=== PATIENT | female | born 1945 | race Caucasian/White ===

== ENCOUNTER 2016-11-08 16:28 | Emergency (ER) | payer MEDICARE, OTHER ==
[2016-11-08] MEDS ORDERED: Pantoprazole IV* 80 MG in NS 0.9% 250 ML* 250 ML IVPB ONE (17:17)
[2016-11-08] MEDS ORDERED: Pantoprazole IV* 80 MG in NS 0.9% 250 ML* 250 ML IV SCH (18:00)
[2016-11-08 18:03] LABS: Albumin 2.5 g/dL (3.2-5.2); BUN/Creatinine Ratio 49.3 (8-20); Calcium 8.7 mg/dL (8.6-10.3); EGFR African American 49.6 (>60); EGFR Non-African American 38.6 (>60); Globulin 4.5 g/dL (2-4); Potassium 5.2 mmol/L (3.5-5.0); Total Bilirubin 1.7 mg/dL (0.2-1.0)
[2016-11-08 18:04] LABS: Hematocrit 18 % (35-47); Mean Corpuscular HGB Conc 33 g/dl (31-36); Mean Corpuscular Hemoglobin 34 pg (27-31); Mean Corpuscular Volume 101 fL (80-97); Mean Platelet Volume 11 um3 (7.4-10.4); Red Blood Count 1.79 10^6/ul (4.0-5.4); Red Cell Distribution Width 18 % (10.5-15); White Blood Count 7.5 10^3/ul (3.5-10.8)
[2016-11-08 18:05] LABS: Comments Flag Yes
[2016-11-08] MEDS ORDERED: Pantoprazole IV* 40 MG ONE (18:11)
[2016-11-08] MEDS ORDERED: Octreotide Acetate* 50 MCG in NS 0.9% 50 ML* 50 ML IVPB ONE (18:14)
[2016-11-08] MEDS ORDERED: NS 0.9% 1000 ML* 500 ML IV ONE (18:23)
--- NOTE | 2016-11-08 19:34 | ED ---
Elo Livingston Auryana, scribed for Uri Reeder MD on 11/08/16 at 1749 . GI/ HPI - History of Current Complaint Chief Complaint: EDGIBleed Time Seen by Provider: 11/08/16 17:05 Stated Complaint: SENT FOR TRANSFUSION Pain Intensity: 7 - Allergy/Home Medications Allergies/Adverse Reactions: Allergies Allergy/AdvReac Type Severity Reaction Status Date / Time Gemfibrozil Allergy Mild Unknown Verified 11/01/16 15:27 Reaction Details Lisinopril Allergy Mild Rash Verified 11/01/16 15:27 PMH/Surg Hx/FS Hx/Imm Hx Previously Healthy: No - portal HTN, ascites GI History: Reports: Other GI Disorders - history of GI bleed, and esophageal bleed Infectious Disease History: No Infectious Disease History: Denies: Traveled Outside the [place] in Last 30 Days - Family History Known Family History: Positive: Other - cancer, perforated bowel, alzheimers - Social History Occupation: Retired Alcohol Use: None Substance Use Type: Reports: None Smoking Status (MU): Former Smoker Review of Systems Constitutional: Negative Negative: Fever, Chills Eyes: Negative Negative: Erythema ENT: Negative Negative: Sore Throat Positive: Other - low BP. Negative: Chest Pain Respiratory: Negative Negative: Shortness Of Breath, Cough Positive: Nausea, Other - melena . Negative: Abdominal Pain, Vomiting Genitourinary: Negative Negative: dysuria, hematuria Musculoskeletal: Negative Negative: Myalgia, Edema Skin: Negative Negative: Rash Neurological: Negative, Other - no dizziness Psychological: Normal All Other Systems Reviewed And Are Negative: Yes Physical Exam - Summary Physical Exam Summary: Constitutional: Well-developed, Well-nourished, Alert. (-) Distressed Skin: Warm, Dry. Pale appearance. HENT: Normocephalic; Atraumatic Eyes: Conjunctiva normal Neck: Musculoskeletal ROM normal neck. (-) JVD, (-) Stridor, (-) Tracheal deviation Cardio: Rhythm regular, rate normal, Heart sounds normal; Intact distal pulses; The pedal pulses are 2+ and symmetric. Radial pulses are 2+ and symmetric. (-) Murmur Pulmonary/Chest wall: Effort normal. (-) Respiratory distress, (-) Wheezes, (-) Rales Abd: Soft, (-) Tenderness, (-) Distension, (-) Guarding, (-) Rebound. Mild ascites. Musculoskeletal: (-) Edema Lymph: (-) Cervical adenopathy Neuro: Alert, Oriented x3 Psych: Mood and affect Normal Triage Information Reviewed: Yes Vital Signs On Initial Exam: Initial Vitals Temp Pulse Resp BP Pulse Ox 98 F 47 16 86/75 100 11/08/16 16:40 11/08/16 16:40 11/08/16 16:40 11/08/16 16:40 11/08/16 16:40 Vital Signs Reviewed: Yes - [place] Coma Scale Coma Scale Total: 15 Diagnostics - Vital Signs Vital Signs Temp Pulse Resp BP Pulse Ox 11/08/16 17:19 47 15 101/40 100 11/08/16 17:12 47 14 92/36 100 11/08/16 17:09 47 14 100 11/08/16 16:40 98 F 47 16 86/75 100 - Laboratory Result Diagrams: 11/08/16 17:19 11/08/16 17:19 Lab Statement: Any lab studies that have been ordered have been reviewed, and results considered in the medical decision making process. - EKG 17:08 EKG Interpretation: sinus bradycardia @ 48 bpm, no STEMI. Re-Evaluation - Re-Evaluation First Eval Re-Evaluation Time: 18:00 - patient agrees with plan to admit Second Eval Re-Evaluation Time: 19:15 Comment: Blood pressure is 140 systolic. The patient has responded favorable to IV fluids and she is stable. GIGU Course/Dx - Course Assessment/Plan: 71 year old female BIBA for GI bleed s/p appointment at [facility] with Dr. Hoover in [place]. Patient was referred here for further management for low Hgb, and low blood pressure with blood transfusion. She c/o of nausea earlier today, melena, and reports increased weight gain since paracentesis last week. She denies any chest pain, SOB or any hematemesis. Patient reports that she received a blood transfusion last week. She has had prior episodes of GI bleed with unknown source and is scheduled for T.I.P.S. procedure. PMHx is significant for GI and esophageal bleed s/p abdominal and esophageal varices, ascites with paracentesis (1 week ago), portal HTN, and fatty liver. DDx: upper GI bleed, lower GI bleed, peptic ulcer, duodenal ulcer. Blood work shows RBC 1.79, Hbg 6.0, Hct 18, Platelet count 55, INR 0.98 , APTT 26.5, sodium 125, potassium 5.2, CO2 19, BUN 67, creatinine 1.36, BUN/ Creatinine ratio 49.3, GLUCOSE 257, total bilirubin 1.70, albumin 2.5, globin 4.5, albumin/globin ratio 0.6. EKG shows sinus bradycardia @ 48 bpm, no STEMI. Dr. Jewell from [facility] was consulted on the case. He agrees and accepts the patient for transfer. He requests an octreotide drip. The case was discussed with Dr. Ugarte (hospitalist at [facility]) and he accepts patient to telemetry unit. On re-evaluation, her blood pressure is 140 systolic. The patient has responded favorable to IV fluids and she is stable. Patient agrees with plan for transfer. Dx: GI bleed, blood loss anemia, and hypovolemia. - Diagnoses Differential Diagnoses - Female: Other - upper GI bleed, lower GI bleed, peptic ulcer, duodenal ulcer Provider Diagnoses: GI bleed, Hypovolemia, Blood loss anemia - Physician Notifications Discussed Care Of Patient With: Romero Burger Time Discussed With Above Provider: 17:00 - recommends admission and will consult tomorrow morning Instructed by Provider To: Admit As Inpatient - Critical Care Time Critical Care Time: 75-104 min - 90 MINUTES Discharge - Discharge Plan Condition: Stable Disposition: TRANS HIGHER LVL OF CARE FAC GI Bleed HPI - HPI Summary HPI Summary: 71 year old female BIBA for GI bleed s/p appointment at [facility] with Dr. Hoover in [place]. Patient was referred here for further management for low Hgb, and low blood pressure with blood transfusion. She c/o of nausea earlier today , melena, and reports increased weight gain since paracentesis last week. She denies any chest pain, SOB or any hematemesis. Patient reports that she received a blood transfusion last week. She has had prior episodes of GI bleed with unknown source and is scheduled for T.I.P.S. procedure. PMHx is significant for GI and esophageal bleed s/p abdominal and esophageal varices, ascites with paracentesis (1 week ago), portal HTN, and fatty liver. - History Of Current Complaint Chief Complaint: EDGIBleed Stated Complaint: SENT FOR TRANSFUSION Time Seen by Provider: 11/08/16 17:05 Hx Obtained From: Patient Hx Last Menstrual Period: n/a ?: No Onset/Duration: Gradual Onset, Still Present Timing: Constant Severity: Black Tarry Stool Severity Initially: Moderate Severity Currently: Moderate Pain Intensity: 7 Pain Scale Used: 0-10 Numeric Associated Pain: None Associated Signs And Symptoms: Positive: Nausea, Other - melena Related History: Similar Episode/Dx As - SEE HPI, Other Bleeding Source(s) - SEE HPI - Allergies/Home medications Allergies/Adverse Reactions: Allergies Allergy/AdvReac Type Severity Reaction Status Date / Time Gemfibrozil Allergy Mild Unknown Verified 11/01/16 15:27 Reaction Details Lisinopril Allergy Mild Rash Verified 11/01/16 15:27 The documentation as recorded by the Elo pickering Auryana accurately reflects the service I personally performed and the decisions made by Lilli giordano Jerry, MD.
[2016-11-08] MEDS ORDERED: Ondansetron INJ* 2 MG/ML VIAL IV ONE (20:19)
[2016-11-08 20:52] VITALS: BP 130/42
== END 2016-11-08 20:52 | disposition short-term general hospital (02) ==
LOC: ED 16:28
DX: K92.2 Gastrointestinal hemorrhage, unspecified (principal); R11.0 Nausea; D50.0 Iron deficiency anemia secondary to blood loss (chronic); E86.1 Hypovolemia
CPT/HCPCS: 36415; 36430; 80053; 85025; 85610; 85730; 86850; 86900; 86901; 86922; 93005; 99285; J2405; P9016; P9040

== ENCOUNTER 2016-12-31 12:57 | Inpatient (IN) | payer MEDICARE, OTHER ==
[2016-12-31 14:07] LABS: Hematocrit 24 % (35-47); Hemoglobin 8.3 g/dl (12.0-16.0); Mean Corpuscular HGB Conc 35 g/dl (31-36); Mean Corpuscular Hemoglobin 34 pg (27-31); Mean Corpuscular Volume 96 fL (80-97); Mean Platelet Volume 8 um3 (7.4-10.4); Red Blood Count 2.48 10^6/ul (4.0-5.4); Red Cell Distribution Width 25 % (10.5-15); White Blood Count 4.2 10^3/ul (3.5-10.8)
[2016-12-31 14:08] LABS: Add Diff/Slide Review? Manual Diff Added; Comments Flag Yes
[2016-12-31 14:22] LABS: Albumin 2.4 g/dL (3.2-5.2); BUN/Creatinine Ratio 25.3 (8-20); C Reactive Protein 21.87 mg/L (< 5.00); EGFR Non-African American 64.6 (>60); Globulin 5.5 g/dL (2-4); Total Bilirubin 7.4 mg/dL (0.2-1.0); Total Protein 7.9 g/dL (6.4-8.9)
[2016-12-31 14:32] LABS: Eosinophils % 8 % (0-6); Immature Granulocytes 1 % (0-9); Myelocytes % 1 % (0-1); Neutrophil % 84 % (38-83)
[2016-12-31 14:33] LABS: Add Path Review? YES; Hypochromasia 1+
[2016-12-31 15:08] LABS: Corrected Retic Count 9.6 % (0.5-1.5); Immature Retic Fraction 0.56
[2016-12-31 15:10] LABS: Comments Flag Yes
--- NOTE | 2016-12-31 15:15 | ED ---
Lilo Livingston Alfonso, scribed for Jamie Mckenzie MD on 12/31/16 at 1326 . Complex/Multi-Sys Presentation - HPI Summary HPI Summary: This patient is a 71 year old F BIBA to [facility] accompanied by with a chief complaint of general weakness since this morning. The patient rates the pain 0/10 in severity. Symptoms aggravated by nothing. Symptoms alleviated by nothing. Patient reports confusion. reports screaming, and shoulder pain. Patient denies melena. PMHx includes fatty liver disease, and DMII. - History Of Current Complaint Chief Complaint: EDGeneral Time Seen by Provider: 12/31/16 13:16 Hx Obtained From: Patient, Family/Jaw Skinner Onset/Duration: Sudden Onset, Lasting Hours, Still Present Timing: Constant Aggravating Factor(s): nothing Alleviating Factor(s): nothing Associated Signs And Symptoms: Positive: Other - confusion. reports screaming, and shoulder pain. Patient denies melena. - Allergies/Home Medications Allergies/Adverse Reactions: Allergies Allergy/AdvReac Type Severity Reaction Status Date / Time Gemfibrozil Allergy Mild Unknown Verified 12/11/16 12:53 Reaction Details Lisinopril Allergy Mild Rash Verified 12/11/16 12:53 PMH/Surg Hx/FS Hx/Imm Hx Endocrine/Hematology History: Reports: Hx Diabetes GI History: Reports: Other GI Disorders - history of GI bleed, and esophageal bleed. fatty liver disease Sensory History: Denies: Hx Deafness Opthamlomology History: Denies: Hx Legally Blind Infectious Disease History: Denies: Traveled Outside the [place] in Last 30 Days - Family History Known Family History: Positive: Other - cancer, perforated bowel, alzheimers - Social History Alcohol Use: None Substance Use Type: Reports: None Smoking Status (MU): Former Smoker Review of Systems Positive: Other - Negative melena Positive: Other - shoulder pain Neurological: Other - Weakness, screaming and confusion All Other Systems Reviewed And Are Negative: Yes Physical Exam Triage Information Reviewed: Yes Vital Signs On Initial Exam: Initial Vitals Temp Pulse Resp BP Pulse Ox 97.8 F 54 18 136/33 99 12/31/16 13:00 12/31/16 13:00 12/31/16 13:00 12/31/16 13:00 12/31/16 13:00 Vital Signs Reviewed: Yes Appearance: Positive: Well-Appearing, No Pain Distress Skin: Positive: Warm, Dry, Jaundiced Head/Face: Positive: Normal Head/Face Inspection Eyes: Positive: Other: - scleral icterus ENT: Positive: Normal ENT inspection Neck: Positive: Supple, Nontender Respiratory/Lung Sounds: Positive: Clear to Auscultation, Breath Sounds Present Cardiovascular: Positive: RRR Abdomen Description: Positive: Nontender, Soft Bowel Sounds: Positive: Present Musculoskeletal: Positive: Other - Pitting edema +1 bilaterally. Neurological: Positive: Sensory/Motor Intact, Alert, Oriented to Person Place, Time, Other - Asterixis. Psychiatric: Positive: Affect/Mood Appropriate Diagnostics - Vital Signs Vital Signs Temp Pulse Resp BP Pulse Ox 12/31/16 13:00 97.8 F 54 18 136/33 99 - Laboratory Lab Results: Lab Results 12/31/16 12/31/16 12/31/16 Range/Units 13:56 13:56 13:56 WBC (3.5-10.8) 10^3/ul RBC (4.0-5.4) 10^6/ul RBC (Retic) (4.6-6.2) 10^6/ul Hgb (12.0-16.0) g/dl Hct (35-47) % HCT (Retic) (35-47) % MCV (80-97) fL MCH (27-31) pg MCHC (31-36) g/dl RDW (10.5-15) % Plt Count (150-450) 10^3/ul MPV (7.4-10.4) um3 Immature Gran % (Auto) (0-9) % Neut % (Auto) (38-83) % Lymph % (Auto) (25-47) % Atkinson % (Auto) (1-9) % Eos % (Auto) (0-6) % Baso % (Auto) (0-2) % Absolute Neuts (auto) (1.5-7.7) 10^3/ul Absolute Lymphs (auto) (1.0-4.8) 10^3/ul Absolute Monos (auto) (0-0.8) 10^3/ul Absolute Eos (auto) (0-0.6) 10^3/ul Absolute Basos (auto) (0-0.2) 10^3/ul Absolute Nucleated RBC 10^3/ul Neutrophils % (38-83) % Lymphocytes % (25-47) % Monocytes % (0-13) % Eosinophils % (0-6) % Myelocytes % (0-1) % Nucleated RBC % Normal RBC Morphology Hypochromasia Retic Count, Calc (0.5-1.5) % Corrected Retic Count (0.5-1.5) % Retic Shift Factor Retic Production Index Immature Retic Fraction Mean Retic Volume Hem Pathologist Commnt INR (Anticoag Therapy) 1.29 H (0.89-1.11) Sodium 133 (133-145) mmol/L Potassium 4.0 (3.5-5.0) mmol/L Chloride 101 (101-111) mmol/L Carbon Dioxide 27 (22-32) mmol/L Anion Gap 5 (2-11) mmol/L BUN 22 (6-24) mg/dL Creatinine 0.87 (0.51-0.95) mg/dL Est GFR ( Amer) 83.0 (>60) Est GFR (Non-Af Amer) 64.6 (>60) BUN/Creatinine Ratio 25.3 H (8-20) Glucose 268 H (70-100) mg/dL Lactic Acid (0.5-2.0) mmol/L Calcium 9.0 (8.6-10.3) mg/dL Total Bilirubin 7.40 H (0.2-1.0) mg/dL AST 42 H (13-39) U/L ALT 15 (7-52) U/L Alkaline Phosphatase 104 (34-104) U/L Ammonia 74 H (16-53) mol/L Lactate Dehydrogenase Pending C-Reactive Protein 21.87 H (< 5.00) mg/L Total Protein 7.9 (6.4-8.9) g/dL Albumin 2.4 L (3.2-5.2) g/dL Globulin 5.5 H (2-4) g/dL Albumin/Globulin Ratio 0.4 L (1-3) Lipase 16 (11.0-82.0) U/L 12/31/16 12/31/16 Range/Units 13:56 13:56 WBC 4.2 (3.5-10.8) 10^3/ul RBC 2.48 L (4.0-5.4) 10^6/ul RBC (Retic) 6.18 (4.6-6.2) 10^6/ul Hgb 8.3 L (12.0-16.0) g/dl Hct 24 L (35-47) % HCT (Retic) 60 H (35-47) % MCV 96 (80-97) fL MCH 34 H (27-31) pg MCHC 35 (31-36) g/dl RDW 25 H (10.5-15) % Plt Count 52 L (150-450) 10^3/ul MPV 8 (7.4-10.4) um3 Immature Gran % (Auto) 1 (0-9) % Neut % (Auto) 79.3 (38-83) % Lymph % (Auto) 11.5 L (25-47) % Atkinson % (Auto) 3.1 (1-9) % Eos % (Auto) 5.8 (0-6) % Baso % (Auto) 0.3 (0-2) % Absolute Neuts (auto) 3.5 (1.5-7.7) 10^3/ul Absolute Lymphs (auto) 0.2 L (1.0-4.8) 10^3/ul Absolute Monos (auto) 0.1 (0-0.8) 10^3/ul Absolute Eos (auto) 0.3 (0-0.6) 10^3/ul Absolute Basos (auto) 0 (0-0.2) 10^3/ul Absolute Nucleated RBC 0.12 10^3/ul Neutrophils % 84 H (38-83) % Lymphocytes % 5 L (25-47) % Monocytes % 2 (0-13) % Eosinophils % 8 H (0-6) % Myelocytes % 1 (0-1) % Nucleated RBC % 6.2 Normal RBC Morphology Not Reportable Hypochromasia 1+ Retic Count, Calc 7.2 H (0.5-1.5) % Corrected Retic Count 9.6 H (0.5-1.5) % Retic Shift Factor 1.0 Retic Production Index 9.60 Immature Retic Fraction 0.56 Mean Retic Volume 126.8 Hem Pathologist Commnt Pending INR (Anticoag Therapy) (0.89-1.11) Sodium (133-145) mmol/L Potassium (3.5-5.0) mmol/L Chloride (101-111) mmol/L Carbon Dioxide (22-32) mmol/L Anion Gap (2-11) mmol/L BUN (6-24) mg/dL Creatinine (0.51-0.95) mg/dL Est GFR ( Amer) (>60) Est GFR (Non-Af Amer) (>60) BUN/Creatinine Ratio (8-20) Glucose (70-100) mg/dL Lactic Acid 1.9 (0.5-2.0) mmol/L Calcium (8.6-10.3) mg/dL Total Bilirubin (0.2-1.0) mg/dL AST (13-39) U/L ALT (7-52) U/L Alkaline Phosphatase (34-104) U/L Ammonia (16-53) mol/L Lactate Dehydrogenase C-Reactive Protein (< 5.00) mg/L Total Protein (6.4-8.9) g/dL Albumin (3.2-5.2) g/dL Globulin (2-4) g/dL Albumin/Globulin Ratio (1-3) Lipase (11.0-82.0) U/L Result Diagrams: 12/31/16 13:56 12/31/16 13:56 Lab Statement: Any lab studies that have been ordered have been reviewed, and results considered in the medical decision making process. Re-Evaluation - Re-Evaluation First Eval Re-Evaluation Time: 15:01 Comment: Discussed plan for admission with pt. Complex Multi-Symp Course/Dx Course Of Treatment: Ms. Mckee presented with increasing confusion. She was jaundiced with asterixis and an elevated NH4. She will be admitted to the hospital to W/U her possible GI bleed and resultant hepatic encephalopathy. - Diagnoses Provider Diagnoses: Hepatic encephalopathy - Physician Notifications Discussed Care Of Patient With: Pamela Alamo Time Discussed With Above Provider: 15:00 Instructed by Provider To: Other - Consulted Dr. Alamo (hospitalist) who agrees to admit and Dr. Watt will consult. Discharge - Discharge Plan Condition: Stable Disposition: ADMITTED TO [facility] Referrals: Chris Simpson MD [Primary Care Provider] - The documentation as recorded by the Lilo pickering Alfonso accurately reflects the service I personally performed and the decisions made by , Jamie Mckenzie MD.
[2016-12-31] MEDS ORDERED: Ondansetron INJ* 2 MG/ML VIAL IV PRN (15:40)
[2016-12-31] MEDS ORDERED: Dextrose 50% Syringe 50 ML* 25 GM/50 ML SYRINGE IV PUSH PRN (15:43)
--- NOTE | 2016-12-31 16:13 | RAD ---
INDICATION: Altered mental status. COMPARISON: There are no prior studies available for comparison. TECHNIQUE: Contiguous axial sections of the brain were obtained from the skull base to the vertex without contrast. FINDINGS: The ventricles, cisterns and sulci are enlarged consistent with age-related atrophy. No significant focal abnormality or mass effect is seen. There is no evidence for hemorrhage. No significant focal osseous abnormality is seen. The visualized portion of the paranasal sinuses and mastoid air cells appear clear. IMPRESSION: NO EVIDENCE FOR GROSS ACUTE INFARCT, MASS EFFECT OR HEMORRHAGE.
[2016-12-31] MEDS: Furosemide IV* 10 MG/ML VIAL (40 MG) IV SLOW PU SCH (17:29)
[2016-12-31] MEDS: Insulin LISPRO* 1 UNITS UNIT SUBCUT SCH (17:56)
--- NOTE | 2016-12-31 18:03 | HP ---
CC: Dr. Simpson; Dr. Raphael * HISTORY AND PHYSICAL: DATE OF ADMISSION: 12/31/16. PRIMARY CARE PROVIDER: Dr. Simpson. ATTENDING PHYSICIAN WHILE IN THE HOSPITAL: Pamela Mejia MD * (Report dictated by Fabrice Gonzalez NP). CHIEF COMPLAINT: Altered mental status. CONSULTING UPHOLSTERY CUTTER: Dr. Raphael. HISTORY OF PRESENT ILLNESS: Ms. Mckee is a 71-year-old female patient with a history of nonalcoholic cirrhosis. She has a history of portal hypertension, GI bleed in the past with varices, history of diabetes, aortic stenosis, hyperlipidemia, and anemia. She comes in today, according to the this morning was acting quite frantic, not acting herself, acting very confused, and did not know what was going on. She thought she was going to . She was saying things that just were not making any sense. He was concerned and brought her into the hospital. There were reports by the patient that she was taking lactulose, but had stopped taking it within at least the last 1 to 2 weeks and also had stopped taking her rifaximin. There have been no reports of bleeding to me. There have been no reports of vomiting blood. No tarry stools. She has been worked up in the outpatient setting for anemia and actually was supposed to see Dr. Raphael for this tomorrow. There has been no reports of fever, no reports of abdominal discomfort. With the exception of the rifaximin and lactulose, she had been taking her other medications as prescribed , but unfortunately, the patient's confusion was not getting any better, so she came into the hospital. The family does note that in the last week she has had a progressive worsening decline in the sense that she has been more tired, she has been a little confused at times, but today it was much worse. She was evaluated in the ED, it was noted that her ammonia was 74 and because of this, the hospitalist service was asked to evaluate for admission. PAST MEDICAL HISTORY: Significant for: 1. Cirrhosis. 2. ROSA. 3. Portal hypertension. 4. History of GI bleed. 5. Esophageal varices. 6. Diabetes. 7. Aortic stenosis. 8. Hyperlipidemia. 9. Anemia, which is being worked up in the outpatient setting. We will try to get those records. PAST SURGICAL HISTORY: 1. She has had a TIPS. 2. . 3. Variceal banding. 4. Laparoscopic cholecystectomy. HOME MEDICATIONS: Include: 1. Rifaximin 550 mg p.o. b.i.d. 2. Nitro 0.4 mg sublingual q.5 minutes p.r.n. chest pain x3. 3. Imodium 2 mg p.o. daily as needed. 4. Lantus 30 units subcu at bedtime. 5. Insulin aspart 5 to 10 units subcu t.i.d. sliding scale. 6. Lasix 80 mg daily. 7. Ferrous gluconate 1 tablet p.o. b.i.d. 8. Aldactone 100 mg p.o. daily. 9. Simethicone 125 mg p.o. every 6 hours as needed. 10. Omeprazole 20 mg daily. 11. Nadolol (Corgard) 40 mg daily. 12. Multivitamin 1 tablet daily. 13. Detrol 2 mg p.o. at bedtime. ALLERGIES TO MEDICATIONS: Include GEMFIBROZIL and LISINOPRIL. FAMILY HISTORY: Mother had a history of CVA. Father's history was reviewed. There is no report of cirrhosis or CVA, and otherwise is noncontributory. SOCIAL HISTORY: She does not smoke, she does not drink. She lives at [facility]. Surrogate decision makers are her daughter and her . REVIEW OF SYSTEMS: There is no documented fever. There was no significant weight change reported. There was no double vision. No ear discharge. No rhinorrhea. No sore throat. No thyroid enlargement. She denied having any chest discomfort. There was no shortness of breath. There was no report of abdominal pain. There was no nausea or vomiting. Again, no reports of tarry stools or vomiting blood or coffee-ground emesis. She denied any loss of consciousness, no seizure activity is reported. Review of 14 systems completed , all others are negative. PHYSICAL EXAMINATION GENERAL: At this time, Ms. Mckee is a 71-year-old female patient. She is sitting on the ER stretcher. She does not appear to be in any acute distress. VITAL SIGNS: Blood pressure 147/45, pulse 62, respirations 18, O2 sat 99%, temperature 98.7. HEENT: Head is atraumatic, normocephalic. Eyes: EOMs are intact. Sclerae was anicteric. Throat: Oral mucosa appears to be moist. No oropharyngeal erythema. NECK: Supple. LUNGS: Clear to auscultation bilaterally. No wheezes, rales or rhonchi. HEART: Sounds S1 and S2. Regular rate and rhythm. No murmurs, rubs or gallops. ABDOMEN: Soft, flat. There did appear to be a mild amount of ascites, but it was nontender. EXTREMITIES: Pulses were 2+ throughout. She is able to move all 4 extremities. She had +2 pitting edema bilaterally. NEUROLOGIC: She is awake, she is alert and oriented x3, but when talking with her at times she does not follow conversation well and sometimes her responses are delayed and she does repeat herself at times, which is not normal according to the family. Auzn-ac-[id number] intact bilaterally. Pjtozu-cu-bqli intact bilaterally. She has no drift noted. No pronator drift. She does have asterixis noted on exam, but no other focal neuro deficits were noted and, again , responses were slow when she wanted to answer. SKIN: Intact. DIAGNOSTIC STUDIES/LABORATORY DATA: Labs revealed a WBC of 4.2, RBC of 2.48, hemoglobin of 8.3, hematocrit was 24. Her hemoglobin normally runs right around 9, according to the family, and just 5 days ago it was 9. Platelet count was 52. INR 1.29. Sodium is 134, potassium 4, chloride of 101, bicarb 27 , BUN 22, creatinine of 0.87, glucose 268, lactate 1.9, calcium 9. Total bili was 7.4. It has been that high just 5 days ago and her LDH is pending. Ammonia 74. AST 42, ALT 15, alk phos 104. CRP 21, lipase 16. Urine is pending. Old medical records were reviewed. ASSESSMENT AND PLAN: Ms. Mckee is a 71-year-old female patient coming into the ER today with complaints of altered mental status. On evaluation today, it does appear that she again appears to be encephalopathic. She will be admitted under observation status for: 1. Altered mental status. I suspect that this is related to hepatic encephalopathy from medication noncompliance. She does state she stopped taking her lactulose because she did not like the way it made her feel. She also stopped taking her rifaximin. We are going to get her back on both these medications. I will check a CT of the brain to make sure there is not any other cause of altered mental status. I will also check her urine as well. We will get her back on these medications. Repeat the ammonia in the morning and we will continue to follow her clinically. 2. Anemia. Again, I am going to get the records from Dr. Hoover's office and also get the records from [facility]. She just had a TIPS in the beginning of last month and also she is scheduled to see Dr. Raphael. We will have him come and evaluate the patient with concern for possible hemolytic anemia. According to the patient, her LDH and haptoglobin were both high, but we will check the LDH again here today. I did send off the haptoglobin and we are also getting a direct Yamel test as well. Again, Dr. Raphael will be in to evaluate. 3. 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 At this point, we will go ahead and continue the spironolactone. I have converted her Lasix to IV. In addition to this, we will continue get her on the rifaximin and the lactulose and we will continue her nadolol as well. 4. Portable hypertension. Continue meds as prescribed. 5. History of GI bleed and varices. She does not appear to be actively bleeding currently. We will monitor for this. 6. Diabetes. Put on lispro sliding scale. 7. Aortic stenosis. Follow up with primary. 8. Hyperlipidemia. Continue the current meds as prescribed. 9. DVT prophylaxis. Because of, again, the low platelets and the fact that she does have a history of bleeding and anemia, I think it is going to be safer to put her on SCDs and holding on heparin. 10. Code status. She is full code. 11. Fluids, electrolytes, and nutrition. She can have a consistent carb diet. TIME SPENT: Time spent on the admission was 60 minutes, greater than half the time was spent face to face with the patient obtaining my history and physical, the other half of the time was spent on going over the plan of care with the patient and implementing the place of care. I did discuss the plan of care with my attending, Dr. Mejia, she is in agreement. FABRICE GONZALEZ, HAND METHOD LASTING MACHINE OPERATOR [id number]/[facility] #: [id number] [place]
[2016-12-31] MEDS: RiFAXimin* 550 MG TAB PO SCH (20:38)
[2016-12-31] MEDS: Ferrous Gluconate TAB* 324 MG TAB PO SCH (20:38)
[2016-12-31] MEDS: Oxybutynin TAB* 5 MG PO SCH (20:38)
[2016-12-31] MEDS: Insulin GLARGINE(*) 1 UNITS UNIT SUBCUT SCH (20:40)
[2016-12-31] MEDS ORDERED: RiFAXimin* 550 MG TAB PO SCH (21:00)
[2017-01-01 05:01] LABS: Hematocrit 20 % (35-47); Hemoglobin 7.2 g/dl (12.0-16.0); Mean Corpuscular HGB Conc 35 g/dl (31-36); Mean Corpuscular Hemoglobin 34 pg (27-31); Mean Corpuscular Volume 97 fL (80-97); Mean Platelet Volume 8 um3 (7.4-10.4); Red Blood Count 2.11 10^6/ul (4.0-5.4); Red Cell Distribution Width 25 % (10.5-15); White Blood Count 3.5 10^3/ul (3.5-10.8)
[2017-01-01 05:02] LABS: Add Diff/Slide Review? Manual Diff Added; Comments Flag Yes
[2017-01-01 06:17] LABS: BUN/Creatinine Ratio 21.4 (8-20); Calcium 8.7 mg/dL (8.6-10.3); EGFR African American 86.5 (>60); EGFR Non-African American 67.2 (>60); Potassium 4.3 mmol/L (3.5-5.0)
[2017-01-01] MEDS: Insulin LISPRO* 1 UNITS UNIT SUBCUT SCH ×3 (07:56→17:26)
[2017-01-01 09:05] LABS: Direct Bilirubin 1.9 mg/dL (0.03-0.18); Indirect Bilirubin 4.2 mg/dL (0.3-1.0); Total Bilirubin 6.1 mg/dL (0.2-1.0)
[2017-01-01] MEDS: Nadolol TAB* 40 MG PO SCH (10:18)
[2017-01-01] MEDS: Ferrous Gluconate TAB* 324 MG TAB PO SCH ×2 (10:18→21:32)
[2017-01-01] MEDS: Spironolactone TAB* 25 MG PO SCH (10:18)
[2017-01-01] MEDS: Multivitamins/Minerals TAB PO SCH (10:18)
[2017-01-01] MEDS: Omeprazole CAP* 20 MG PO SCH (10:19)
[2017-01-01] MEDS: RiFAXimin* 550 MG TAB PO SCH ×2 (10:19→21:32)
[2017-01-01] MEDS: Furosemide IV* 10 MG/ML VIAL (40 MG) IV SLOW PU SCH (10:19)
[2017-01-01] MEDS ORDERED: Metoclopramide IV* 5 MG/ML 2 ML VIAL IV PRN (13:01)
[2017-01-01 14:25] LABS: Urine Bilirubin Negative (Negative); Urine Glucose Negative (Negative); Urine Nitrite Negative (Negative)
--- NOTE | 2017-01-01 18:18 | PN ---
Subjective Date of Service: 01/01/17 Interval History: Patient's mental state is much improved over reports from yesterday. Patient was able to take lactulose and rifaximin. Patient had nausea and multiple episodes of vomiting after lactulose administration that was unaffected by zofran. Patient denies CP, SOB, Diarrhea, constipation, black, tarry, or bloody stools. Family History: Unchanged from Admission Social History: Unchanged from Admission Past Medical History: Unchanged from Admission Objective Active Medications: Dextrose (D50w Syringe 50 Ml*) 12.5 gm IV PUSH .FOR FS < 60 - SS PRN PRN Reason: FS < 60 Ferrous Gluconate (Fergon Tab*) 324 mg PO BID [facility] Last Admin: 01/01/17 10:18 Dose: 324 mg Furosemide (Lasix Iv*) 80 mg IV SLOW PU DAILY SERG Last Admin: 01/01/17 10:19 Dose: 80 mg Insulin Glargine (Lantus(*)) 30 units SUBCUT BEDTIME SERG Last Admin: 12/31/16 20:40 Dose: 30 unit Insulin Human Lispro (Humalog*) 0 units SUBCUT AC SERG PRN Reason: Protocol Last Admin: 01/01/17 17:26 Dose: 8 units Lactulose (Lactulose*) 30 ml PO BID [facility] Metoclopramide HCl (Reglan Iv*) 5 mg IV Q6H PRN PRN Reason: NAUSEA/VOMITING Last Admin: 01/01/17 16:09 Dose: 5 mg Multivitamins/Minerals (Theragran/Minerals Tab*) 1 tab PO DAILY SERG Last Admin: 01/01/17 10:18 Dose: 1 tab Nadolol (Corgard Tab*) 40 mg PO DAILY SERG Last Admin: 01/01/17 10:18 Dose: 40 mg Omeprazole (Prilosec Cap*) 20 mg PO DAILY SERG Last Admin: 01/01/17 10:19 Dose: 20 mg Ondansetron HCl (Zofran Inj*) 4 mg IV Q6H PRN PRN Reason: NAUSEA Last Admin: 01/01/17 12:05 Dose: 4 mg Oxybutynin Chloride (Ditropan Tab*) 5 mg PO BEDTIME SERG PRN Reason: Protocol Last Admin: 12/31/16 20:38 Dose: 5 mg Rifaximin (Xifaxan*) 550 mg PO BID SERG Last Admin: 01/01/17 10:19 Dose: 550 mg Spironolactone (Aldactone Tab*) 100 mg PO DAILY [facility] Last Admin: 01/01/17 10:18 Dose: 100 mg Vital Signs 12/31/16 12/31/16 01/01/17 20:22 23:13 03:16 Temperature 98.0 F 97.6 F 97.3 F Pulse Rate 61 63 61 Respiratory 20 13 16 Rate Blood Pressure 125/41 156/49 120/33 (mmHg) O2 Sat by Pulse 99 100 100 Oximetry 01/01/17 01/01/17 01/01/17 06:28 10:26 12:46 Temperature 98.6 F 98.1 F Pulse Rate 66 63 Respiratory 13 16 Rate Blood Pressure 110/35 126/56 138/48 (mmHg) O2 Sat by Pulse 98 100 Oximetry Oxygen Devices in Use Now: None Appearance: Patient is a 71yo female who appears stated age and is sitting confortably in her chair. Eyes: No Scleral Icterus, PERRLA Ears/Nose/Mouth/Throat: Clear Oropharnyx, Mucous Membranes Moist, - - Slight jaundice of soft palate, mucosa pale. Neck: NL Appearance and Movements; NL JVP Respiratory: Symmetrical Chest Expansion and Respiratory Effort, Clear to Auscultation Cardiovascular: NL Sounds; No Murmurs; No JVD, RRR, No Edema Abdominal: NL Sounds; No Tenderness; No Distention, - - Nondistended, possible ascetic fluid. Enlarged liver and spleen Lymphatic: No Cervical Adenopathy Extremities: No Edema Skin: No Rash or Ulcers Neurological: Alert and Oriented x 3, NL Sensation, NL Gait, NL Muscle Strength and Tone Result Diagrams: 01/01/17 04:38 01/01/17 04:38 Additional Lab and Data: Lab Results 12/31/16 12/31/16 12/31/16 Range/Units 13:56 13:56 13:56 WBC (3.5-10.8) 10^3/ul RBC (4.0-5.4) 10^6/ul RBC (Retic) (4.6-6.2) 10^6/ul Hgb (12.0-16.0) g/dl Hct (35-47) % HCT (Retic) (35-47) % MCV (80-97) fL MCH (27-31) pg MCHC (31-36) g/dl RDW (10.5-15) % Plt Count (150-450) 10^3/ul MPV (7.4-10.4) um3 Immature Gran % (Auto) (0-9) % Neut % (Auto) (38-83) % Lymph % (Auto) (25-47) % [place] % (Auto) (1-9) % Eos % (Auto) (0-6) % Baso % (Auto) (0-2) % Absolute Neuts (auto) (1.5-7.7) 10^3/ul Absolute Lymphs (auto) (1.0-4.8) 10^3/ul Absolute Monos (auto) (0-0.8) 10^3/ul Absolute Eos (auto) (0-0.6) 10^3/ul Absolute Basos (auto) (0-0.2) 10^3/ul Absolute Nucleated RBC 10^3/ul Neutrophils % (38-83) % Lymphocytes % (25-47) % Monocytes % (0-13) % Eosinophils % (0-6) % Myelocytes % (0-1) % Nucleated RBC % Normal RBC Morphology Hypochromasia Retic Count, Calc (0.5-1.5) % Corrected Retic Count (0.5-1.5) % Retic Shift Factor Retic Production Index Immature Retic Fraction Mean Retic Volume Hem Pathologist Commnt INR (Anticoag Therapy) 1.29 H (0.89-1.11) Sodium 133 (133-145) mmol/L Potassium 4.0 (3.5-5.0) mmol/L Chloride 101 (101-111) mmol/L Carbon Dioxide 27 (22-32) mmol/L Anion Gap 5 (2-11) mmol/L BUN 22 (6-24) mg/dL Creatinine 0.87 (0.51-0.95) mg/dL Est GFR ( Amer) 83.0 (>60) Est GFR (Non-Af Amer) 64.6 (>60) BUN/Creatinine Ratio 25.3 H (8-20) Glucose 268 H (70-100) mg/dL Lactic Acid (0.5-2.0) mmol/L Calcium 9.0 (8.6-10.3) mg/dL Total Bilirubin 7.40 H (0.2-1.0) mg/dL AST 42 H (13-39) U/L ALT 15 (7-52) U/L Alkaline Phosphatase 104 (34-104) U/L Ammonia 74 H (16-53) mol/L Lactate Dehydrogenase Pending C-Reactive Protein 21.87 H (< 5.00) mg/L Total Protein 7.9 (6.4-8.9) g/dL Albumin 2.4 L (3.2-5.2) g/dL Globulin 5.5 H (2-4) g/dL Albumin/Globulin Ratio 0.4 L (1-3) Lipase 16 (11.0-82.0) U/L 12/31/16 12/31/16 Range/Units 13:56 13:56 WBC 4.2 (3.5-10.8) 10^3/ul RBC 2.48 L (4.0-5.4) 10^6/ul RBC (Retic) 6.18 (4.6-6.2) 10^6/ul Hgb 8.3 L (12.0-16.0) g/dl Hct 24 L (35-47) % HCT (Retic) 60 H (35-47) % MCV 96 (80-97) fL MCH 34 H (27-31) pg MCHC 35 (31-36) g/dl RDW 25 H (10.5-15) % Plt Count 52 L (150-450) 10^3/ul MPV 8 (7.4-10.4) um3 Immature Gran % (Auto) 1 (0-9) % Neut % (Auto) 79.3 (38-83) % Lymph % (Auto) 11.5 L (25-47) % [place] % (Auto) 3.1 (1-9) % Eos % (Auto) 5.8 (0-6) % Baso % (Auto) 0.3 (0-2) % Absolute Neuts (auto) 3.5 (1.5-7.7) 10^3/ul Absolute Lymphs (auto) 0.2 L (1.0-4.8) 10^3/ul Absolute Monos (auto) 0.1 (0-0.8) 10^3/ul Absolute Eos (auto) 0.3 (0-0.6) 10^3/ul Absolute Basos (auto) 0 (0-0.2) 10^3/ul Absolute Nucleated RBC 0.12 10^3/ul Neutrophils % 84 H (38-83) % Lymphocytes % 5 L (25-47) % Monocytes % 2 (0-13) % Eosinophils % 8 H (0-6) % Myelocytes % 1 (0-1) % Nucleated RBC % 6.2 Normal RBC Morphology Not Reportable Hypochromasia 1+ Retic Count, Calc 7.2 H (0.5-1.5) % Corrected Retic Count 9.6 H (0.5-1.5) % Retic Shift Factor 1.0 Retic Production Index 9.60 Immature Retic Fraction 0.56 Mean Retic Volume 126.8 Hem Pathologist Commnt Pending INR (Anticoag Therapy) (0.89-1.11) Sodium (133-145) mmol/L Potassium (3.5-5.0) mmol/L Chloride (101-111) mmol/L Carbon Dioxide (22-32) mmol/L Anion Gap (2-11) mmol/L BUN (6-24) mg/dL Creatinine (0.51-0.95) mg/dL Est GFR ( Amer) (>60) Est GFR (Non-Af Amer) (>60) BUN/Creatinine Ratio (8-20) Glucose (70-100) mg/dL Lactic Acid 1.9 (0.5-2.0) mmol/L Calcium (8.6-10.3) mg/dL Total Bilirubin (0.2-1.0) mg/dL AST (13-39) U/L ALT (7-52) U/L Alkaline Phosphatase (34-104) U/L Ammonia (16-53) mol/L Lactate Dehydrogenase C-Reactive Protein (< 5.00) mg/L Total Protein (6.4-8.9) g/dL Albumin (3.2-5.2) g/dL Globulin (2-4) g/dL Albumin/Globulin Ratio (1-3) Lipase (11.0-82.0) U/L 12/31/16 12/31/16 12/31/16 13:56 13:56 13:56 WBC RBC RBC (Retic) Hgb Hct HCT (Retic) MCV MCH MCHC RDW Plt Count MPV Immature Gran % (Auto) Neut % (Auto) Lymph % (Auto) [place] % (Auto) Eos % (Auto) Baso % (Auto) Absolute Neuts (auto) Absolute Lymphs (auto) Absolute Monos (auto) Absolute Eos (auto) Absolute Basos (auto) Absolute Nucleated RBC Neutrophils % Lymphocytes % Monocytes % Eosinophils % Myelocytes % Nucleated RBC % Normal RBC Morphology Hypochromasia Retic Count, Calc Corrected Retic Count Retic Shift Factor Retic Production Index Immature Retic Fraction Mean Retic Volume Haptoglobin Hem Pathologist Commnt INR (Anticoag Therapy) 1.29 H Sodium 133 Potassium 4.0 Chloride 101 Carbon Dioxide 27 Anion Gap 5 BUN 22 Creatinine 0.87 Est GFR ( Amer) 83.0 Est GFR (Non-Af Amer) 64.6 BUN/Creatinine Ratio 25.3 H Glucose 268 H POC Glucose (mg/dL) Lactic Acid Calcium 9.0 Total Bilirubin 7.40 H Direct Bilirubin Indirect Bilirubin AST 42 H ALT 15 Alkaline Phosphatase 104 Ammonia 74 H Lactate Dehydrogenase 365 H C-Reactive Protein 21.87 H Total Protein 7.9 Albumin 2.4 L Globulin 5.5 H Albumin/Globulin Ratio 0.4 L Lipase 16 Urine Color Urine Appearance Urine pH Ur Specific [place] Urine Protein Urine Ketones Urine Blood Urine Nitrate Urine Bilirubin Urine Urobilinogen Ur Leukocyte Esterase Urine RBC (Auto) Ur Squamous Epith Cells Urine Glucose Direct Antiglob Test 12/31/16 12/31/16 12/31/16 13:56 13:56 13:56 WBC 4.2 RBC 2.48 L RBC (Retic) 6.18 Hgb 8.3 L Hct 24 L HCT (Retic) 60 H MCV 96 MCH 34 H MCHC 35 RDW 25 H Plt Count 52 L MPV 8 Immature Gran % (Auto) 1 Neut % (Auto) 79.3 Lymph % (Auto) 11.5 L [place] % (Auto) 3.1 Eos % (Auto) 5.8 Baso % (Auto) 0.3 Absolute Neuts (auto) 3.5 Absolute Lymphs (auto) 0.2 L Absolute Monos (auto) 0.1 Absolute Eos (auto) 0.3 Absolute Basos (auto) 0 Absolute Nucleated RBC 0.12 Neutrophils % 84 H Lymphocytes % 5 L Monocytes % 2 Eosinophils % 8 H Myelocytes % 1 Nucleated RBC % 6.2 Normal RBC Morphology Not Reportable Hypochromasia 1+ Retic Count, Calc 7.2 H Corrected Retic Count 9.6 H Retic Shift Factor 1.0 Retic Production Index 9.60 Immature Retic Fraction 0.56 Mean Retic Volume 126.8 Haptoglobin <14 L Hem Pathologist Commnt INR (Anticoag Therapy) Sodium Potassium Chloride Carbon Dioxide Anion Gap BUN Creatinine Est GFR ( Amer) Est GFR (Non-Af Amer) BUN/Creatinine Ratio Glucose POC Glucose (mg/dL) Lactic Acid 1.9 Calcium Total Bilirubin Direct Bilirubin Indirect Bilirubin AST ALT Alkaline Phosphatase Ammonia Lactate Dehydrogenase C-Reactive Protein Total Protein Albumin Globulin Albumin/Globulin Ratio Lipase Urine Color Urine Appearance Urine pH Ur Specific [place] Urine Protein Urine Ketones Urine Blood Urine Nitrate Urine Bilirubin Urine Urobilinogen Ur Leukocyte Esterase Urine RBC (Auto) Ur Squamous Epith Cells Urine Glucose Direct Antiglob Test 12/31/16 12/31/16 01/01/17 13:56 17:26 04:38 WBC 3.5 RBC 2.11 L RBC (Retic) Hgb 7.2 L Hct 20 L HCT (Retic) MCV 97 MCH 34 H MCHC 35 RDW 25 H Plt Count 42 L MPV 8 Immature Gran % (Auto) Neut % (Auto) Lymph % (Auto) [place] % (Auto) Eos % (Auto) Baso % (Auto) Absolute Neuts (auto) 2.5 Absolute Lymphs (auto) 0.4 L Absolute Monos (auto) 0.4 Absolute Eos (auto) 0.2 Absolute Basos (auto) 0 Absolute Nucleated RBC 0 Neutrophils % Lymphocytes % Monocytes % Eosinophils % Myelocytes % Nucleated RBC % Normal RBC Morphology Hypochromasia Retic Count, Calc Corrected Retic Count Retic Shift Factor Retic Production Index Immature Retic Fraction Mean Retic Volume Haptoglobin Hem Pathologist Commnt INR (Anticoag Therapy) Sodium Potassium Chloride Carbon Dioxide Anion Gap BUN Creatinine Est GFR ( Amer) Est GFR (Non-Af Amer) BUN/Creatinine Ratio Glucose POC Glucose (mg/dL) 313 H Lactic Acid Calcium Total Bilirubin Direct Bilirubin Indirect Bilirubin AST ALT Alkaline Phosphatase Ammonia Lactate Dehydrogenase C-Reactive Protein Total Protein Albumin Globulin Albumin/Globulin Ratio Lipase Urine Color Urine Appearance Urine pH Ur Specific [place] Urine Protein Urine Ketones Urine Blood Urine Nitrate Urine Bilirubin Urine Urobilinogen Ur Leukocyte Esterase Urine RBC (Auto) Ur Squamous Epith Cells Urine Glucose Direct Antiglob Test Negative 01/01/17 01/01/17 01/01/17 04:38 04:38 07:25 WBC RBC RBC (Retic) Hgb Hct HCT (Retic) MCV MCH MCHC RDW Plt Count MPV Immature Gran % (Auto) Neut % (Auto) Lymph % (Auto) [place] % (Auto) Eos % (Auto) Baso % (Auto) Absolute Neuts (auto) Absolute Lymphs (auto) Absolute Monos (auto) Absolute Eos (auto) Absolute Basos (auto) Absolute Nucleated RBC Neutrophils % Lymphocytes % Monocytes % Eosinophils % Myelocytes % Nucleated RBC % Normal RBC Morphology Hypochromasia Retic Count, Calc Corrected Retic Count Retic Shift Factor Retic Production Index Immature Retic Fraction Mean Retic Volume Haptoglobin Hem Pathologist Commnt INR (Anticoag Therapy) Sodium 138 Potassium 4.3 Chloride 104 Carbon Dioxide 29 Anion Gap 5 BUN 18 Creatinine 0.84 Est GFR ( Amer) 86.5 Est GFR (Non-Af Amer) 67.2 BUN/Creatinine Ratio 21.4 H Glucose 184 H POC Glucose (mg/dL) 163 H Lactic Acid Calcium 8.7 Total Bilirubin 6.10 H Direct Bilirubin 1.90 H Indirect Bilirubin 4.2 H AST ALT Alkaline Phosphatase Ammonia 35 Lactate Dehydrogenase C-Reactive Protein Total Protein Albumin Globulin Albumin/Globulin Ratio Lipase Urine Color Urine Appearance Urine pH Ur Specific [place] Urine Protein Urine Ketones Urine Blood Urine Nitrate Urine Bilirubin Urine Urobilinogen Ur Leukocyte Esterase Urine RBC (Auto) Ur Squamous Epith Cells Urine Glucose Direct Antiglob Test 01/01/17 01/01/17 01/01/17 11:28 14:10 16:35 WBC RBC RBC (Retic) Hgb Hct HCT (Retic) MCV MCH MCHC RDW Plt Count MPV Immature Gran % (Auto) Neut % (Auto) Lymph % (Auto) [place] % (Auto) Eos % (Auto) Baso % (Auto) Absolute Neuts (auto) Absolute Lymphs (auto) Absolute Monos (auto) Absolute Eos (auto) Absolute Basos (auto) Absolute Nucleated RBC Neutrophils % Lymphocytes % Monocytes % Eosinophils % Myelocytes % Nucleated RBC % Normal RBC Morphology Hypochromasia Retic Count, Calc Corrected Retic Count Retic Shift Factor Retic Production Index Immature Retic Fraction Mean Retic Volume Haptoglobin Hem Pathologist Commnt INR (Anticoag Therapy) Sodium Potassium Chloride Carbon Dioxide Anion Gap BUN Creatinine Est GFR ( Amer) Est GFR (Non-Af Amer) BUN/Creatinine Ratio Glucose POC Glucose (mg/dL) 280 H 304 H Lactic Acid Calcium Total Bilirubin Direct Bilirubin Indirect Bilirubin AST ALT Alkaline Phosphatase Ammonia Lactate Dehydrogenase C-Reactive Protein Total Protein Albumin Globulin Albumin/Globulin Ratio Lipase Urine Color Yellow Urine Appearance Clear Urine pH 7.0 Ur Specific [place] 1.010 Urine Protein Negative Urine Ketones Negative Urine Blood 1+ H Urine Nitrate Negative Urine Bilirubin Negative Urine Urobilinogen Positive H Ur Leukocyte Esterase Negative Urine RBC (Auto) Trace(0-2/hpf) Ur Squamous Epith Cells Present H Urine Glucose Negative Direct Antiglob Test Assess/Plan/Problems-Billing Assessment: Patient is a 71yo female with a PMH significant for ROSA with cirrhosis, portal hypertension, hepatic encephalopathy, variceal bleeding with a TIPS procedure and chronic anemia who presented yesterday with AMS and medication noncompliance. - Patient Problems (1) Hepatic encephalopathy Current Visit: Yes Status: Acute Code(s): K72.90 - HEPATIC FAILURE, UNSPECIFIED WITHOUT COMA SNOMED Code(s): 89941702 Comment: Patient much improved upon resumption of home medications. Patient had one small bowel movement today after the lactulose. Patient continues to have nausea after taking lactulose. (2) Cirrhosis of liver not due to alcohol Current Visit: Yes Status: Acute Comment: Patient's disease stable in outpatient care, AST only moderately elevated, ALT normal. Albumin low at 2.4, no signs of variceal bleeding. Ascites present without pain or complication. Continue home nadalol, lasix, and spironolactone. (3) Nausea & vomiting Current Visit: Yes Status: Acute Code(s): R11.2 - NAUSEA WITH VOMITING, UNSPECIFIED SNOMED Code(s): 56775570 Comment: Reglan ordered in addition to zofran before lactulose administration. (4) Anemia Current Visit: Yes Status: Acute Code(s): D64.9 - ANEMIA, UNSPECIFIED SNOMED Code(s): 193285758 Comment: All signs point to hemolytic anemia. Possibly due to TIPS procedure. Patient's Hemoglobin moderately below baseline, asymptomatic. Hematology consulted. Will transfuse as needed. (5) Diabetes type 2, controlled Current Visit: Yes Status: Acute Code(s): E11.9 - TYPE 2 DIABETES MELLITUS WITHOUT COMPLICATIONS SNOMED Code(s): 19480758 Comment: Moderately well controlled on SSI. Will adjust long acting insulin up if hyperglycemia persists. Status and Disposition: Patient is admitted inpatient and will be discharged back to [facility] if able to control nausea form lactulose.
[2017-01-01] MEDS: Oxybutynin TAB* 5 MG PO SCH (21:32)
[2017-01-01] MEDS: Insulin GLARGINE(*) 1 UNITS UNIT SUBCUT SCH (21:33)
[2017-01-02 05:49] LABS: Corrected Retic Count 2.5 % (0.5-1.5); Hematocrit 20 % (35-47); Hemoglobin 6.9 g/dl (12.0-16.0); Immature Retic Fraction 0.58; Mean Corpuscular HGB Conc 35 g/dl (31-36); Mean Corpuscular Hemoglobin 34 pg (27-31); Mean Corpuscular Volume 96 fL (80-97); Mean Platelet Volume 8 um3 (7.4-10.4); Red Blood Count 2.05 10^6/ul (4.0-5.4); Red Cell Distribution Width 25 % (10.5-15); White Blood Count 3.9 10^3/ul (3.5-10.8)
[2017-01-02 06:04] LABS: Albumin 2.1 g/dL (3.2-5.2); BUN/Creatinine Ratio 19.5 (8-20); Calcium 8.5 mg/dL (8.6-10.3); EGFR African American 88.9 (>60); EGFR Non-African American 69.1 (>60); Globulin 4.7 g/dL (2-4); Potassium 3.4 mmol/L (3.5-5.0); Total Bilirubin 6.3 mg/dL (0.2-1.0); Total Protein 6.8 g/dL (6.4-8.9)
[2017-01-02 06:14] LABS: Comments Flag Yes
[2017-01-02 06:15] LABS: Add Diff/Slide Review? Manual Diff Added
[2017-01-02 06:56] LABS: Eosinophils % 3 % (0-6); Immature Granulocytes 1 % (0-9); Myelocytes % 1 % (0-1); Neutrophil % 75 % (38-83)
[2017-01-02 06:58] LABS: Add Path Review? YES
[2017-01-02 07:56] LABS: Direct Bilirubin 1.6 mg/dL (0.03-0.18); Globulin 4.5 g/dL (2-4); Indirect Bilirubin 4.4 mg/dL (0.3-1.0); Total Protein 6.5 g/dL (6.4-8.9)
[2017-01-02] MEDS: Nadolol TAB* 40 MG PO SCH (09:13)
[2017-01-02] MEDS: Omeprazole CAP* 20 MG PO SCH (09:13)
[2017-01-02] MEDS: Multivitamins/Minerals TAB PO SCH (09:13)
[2017-01-02] MEDS: Spironolactone TAB* 25 MG PO SCH (09:13)
[2017-01-02] MEDS: Folic Acid TAB* 1 MG PO SCH (09:13)
[2017-01-02] MEDS: Ferrous Gluconate TAB* 324 MG TAB PO SCH ×2 (09:13→20:45)
[2017-01-02] MEDS: RiFAXimin* 550 MG TAB PO SCH ×2 (09:13→20:45)
[2017-01-02] MEDS: Insulin LISPRO* 1 UNITS UNIT SUBCUT SCH ×3 (09:14→17:41)
[2017-01-02] MEDS: Furosemide IV* 10 MG/ML VIAL (40 MG) IV SLOW PU SCH (09:15)
[2017-01-02] MEDS: Potassium Chlor TAB* 20 MEQ TAB.ER PO SCH ×2 (10:54→12:37)
[2017-01-02] MEDS ORDERED: Insulin GLARGINE(*) 1 UNITS UNIT SUBCUT ONE (11:46)
[2017-01-02] MEDS: Simethicone TAB* 80 MG TAB.CHEW PO PRN ×2 (12:37→20:45)
[2017-01-02 15:02] LABS: Hematocrit 21 % (35-47); Hemoglobin 7.1 g/dl (12.0-16.0); Mean Corpuscular HGB Conc 34 g/dl (31-36); Mean Corpuscular Hemoglobin 33 pg (27-31); Mean Corpuscular Volume 98 fL (80-97); Mean Platelet Volume 8 um3 (7.4-10.4); Red Blood Count 2.13 10^6/ul (4.0-5.4); Red Cell Distribution Width 25 % (10.5-15); White Blood Count 3.8 10^3/ul (3.5-10.8)
[2017-01-02 15:09] LABS: Add Diff/Slide Review? Manual Diff Added; Comments Flag Yes
--- NOTE | 2017-01-02 15:15 | CONS ---
CC: Dr. Simpson; Dr. Hoover of Gastroenterology, [facility]; Dr. Flores, GI, [facility] * MEDICAL ONCOLOGY/HEMATOLOGY CONSULTATION NOTE: DATE OF CONSULT: 01/01/17 - ROOM #406 REASON FOR CONSULTATION: Altered mental status, cirrhosis, and hemolytic anemia. HISTORY OF PRESENT ILLNESS: Ms. Mckee is a 71-year-old female with a history of ROSA (nonalcoholic steatohepatitis). She has also had longstanding history of cirrhosis, hypertension, varices and GI bleeds. She has had all of her care , until just the last several months, when living in the [facility]. She recently moved in [facility] in September of this year. She reports esophageal varices having been discovered in 2012 that required banding. In November 2016, that she had an EGD, which showed no significant varices at that point. She was found back in 2006 to have an enlarged spleen along with liver disease and platelet count at that point at 50,000 to 70,000. She was seen in consultation by hematology in [place] and was felt it was secondary to cirrhosis and no further hematologic workup was recommended. Her spleen has continued to be enlarged over that entire period of time over the past decade. About 5 years ago, she did have a GI bleed. No source was found, although it could very well have been the esophageal varices. Things worsened this spring and summer. She had an episode when she presented to the emergency room here, was found to have a very significant bleed, was started on octreotide drip and given blood here in the ambulance and then at [facility] in [place], [place]. Workup ensued and on 11/14/16, a TIPS procedure was performed. She reports that she has continued to require transfusions both when at [facility] and here with a total of approximately 16 units of packed red blood cells since the spring in approximately 8 single donor platelet packs over that same period of time. She has required several paracenteses, but only one since having had the TIPS procedure. Up to 8 L has been removed on each occasion and she reports one time when the ascitic fluid was bloody, otherwise not. Most recent transfusions on 12/11/16, when she had 2 units of packed red blood cells for hemoglobin of approximately 6. She reports her lowest hemoglobin that she is aware of this year was 5.8. The patient has been on rifaximin, lactulose as well as diuretics with the Lasix and spironolactone. However, she did stop taking her rifaximin and her lactulose over a period of either several days to potentially even 1 to 2 weeks. She presented to the emergency room acting very confused and lethargic. She actually reports that she thought she was going to . She continued taking her other medications. She was found to have an ammonia level of 74, and on admission her H and H were 25/8.3 and have fallen somewhat since that period of time to currently being 20 and 7.2. There has been some concern about a brass polisher here in [place], Dr. Hoover, that she could be having hemolytic anemia. On hospital day #2 when she was seen, she is now feeling somewhat better, not having any shortness of breath or chest pain, is ambulating well and feeling much less confused. She denies any melena or bright red blood per rectum or other signs of bleeding. PAST MEDICAL HISTORY: 1. ROSA with cirrhosis 2. Portal hypertension with previous variocele bleeds and esophageal varices. 3. Diabetes mellitus. 4. Aortic stenosis. 5. Hyperlipidemia. 6. Status post TIPS procedure recently. 7. Status post laparoscopic cholecystectomy. 8. Status post variocele banding. MEDICATIONS: Prior to admission: 1. Rifaximin 550 mg b.i.d., but not taking. 2. Lactulose up to 4 times per day but again not taking. 3. Imodium 2 mg p.o. p.r.n. 4. Lantus 30 units at bedtime. 5. Short acting insulin 5 to 10 units t.i.d. on a sliding scale. 6. Lasix 80 mg daily. 7. Aldactone 100 mg daily. 8. Omeprazole 20 daily. 9. Nadolol 20 mg daily. 10. Multivitamin. 11. Detrol 2 mg at bedtime. 12. Simethicone 125 mg q. 6 hours p.r.n. 13. Ferrous gluconate with folic acid B12 and vitamin C in a single pill. ALLERGIES: None. INTOLERANCES: Gemfibrozil and lisinopril. FAMILY HISTORY: No history of anemia, cirrhosis. No AR or CVA. SOCIAL HISTORY: Denies any significant alcohol or drinking in the past. She recently had moved to [facility] from being previously in [place], [place]. Her has Alzheimer's and she was supposed to be the caregiver, but actually is only receiving more help than actually care giving recently. Surrogate decision maker is her daughter. REVIEW OF SYSTEMS: Weight has been down approximately 60 pounds recently with resolution of ascites, although she reports she is only down about 40 pounds from her baseline. Appetite has been fair. No short of breath, chest pain, or palpitations. No significant abdominal pain. No significant nausea or vomiting. No significant change in bowel habits other than loose stools when she got her lactulose. No bright red blood or melena. Denies any neurologic complaints. Review of systems otherwise negative except as discussed above. PHYSICAL EXAMINATION: A 71-year-old female in no acute distress. Vital Signs: Blood pressure 138/48, pulse 63, afebrile. HEENT: PERRL. EOMI. No scleral icterus. Neck: Supple. No cervical, supraclavicular, or axillary adenopathy. Lungs: Clear. Heart: Regular rate and rhythm without murmurs, rubs, or gallops. Abdomen: Soft, nontender without masses or organomegaly. Very slight fluid wave is felt with a small amount of ascites. Extremities: A 2+ pitting edema bilaterally. Neurologic: The patient is alert and oriented x3. Cranial nerves II through XII are intact. Motor is at least 4+/5 to 5-/5 throughout. LABORATORY STUDIES: CBC on admission, H and H of 24/8.3, platelet count of 52, 000, white count of 4200; on 01/01 was 20/7.2; platelet count 42; and white count 3500. Platelets have been in the 40,000 to 50,000 range since she first moved to [facility] in early this summer. Chemistry studies, sodium 133, potassium 4.0, chloride 101, bicarb 27, BUN 22, creatinine 0.87, glucose 268, total bilirubin 7.4 and on recheck total bilirubin 6.1 with a 4.2 indirect and 1.9 direct. Ammonia level is 74 and on repeat after resuming her medications it is now down to 35. LDH is elevated at 365 with an upper limit of normal with 271, albumin is 2.4, haptoglobin is undetectable at less than 14. Review of peripheral smear reveals occasional schistocytes; in addition, normochromic anemia, rare comet cells and rare teardrops are noted. IMPRESSION: A 71-year-old female with underlying nonalcoholic steatohepatitis with known portal hypertension, splenomegaly, varicole bleeds. She has had massive ascites recently which has been much better as has her overall condition since placement of TIPS. Since this period of time, she however has continued to be significantly anemic thus continued to require packed red blood cells with a total of about 16 units including 2 units since the TIPS procedure. 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 Her retic count is likely elevated, but clearly is unable to be calculated due to lab error. On the reticulocyte laboratory study, she is reported to have an H and H of 60/20, which then gives a falsely elevated total retic count and corrected retic count. Accordingly, this will be repeated to get some sense of it. The blood bank has shown a negative direct Yamel test. Certainly one can get a nonautoimmune mechanical hemolytic anemia related to a TIPS procedure. This oftentimes will happen in the first couple of weeks after placement. Fortunately, it typically it only lasts 2 to 3 months in a majority of subjects. It is unclear as to why the resolution. There is no specific treatment for this. It is not a steroid-responsive autoimmune hemolytic anemia. Treatment with transfusions as needed is the major treatment modality. The patient will get a CBC done every week and to follow this along she would be treated for significant drops in her H and H, development of increased symptoms, and also needs to be on the lookout for high output heart failure with this. One would hope that within the next 1 to 2 months symptoms improve, as the hemolytic anemia hopefully resolves. 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 If for the next several months her symptoms worsen, her thrombocytopenia worsens, or hemolytic anemia does not start to resolve, further workup may be in order. Given the fact that a few teardrops were seen in the peripheral smear, a bone marrow biopsy will then be in order at that time. [id number]/[facility] #: [id number] [facility]
[2017-01-02 15:23] LABS: BUN/Creatinine Ratio 19.5 (8-20); Calcium 8.8 mg/dL (8.6-10.3); EGFR African American 95.6 (>60); EGFR Non-African American 74.3 (>60); Potassium 3.6 mmol/L (3.5-5.0)
--- NOTE | 2017-01-02 19:16 | PN ---
Subjective Date of Service: 01/02/17 Interval History: Patient has no new complaints overnight. Patient threw up twice in the evening significantly after lactulose dosing. Antiemetics moderately helpful. No dizziness or lightheadedness, no CP, SOB, Abdominal Pain, constipation, increased swelling in legs. Patient had several normal colored formed stools. Talked with Dr Pederson and he says ok to discharge and to monitor weekly CBCs outpatient and to follow up with Hematology within a month. Family History: Unchanged from Admission Social History: Unchanged from Admission Past Medical History: Unchanged from Admission Objective Active Medications: Dextrose (D50w Syringe 50 Ml*) 12.5 gm IV PUSH .FOR FS < 60 - SS PRN PRN Reason: FS < 60 Ferrous Gluconate (Fergon Tab*) 324 mg PO BID [facility] Last Admin: 01/02/17 09:13 Dose: 324 mg Folic Acid (Folvite Tab*) 1 mg PO DAILY [facility] Last Admin: 01/02/17 09:13 Dose: 1 mg Furosemide (Lasix Tab*) 80 mg PO DAILY [facility] Influenza Virus Vaccine (Fluarix *Quad* *) 0.5 ml IM .ONCE ONE Stop: 01/03/17 09:01 Insulin Glargine (Lantus(*)) 40 units SUBCUT BEDTIME [facility] Insulin Human Lispro (Humalog*) 0 units SUBCUT AC [facility] PRN Reason: Protocol Last Admin: 01/02/17 17:41 Dose: 6 units Lactulose (Lactulose*) 30 ml PO BID [facility] Last Admin: 01/02/17 09:13 Dose: 30 ml Metoclopramide HCl (Reglan Iv*) 5 mg IV Q6H PRN PRN Reason: NAUSEA/VOMITING Last Admin: 01/01/17 16:09 Dose: 5 mg Multivitamins/Minerals (Theragran/Minerals Tab*) 1 tab PO DAILY [facility] Last Admin: 01/02/17 09:13 Dose: 1 tab Nadolol (Corgard Tab*) 40 mg PO DAILY [facility] Last Admin: 01/02/17 09:13 Dose: 40 mg Omeprazole (Prilosec Cap*) 20 mg PO DAILY [facility] Last Admin: 01/02/17 09:13 Dose: 20 mg Ondansetron HCl (Zofran Inj*) 4 mg IV Q6H PRN PRN Reason: NAUSEA Last Admin: 01/01/17 12:05 Dose: 4 mg Oxybutynin Chloride (Ditropan Tab*) 5 mg PO BEDTIME [facility] PRN Reason: Protocol Last Admin: 01/01/17 21:32 Dose: 5 mg Rifaximin (Xifaxan*) 550 mg PO BID [facility] Last Admin: 01/02/17 09:13 Dose: 550 mg Simethicone (Mylicon*) 80 mg PO BID PRN PRN Reason: INDIGESTION Last Admin: 01/02/17 12:37 Dose: 80 mg Spironolactone (Aldactone Tab*) 100 mg PO DAILY [facility] Last Admin: 01/02/17 09:13 Dose: 100 mg Vital Signs 01/01/17 01/01/17 01/01/17 19:32 21:57 23:24 Temperature 98.6 F 98.0 F Pulse Rate 66 67 Respiratory 16 16 13 Rate Blood Pressure 128/35 123/32 (mmHg) O2 Sat by Pulse 98 95 Oximetry 01/02/17 01/02/17 01/02/17 03:56 08:08 08:20 Temperature 98.1 F 98.0 F Pulse Rate 66 70 70 Respiratory 14 22 22 Rate Blood Pressure 124/27 112/36 112/42 (mmHg) O2 Sat by Pulse 99 96 96 Oximetry 01/02/17 01/02/17 15:39 17:13 Temperature 98.1 F Pulse Rate 62 Respiratory 18 Rate Blood Pressure 113/36 (mmHg) O2 Sat by Pulse 96 96 Oximetry Oxygen Devices in Use Now: None Eyes: No Scleral Icterus, PERRLA Ears/Nose/Mouth/Throat: Mucous Membranes Moist, - - Jaundice visible on palate. Neck: NL Appearance and Movements; NL JVP, Trachea Midline Respiratory: Symmetrical Chest Expansion and Respiratory Effort, Clear to Auscultation Cardiovascular: NL Sounds; No Murmurs; No JVD, RRR, - - 2+ pitting edema in B/L lower extremities. Pulses 2+ in Radial, PT, DP. Abdominal: - - Nondistended, possible ascetic fluid. dull to percussion. Enlarged liver, spleen not palpated. Lymphatic: No Cervical Adenopathy Skin: No Rash or Ulcers, No Nodules or Sclerosis Neurological: Alert and Oriented x 3, NL Gait, - - CN II-XII grossly intact. Result Diagrams: 01/02/17 14:42 01/02/17 14:45 Additional Lab and Data: Lab Results 12/31/16 12/31/16 12/31/16 Range/Units 13:56 13:56 13:56 WBC (3.5-10.8) 10^3/ul RBC (4.0-5.4) 10^6/ul RBC (Retic) (4.6-6.2) 10^6/ul Hgb (12.0-16.0) g/dl Hct (35-47) % HCT (Retic) (35-47) % MCV (80-97) fL MCH (27-31) pg MCHC (31-36) g/dl RDW (10.5-15) % Plt Count (150-450) 10^3/ul MPV (7.4-10.4) um3 Immature Gran % (Auto) (0-9) % Neut % (Auto) (38-83) % Lymph % (Auto) (25-47) % [place] % (Auto) (1-9) % Eos % (Auto) (0-6) % Baso % (Auto) (0-2) % Absolute Neuts (auto) (1.5-7.7) 10^3/ul Absolute Lymphs (auto) (1.0-4.8) 10^3/ul Absolute Monos (auto) (0-0.8) 10^3/ul Absolute Eos (auto) (0-0.6) 10^3/ul Absolute Basos (auto) (0-0.2) 10^3/ul Absolute Nucleated RBC 10^3/ul Neutrophils % (38-83) % Lymphocytes % (25-47) % Monocytes % (0-13) % Eosinophils % (0-6) % Myelocytes % (0-1) % Nucleated RBC % Normal RBC Morphology Hypochromasia Retic Count, Calc (0.5-1.5) % Corrected Retic Count (0.5-1.5) % Retic Shift Factor Retic Production Index Immature Retic Fraction Mean Retic Volume Hem Pathologist Commnt INR (Anticoag Therapy) 1.29 H (0.89-1.11) Sodium 133 (133-145) mmol/L Potassium 4.0 (3.5-5.0) mmol/L Chloride 101 (101-111) mmol/L Carbon Dioxide 27 (22-32) mmol/L Anion Gap 5 (2-11) mmol/L BUN 22 (6-24) mg/dL Creatinine 0.87 (0.51-0.95) mg/dL Est GFR ( Amer) 83.0 (>60) Est GFR (Non-Af Amer) 64.6 (>60) BUN/Creatinine Ratio 25.3 H (8-20) Glucose 268 H (70-100) mg/dL Lactic Acid (0.5-2.0) mmol/L Calcium 9.0 (8.6-10.3) mg/dL Total Bilirubin 7.40 H (0.2-1.0) mg/dL AST 42 H (13-39) U/L ALT 15 (7-52) U/L Alkaline Phosphatase 104 (34-104) U/L Ammonia 74 H (16-53) mol/L Lactate Dehydrogenase Pending C-Reactive Protein 21.87 H (< 5.00) mg/L Total Protein 7.9 (6.4-8.9) g/dL Albumin 2.4 L (3.2-5.2) g/dL Globulin 5.5 H (2-4) g/dL Albumin/Globulin Ratio 0.4 L (1-3) Lipase 16 (11.0-82.0) U/L 12/31/16 12/31/16 Range/Units 13:56 13:56 WBC 4.2 (3.5-10.8) 10^3/ul RBC 2.48 L (4.0-5.4) 10^6/ul RBC (Retic) 6.18 (4.6-6.2) 10^6/ul Hgb 8.3 L (12.0-16.0) g/dl Hct 24 L (35-47) % HCT (Retic) 60 H (35-47) % MCV 96 (80-97) fL MCH 34 H (27-31) pg MCHC 35 (31-36) g/dl RDW 25 H (10.5-15) % Plt Count 52 L (150-450) 10^3/ul MPV 8 (7.4-10.4) um3 Immature Gran % (Auto) 1 (0-9) % Neut % (Auto) 79.3 (38-83) % Lymph % (Auto) 11.5 L (25-47) % [place] % (Auto) 3.1 (1-9) % Eos % (Auto) 5.8 (0-6) % Baso % (Auto) 0.3 (0-2) % Absolute Neuts (auto) 3.5 (1.5-7.7) 10^3/ul Absolute Lymphs (auto) 0.2 L (1.0-4.8) 10^3/ul Absolute Monos (auto) 0.1 (0-0.8) 10^3/ul Absolute Eos (auto) 0.3 (0-0.6) 10^3/ul Absolute Basos (auto) 0 (0-0.2) 10^3/ul Absolute Nucleated RBC 0.12 10^3/ul Neutrophils % 84 H (38-83) % Lymphocytes % 5 L (25-47) % Monocytes % 2 (0-13) % Eosinophils % 8 H (0-6) % Myelocytes % 1 (0-1) % Nucleated RBC % 6.2 Normal RBC Morphology Not Reportable Hypochromasia 1+ Retic Count, Calc 7.2 H (0.5-1.5) % Corrected Retic Count 9.6 H (0.5-1.5) % Retic Shift Factor 1.0 Retic Production Index 9.60 Immature Retic Fraction 0.56 Mean Retic Volume 126.8 Hem Pathologist Commnt Pending INR (Anticoag Therapy) (0.89-1.11) Sodium (133-145) mmol/L Potassium (3.5-5.0) mmol/L Chloride (101-111) mmol/L Carbon Dioxide (22-32) mmol/L Anion Gap (2-11) mmol/L BUN (6-24) mg/dL Creatinine (0.51-0.95) mg/dL Est GFR ( Amer) (>60) Est GFR (Non-Af Amer) (>60) BUN/Creatinine Ratio (8-20) Glucose (70-100) mg/dL Lactic Acid 1.9 (0.5-2.0) mmol/L Calcium (8.6-10.3) mg/dL Total Bilirubin (0.2-1.0) mg/dL AST (13-39) U/L ALT (7-52) U/L Alkaline Phosphatase (34-104) U/L Ammonia (16-53) mol/L Lactate Dehydrogenase C-Reactive Protein (< 5.00) mg/L Total Protein (6.4-8.9) g/dL Albumin (3.2-5.2) g/dL Globulin (2-4) g/dL Albumin/Globulin Ratio (1-3) Lipase (11.0-82.0) U/L 12/31/16 12/31/16 12/31/16 13:56 13:56 13:56 WBC RBC RBC (Retic) Hgb Hct HCT (Retic) MCV MCH MCHC RDW Plt Count MPV Immature Gran % (Auto) Neut % (Auto) Lymph % (Auto) [place] % (Auto) Eos % (Auto) Baso % (Auto) Absolute Neuts (auto) Absolute Lymphs (auto) Absolute Monos (auto) Absolute Eos (auto) Absolute Basos (auto) Absolute Nucleated RBC Neutrophils % Lymphocytes % Monocytes % Eosinophils % Myelocytes % Nucleated RBC % Normal RBC Morphology Hypochromasia Retic Count, Calc Corrected Retic Count Retic Shift Factor Retic Production Index Immature Retic Fraction Mean Retic Volume Haptoglobin Hem Pathologist Commnt INR (Anticoag Therapy) 1.29 H Sodium 133 Potassium 4.0 Chloride 101 Carbon Dioxide 27 Anion Gap 5 BUN 22 Creatinine 0.87 Est GFR ( Amer) 83.0 Est GFR (Non-Af Amer) 64.6 BUN/Creatinine Ratio 25.3 H Glucose 268 H POC Glucose (mg/dL) Lactic Acid Calcium 9.0 Total Bilirubin 7.40 H Direct Bilirubin Indirect Bilirubin AST 42 H ALT 15 Alkaline Phosphatase 104 Ammonia 74 H Lactate Dehydrogenase 365 H C-Reactive Protein 21.87 H Total Protein 7.9 Albumin 2.4 L Globulin 5.5 H Albumin/Globulin Ratio 0.4 L Lipase 16 Urine Color Urine Appearance Urine pH Ur Specific [place] Urine Protein Urine Ketones Urine Blood Urine Nitrate Urine Bilirubin Urine Urobilinogen Ur Leukocyte Esterase Urine RBC (Auto) Ur Squamous Epith Cells Urine Glucose Direct Antiglob Test 12/31/16 12/31/16 12/31/16 13:56 13:56 13:56 WBC 4.2 RBC 2.48 L RBC (Retic) 6.18 Hgb 8.3 L Hct 24 L HCT (Retic) 60 H MCV 96 MCH 34 H MCHC 35 RDW 25 H Plt Count 52 L MPV 8 Immature Gran % (Auto) 1 Neut % (Auto) 79.3 Lymph % (Auto) 11.5 L [place] % (Auto) 3.1 Eos % (Auto) 5.8 Baso % (Auto) 0.3 Absolute Neuts (auto) 3.5 Absolute Lymphs (auto) 0.2 L Absolute Monos (auto) 0.1 Absolute Eos (auto) 0.3 Absolute Basos (auto) 0 Absolute Nucleated RBC 0.12 Neutrophils % 84 H Lymphocytes % 5 L Monocytes % 2 Eosinophils % 8 H Myelocytes % 1 Nucleated RBC % 6.2 Normal RBC Morphology Not Reportable Hypochromasia 1+ Retic Count, Calc 7.2 H Corrected Retic Count 9.6 H Retic Shift Factor 1.0 Retic Production Index 9.60 Immature Retic Fraction 0.56 Mean Retic Volume 126.8 Haptoglobin <14 L Hem Pathologist Commnt INR (Anticoag Therapy) Sodium Potassium Chloride Carbon Dioxide Anion Gap BUN Creatinine Est GFR ( Amer) Est GFR (Non-Af Amer) BUN/Creatinine Ratio Glucose POC Glucose (mg/dL) Lactic Acid 1.9 Calcium Total Bilirubin Direct Bilirubin Indirect Bilirubin AST ALT Alkaline Phosphatase Ammonia Lactate Dehydrogenase C-Reactive Protein Total Protein Albumin Globulin Albumin/Globulin Ratio Lipase Urine Color Urine Appearance Urine pH Ur Specific [place] Urine Protein Urine Ketones Urine Blood Urine Nitrate Urine Bilirubin Urine Urobilinogen Ur Leukocyte Esterase Urine RBC (Auto) Ur Squamous Epith Cells Urine Glucose Direct Antiglob Test 12/31/16 12/31/16 01/01/17 13:56 17:26 04:38 WBC 3.5 RBC 2.11 L RBC (Retic) Hgb 7.2 L Hct 20 L HCT (Retic) MCV 97 MCH 34 H MCHC 35 RDW 25 H Plt Count 42 L MPV 8 Immature Gran % (Auto) Neut % (Auto) Lymph % (Auto) [place] % (Auto) Eos % (Auto) Baso % (Auto) Absolute Neuts (auto) 2.5 Absolute Lymphs (auto) 0.4 L Absolute Monos (auto) 0.4 Absolute Eos (auto) 0.2 Absolute Basos (auto) 0 Absolute Nucleated RBC 0 Neutrophils % Lymphocytes % Monocytes % Eosinophils % Myelocytes % Nucleated RBC % Normal RBC Morphology Hypochromasia Retic Count, Calc Corrected Retic Count Retic Shift Factor Retic Production Index Immature Retic Fraction Mean Retic Volume Haptoglobin Hem Pathologist Commnt INR (Anticoag Therapy) Sodium Potassium Chloride Carbon Dioxide Anion Gap BUN Creatinine Est GFR ( Amer) Est GFR (Non-Af Amer) BUN/Creatinine Ratio Glucose POC Glucose (mg/dL) 313 H Lactic Acid Calcium Total Bilirubin Direct Bilirubin Indirect Bilirubin AST ALT Alkaline Phosphatase Ammonia Lactate Dehydrogenase C-Reactive Protein Total Protein Albumin Globulin Albumin/Globulin Ratio Lipase Urine Color Urine Appearance Urine pH Ur Specific [place] Urine Protein Urine Ketones Urine Blood Urine Nitrate Urine Bilirubin Urine Urobilinogen Ur Leukocyte Esterase Urine RBC (Auto) Ur Squamous Epith Cells Urine Glucose Direct Antiglob Test Negative 01/01/17 01/01/17 01/01/17 04:38 04:38 07:25 WBC RBC RBC (Retic) Hgb Hct HCT (Retic) MCV MCH MCHC RDW Plt Count MPV Immature Gran % (Auto) Neut % (Auto) Lymph % (Auto) [place] % (Auto) Eos % (Auto) Baso % (Auto) Absolute Neuts (auto) Absolute Lymphs (auto) Absolute Monos (auto) Absolute Eos (auto) Absolute Basos (auto) Absolute Nucleated RBC Neutrophils % Lymphocytes % Monocytes % Eosinophils % Myelocytes % Nucleated RBC % Normal RBC Morphology Hypochromasia Retic Count, Calc Corrected Retic Count Retic Shift Factor Retic Production Index Immature Retic Fraction Mean Retic Volume Haptoglobin Hem Pathologist Commnt INR (Anticoag Therapy) Sodium 138 Potassium 4.3 Chloride 104 Carbon Dioxide 29 Anion Gap 5 BUN 18 Creatinine 0.84 Est GFR ( Amer) 86.5 Est GFR (Non-Af Amer) 67.2 BUN/Creatinine Ratio 21.4 H Glucose 184 H POC Glucose (mg/dL) 163 H Lactic Acid Calcium 8.7 Total Bilirubin 6.10 H Direct Bilirubin 1.90 H Indirect Bilirubin 4.2 H AST ALT Alkaline Phosphatase Ammonia 35 Lactate Dehydrogenase C-Reactive Protein Total Protein Albumin Globulin Albumin/Globulin Ratio Lipase Urine Color Urine Appearance Urine pH Ur Specific [place] Urine Protein Urine Ketones Urine Blood Urine Nitrate Urine Bilirubin Urine Urobilinogen Ur Leukocyte Esterase Urine RBC (Auto) Ur Squamous Epith Cells Urine Glucose Direct Antiglob Test 01/01/17 01/01/17 01/01/17 11:28 14:10 16:35 WBC RBC RBC (Retic) Hgb Hct HCT (Retic) MCV MCH MCHC RDW Plt Count MPV Immature Gran % (Auto) Neut % (Auto) Lymph % (Auto) [place] % (Auto) Eos % (Auto) Baso % (Auto) Absolute Neuts (auto) Absolute Lymphs (auto) Absolute Monos (auto) Absolute Eos (auto) Absolute Basos (auto) Absolute Nucleated RBC Neutrophils % Lymphocytes % Monocytes % Eosinophils % Myelocytes % Nucleated RBC % Normal RBC Morphology Hypochromasia Retic Count, Calc Corrected Retic Count Retic Shift Factor Retic Production Index Immature Retic Fraction Mean Retic Volume Haptoglobin Hem Pathologist Commnt INR (Anticoag Therapy) Sodium Potassium Chloride Carbon Dioxide Anion Gap BUN Creatinine Est GFR ( Amer) Est GFR (Non-Af Amer) BUN/Creatinine Ratio Glucose POC Glucose (mg/dL) 280 H 304 H Lactic Acid Calcium Total Bilirubin Direct Bilirubin Indirect Bilirubin AST ALT Alkaline Phosphatase Ammonia Lactate Dehydrogenase C-Reactive Protein Total Protein Albumin Globulin Albumin/Globulin Ratio Lipase Urine Color Yellow Urine Appearance Clear Urine pH 7.0 Ur Specific [place] 1.010 Urine Protein Negative Urine Ketones Negative Urine Blood 1+ H Urine Nitrate Negative Urine Bilirubin Negative Urine Urobilinogen Positive H Ur Leukocyte Esterase Negative Urine RBC (Auto) Trace(0-2/hpf) Ur Squamous Epith Cells Present H Urine Glucose Negative Direct Antiglob Test 12/31/16 12/31/16 12/31/16 13:56 13:56 13:56 WBC RBC RBC (Retic) Hgb Hct HCT (Retic) MCV MCH MCHC RDW Plt Count MPV Immature Gran % (Auto) Neut % (Auto) Lymph % (Auto) [place] % (Auto) Eos % (Auto) Baso % (Auto) Absolute Neuts (auto) Absolute Lymphs (auto) Absolute Monos (auto) Absolute Eos (auto) Absolute Basos (auto) Absolute Nucleated RBC Neutrophils % Lymphocytes % Monocytes % Eosinophils % Myelocytes % Nucleated RBC % Normal RBC Morphology Hypochromasia Retic Count, Calc Corrected Retic Count Retic Shift Factor Retic Production Index Immature Retic Fraction Mean Retic Volume Haptoglobin Hem Pathologist Commnt INR (Anticoag Therapy) 1.29 H Sodium 133 Potassium 4.0 Chloride 101 Carbon Dioxide 27 Anion Gap 5 BUN 22 Creatinine 0.87 Est GFR ( Amer) 83.0 Est GFR (Non-Af Amer) 64.6 BUN/Creatinine Ratio 25.3 H Glucose 268 H POC Glucose (mg/dL) Lactic Acid Calcium 9.0 Total Bilirubin 7.40 H Direct Bilirubin Indirect Bilirubin AST 42 H ALT 15 Alkaline Phosphatase 104 Ammonia 74 H Lactate Dehydrogenase 365 H C-Reactive Protein 21.87 H Total Protein 7.9 Albumin 2.4 L Globulin 5.5 H Albumin/Globulin Ratio 0.4 L Lipase 16 Urine Color Urine Appearance Urine pH Ur Specific [place] Urine Protein Urine Ketones Urine Blood Urine Nitrate Urine Bilirubin Urine Urobilinogen Ur Leukocyte Esterase Urine RBC (Auto) Ur Squamous Epith Cells Urine Glucose Direct Antiglob Test 12/31/16 12/31/16 12/31/16 13:56 13:56 13:56 WBC 4.2 RBC 2.48 L RBC (Retic) 6.18 Hgb 8.3 L Hct 24 L HCT (Retic) 60 H MCV 96 MCH 34 H MCHC 35 RDW 25 H Plt Count 52 L MPV 8 Immature Gran % (Auto) 1 Neut % (Auto) 79.3 Lymph % (Auto) 11.5 L [place] % (Auto) 3.1 Eos % (Auto) 5.8 Baso % (Auto) 0.3 Absolute Neuts (auto) 3.5 Absolute Lymphs (auto) 0.2 L Absolute Monos (auto) 0.1 Absolute Eos (auto) 0.3 Absolute Basos (auto) 0 Absolute Nucleated RBC 0.12 Neutrophils % 84 H Lymphocytes % 5 L Monocytes % 2 Eosinophils % 8 H Myelocytes % 1 Nucleated RBC % 6.2 Normal RBC Morphology Not Reportable Hypochromasia 1+ Retic Count, Calc 7.2 H Corrected Retic Count 9.6 H Retic Shift Factor 1.0 Retic Production Index 9.60 Immature Retic Fraction 0.56 Mean Retic Volume 126.8 Haptoglobin <14 L Hem Pathologist Commnt INR (Anticoag Therapy) Sodium Potassium Chloride Carbon Dioxide Anion Gap BUN Creatinine Est GFR ( Amer) Est GFR (Non-Af Amer) BUN/Creatinine Ratio Glucose POC Glucose (mg/dL) Lactic Acid 1.9 Calcium Total Bilirubin Direct Bilirubin Indirect Bilirubin AST ALT Alkaline Phosphatase Ammonia Lactate Dehydrogenase C-Reactive Protein Total Protein Albumin Globulin Albumin/Globulin Ratio Lipase Urine Color Urine Appearance Urine pH Ur Specific [place] Urine Protein Urine Ketones Urine Blood Urine Nitrate Urine Bilirubin Urine Urobilinogen Ur Leukocyte Esterase Urine RBC (Auto) Ur Squamous Epith Cells Urine Glucose Direct Antiglob Test 12/31/16 12/31/16 01/01/17 13:56 17:26 04:38 WBC 3.5 RBC 2.11 L RBC (Retic) Hgb 7.2 L Hct 20 L HCT (Retic) MCV 97 MCH 34 H MCHC 35 RDW 25 H Plt Count 42 L MPV 8 Immature Gran % (Auto) Neut % (Auto) Lymph % (Auto) [place] % (Auto) Eos % (Auto) Baso % (Auto) Absolute Neuts (auto) 2.5 Absolute Lymphs (auto) 0.4 L Absolute Monos (auto) 0.4 Absolute Eos (auto) 0.2 Absolute Basos (auto) 0 Absolute Nucleated RBC 0 Neutrophils % Lymphocytes % Monocytes % Eosinophils % Myelocytes % Nucleated RBC % Normal RBC Morphology Hypochromasia Retic Count, Calc Corrected Retic Count Retic Shift Factor Retic Production Index Immature Retic Fraction Mean Retic Volume Haptoglobin Hem Pathologist Commnt INR (Anticoag Therapy) Sodium Potassium Chloride Carbon Dioxide Anion Gap BUN Creatinine Est GFR ( Amer) Est GFR (Non-Af Amer) BUN/Creatinine Ratio Glucose POC Glucose (mg/dL) 313 H Lactic Acid Calcium Total Bilirubin Direct Bilirubin Indirect Bilirubin AST ALT Alkaline Phosphatase Ammonia Lactate Dehydrogenase C-Reactive Protein Total Protein Albumin Globulin Albumin/Globulin Ratio Lipase Urine Color Urine Appearance Urine pH Ur Specific [place] Urine Protein Urine Ketones Urine Blood Urine Nitrate Urine Bilirubin Urine Urobilinogen Ur Leukocyte Esterase Urine RBC (Auto) Ur Squamous Epith Cells Urine Glucose Direct Antiglob Test Negative 01/01/17 01/01/17 01/01/17 04:38 04:38 07:25 WBC RBC RBC (Retic) Hgb Hct HCT (Retic) MCV MCH MCHC RDW Plt Count MPV Immature Gran % (Auto) Neut % (Auto) Lymph % (Auto) [place] % (Auto) Eos % (Auto) Baso % (Auto) Absolute Neuts (auto) Absolute Lymphs (auto) Absolute Monos (auto) Absolute Eos (auto) Absolute Basos (auto) Absolute Nucleated RBC Neutrophils % Lymphocytes % Monocytes % Eosinophils % Myelocytes % Nucleated RBC % Normal RBC Morphology Hypochromasia Retic Count, Calc Corrected Retic Count Retic Shift Factor Retic Production Index Immature Retic Fraction Mean Retic Volume Haptoglobin Hem Pathologist Commnt INR (Anticoag Therapy) Sodium 138 Potassium 4.3 Chloride 104 Carbon Dioxide 29 Anion Gap 5 BUN 18 Creatinine 0.84 Est GFR ( Amer) 86.5 Est GFR (Non-Af Amer) 67.2 BUN/Creatinine Ratio 21.4 H Glucose 184 H POC Glucose (mg/dL) 163 H Lactic Acid Calcium 8.7 Total Bilirubin 6.10 H Direct Bilirubin 1.90 H Indirect Bilirubin 4.2 H AST ALT Alkaline Phosphatase Ammonia 35 Lactate Dehydrogenase C-Reactive Protein Total Protein Albumin Globulin Albumin/Globulin Ratio Lipase Urine Color Urine Appearance Urine pH Ur Specific [place] Urine Protein Urine Ketones Urine Blood Urine Nitrate Urine Bilirubin Urine Urobilinogen Ur Leukocyte Esterase Urine RBC (Auto) Ur Squamous Epith Cells Urine Glucose Direct Antiglob Test 01/01/17 01/01/17 01/01/17 11:28 14:10 16:35 WBC RBC RBC (Retic) Hgb Hct HCT (Retic) MCV MCH MCHC RDW Plt Count MPV Immature Gran % (Auto) Neut % (Auto) Lymph % (Auto) [place] % (Auto) Eos % (Auto) Baso % (Auto) Absolute Neuts (auto) Absolute Lymphs (auto) Absolute Monos (auto) Absolute Eos (auto) Absolute Basos (auto) Absolute Nucleated RBC Neutrophils % Lymphocytes % Monocytes % Eosinophils % Myelocytes % Nucleated RBC % Normal RBC Morphology Hypochromasia Retic Count, Calc Corrected Retic Count Retic Shift Factor Retic Production Index Immature Retic Fraction Mean Retic Volume Haptoglobin Hem Pathologist Commnt INR (Anticoag Therapy) Sodium Potassium Chloride Carbon Dioxide Anion Gap BUN Creatinine Est GFR ( Amer) Est GFR (Non-Af Amer) BUN/Creatinine Ratio Glucose POC Glucose (mg/dL) 280 H 304 H Lactic Acid Calcium Total Bilirubin Direct Bilirubin Indirect Bilirubin AST ALT Alkaline Phosphatase Ammonia Lactate Dehydrogenase C-Reactive Protein Total Protein Albumin Globulin Albumin/Globulin Ratio Lipase Urine Color Yellow Urine Appearance Clear Urine pH 7.0 Ur Specific [place] 1.010 Urine Protein Negative Urine Ketones Negative Urine Blood 1+ H Urine Nitrate Negative Urine Bilirubin Negative Urine Urobilinogen Positive H Ur Leukocyte Esterase Negative Urine RBC (Auto) Trace(0-2/hpf) Ur Squamous Epith Cells Present H Urine Glucose Negative Direct Antiglob Test 01/02/17 01/02/17 01/02/17 05:15 05:15 07:20 WBC 3.9 RBC 2.05 L RBC (Retic) 2.05 L D Hgb 6.9 L Hct 20 L HCT (Retic) 20 L D MCV 96 MCH 34 H MCHC 35 RDW 25 H Plt Count 43 L MPV 8 Immature Gran % (Auto) 1 Neut % (Auto) Lymph % (Auto) [place] % (Auto) Eos % (Auto) Baso % (Auto) Absolute Neuts (auto) 2.9 Absolute Lymphs (auto) 0.4 L Absolute Monos (auto) 0.5 Absolute Eos (auto) 0.2 Absolute Basos (auto) 0 Absolute Nucleated RBC 0.01 Neutrophils % 75 Lymphocytes % 8 L Monocytes % 13 Eosinophils % 3 Myelocytes % 1 Nucleated RBC % Normal RBC Morphology Not Reportable Hypochromasia Retic Count, Calc 5.6 H Corrected Retic Count 2.5 H Retic Shift Factor 2.0 Retic Production Index 1.30 Immature Retic Fraction 0.58 Mean Retic Volume 126.3 Haptoglobin Hem Pathologist Commnt INR (Anticoag Therapy) Sodium 134 Potassium 3.4 L Chloride 99 L Carbon Dioxide 32 Anion Gap 3 BUN 16 Creatinine 0.82 Est GFR ( Amer) 88.9 Est GFR (Non-Af Amer) 69.1 BUN/Creatinine Ratio 19.5 Glucose 263 H POC Glucose (mg/dL) Lactic Acid Calcium 8.5 L Total Bilirubin 6.30 H 6.00 H Direct Bilirubin 1.60 H Indirect Bilirubin 4.4 H AST 38 36 ALT 15 14 Alkaline Phosphatase 86 82 Ammonia Lactate Dehydrogenase C-Reactive Protein Total Protein 6.8 6.5 Albumin 2.1 L 2.0 L Globulin 4.7 H 4.5 H Albumin/Globulin Ratio 0.4 L 0.4 L Lipase Urine Color Urine Appearance Urine pH Ur Specific [place] Urine Protein Urine Ketones Urine Blood Urine Nitrate Urine Bilirubin Urine Urobilinogen Ur Leukocyte Esterase Urine RBC (Auto) Ur Squamous Epith Cells Urine Glucose Direct Antiglob Test 01/02/17 01/02/17 01/02/17 07:55 12:06 14:42 WBC 3.8 RBC 2.13 L RBC (Retic) Hgb 7.1 L Hct 21 L HCT (Retic) MCV 98 H MCH 33 H MCHC 34 RDW 25 H Plt Count 46 L MPV 8 Immature Gran % (Auto) Neut % (Auto) Lymph % (Auto) [place] % (Auto) Eos % (Auto) Baso % (Auto) Absolute Neuts (auto) 2.8 Absolute Lymphs (auto) 0.4 L Absolute Monos (auto) 0.4 Absolute Eos (auto) 0.2 Absolute Basos (auto) 0 Absolute Nucleated RBC 0 Neutrophils % Lymphocytes % Monocytes % Eosinophils % Myelocytes % Nucleated RBC % Normal RBC Morphology Hypochromasia Retic Count, Calc Corrected Retic Count Retic Shift Factor Retic Production Index Immature Retic Fraction Mean Retic Volume Haptoglobin Hem Pathologist Commnt INR (Anticoag Therapy) Sodium Potassium Chloride Carbon Dioxide Anion Gap BUN Creatinine Est GFR ( Amer) Est GFR (Non-Af Amer) BUN/Creatinine Ratio Glucose POC Glucose (mg/dL) 233 H 356 H Lactic Acid Calcium Total Bilirubin Direct Bilirubin Indirect Bilirubin AST ALT Alkaline Phosphatase Ammonia Lactate Dehydrogenase C-Reactive Protein Total Protein Albumin Globulin Albumin/Globulin Ratio Lipase Urine Color Urine Appearance Urine pH Ur Specific [place] Urine Protein Urine Ketones Urine Blood Urine Nitrate Urine Bilirubin Urine Urobilinogen Ur Leukocyte Esterase Urine RBC (Auto) Ur Squamous Epith Cells Urine Glucose Direct Antiglob Test 01/02/17 01/02/17 14:45 17:02 WBC RBC RBC (Retic) Hgb Hct HCT (Retic) MCV MCH MCHC RDW Plt Count MPV Immature Gran % (Auto) Neut % (Auto) Lymph % (Auto) [place] % (Auto) Eos % (Auto) Baso % (Auto) Absolute Neuts (auto) Absolute Lymphs (auto) Absolute Monos (auto) Absolute Eos (auto) Absolute Basos (auto) Absolute Nucleated RBC Neutrophils % Lymphocytes % Monocytes % Eosinophils % Myelocytes % Nucleated RBC % Normal RBC Morphology Hypochromasia Retic Count, Calc Corrected Retic Count Retic Shift Factor Retic Production Index Immature Retic Fraction Mean Retic Volume Haptoglobin Hem Pathologist Commnt INR (Anticoag Therapy) Sodium 134 Potassium 3.6 Chloride 99 L Carbon Dioxide 34 H Anion Gap 1 L BUN 15 Creatinine 0.77 Est GFR ( Amer) 95.6 Est GFR (Non-Af Amer) 74.3 BUN/Creatinine Ratio 19.5 Glucose 253 H POC Glucose (mg/dL) 270 H Lactic Acid Calcium 8.8 Total Bilirubin Direct Bilirubin Indirect Bilirubin AST ALT Alkaline Phosphatase Ammonia Lactate Dehydrogenase C-Reactive Protein Total Protein Albumin Globulin Albumin/Globulin Ratio Lipase Urine Color Urine Appearance Urine pH Ur Specific [place] Urine Protein Urine Ketones Urine Blood Urine Nitrate Urine Bilirubin Urine Urobilinogen Ur Leukocyte Esterase Urine RBC (Auto) Ur Squamous Epith Cells Urine Glucose Direct Antiglob Test Assess/Plan/Problems-Billing Assessment: Patient is a 71yo female with a PMH significant for ROAS with cirrhosis, portal hypertension, hepatic encephalopathy, variceal bleeding with a TIPS procedure and chronic anemia who was admitted with hepatic encephalopathy due to medication noncompliance which has now resolved. Patient should be able to discharge in morning. - Patient Problems (1) Hepatic encephalopathy Current Visit: Yes Status: Acute Code(s): K72.90 - HEPATIC FAILURE, UNSPECIFIED WITHOUT COMA SNOMED Code(s): 11542092 Comment: Patient much improved upon resumption of home medications. Patient had several small formed bowel movements.. Patient continues to have nausea, but was temporally unrelated to lactulose.. (2) Cirrhosis of liver not due to alcohol Current Visit: Yes Status: Acute Comment: Patient's disease stable in outpatient care, AST only moderately elevated, ALT normal. Albumin low at 2.4, no signs of variceal bleeding. Ascites present without pain or complication. Continue home nadalol and spironolactone. Held Lasix today due to hypokalemia. Restarted on home dose for morning. (3) Nausea & vomiting Current Visit: Yes Status: Acute Code(s): R11.2 - NAUSEA WITH VOMITING, UNSPECIFIED SNOMED Code(s): 24630207 Comment: Reglan ordered in addition to zofran before lactulose administration. No difference noted after administration and not repeated today. (4) Anemia Current Visit: No Status: Acute Code(s): D64.9 - ANEMIA, UNSPECIFIED SNOMED Code(s): 455352238 Comment: Dr Pederson believes this is due to TIPS procedure and that this usually self resolve after several months. Started on Folic acid supplementation. Recheck CBC in morning and weekly as outpatient. Should follow up with Hematology/ Oncology within a month. Transfuse only for symtoms and Hemoglobin under 6. (5) Diabetes type 2, controlled Current Visit: No Status: Acute Code(s): E11.9 - TYPE 2 DIABETES MELLITUS WITHOUT COMPLICATIONS SNOMED Code(s): 10856029 Comment: Patient states her home dose of Lantus is 40mg. Increased with extra 10u today and increased to 40 for tomorrow. Relatively uncontrolled on SSI. Status and Disposition: Patient is admitted inpatient and will be discharged back to [facility] for help with medications and diabetes control.
[2017-01-02] MEDS: Oxybutynin TAB* 5 MG PO SCH (20:49)
[2017-01-02] MEDS ORDERED: Insulin GLARGINE(*) 1 UNITS UNIT SUBCUT SCH (21:00)
[2017-01-03 06:38] LABS: Hematocrit 19 % (35-47); Hemoglobin 6.5 g/dl (12.0-16.0); Mean Corpuscular HGB Conc 35 g/dl (31-36); Mean Corpuscular Hemoglobin 34 pg (27-31); Mean Corpuscular Volume 97 fL (80-97); Mean Platelet Volume 8 um3 (7.4-10.4); Red Blood Count 1.91 10^6/ul (4.0-5.4); White Blood Count 4.3 10^3/ul (3.5-10.8)
[2017-01-03 06:41] LABS: Add Diff/Slide Review? Manual Diff Added; Comments Flag Yes
[2017-01-03 06:42] LABS: Red Cell Distribution Width 26 % (10.5-15)
[2017-01-03 06:54] LABS: Albumin 1.9 g/dL (3.2-5.2); BUN/Creatinine Ratio 24.7 (8-20); Calcium 8.5 mg/dL (8.6-10.3); EGFR African American 101.7 (>60); Globulin 4.5 g/dL (2-4); Potassium 4.2 mmol/L (3.5-5.0); Total Protein 6.4 g/dL (6.4-8.9)
[2017-01-03 07:31] LABS: Eosinophils % 4 % (0-6); Neutrophil % 79 % (38-83)
[2017-01-03 07:33] LABS: Add Path Review? YES; Polychromasia 1+
[2017-01-03] MEDS: Insulin LISPRO* 1 UNITS UNIT SUBCUT SCH ×2 (08:53→13:13)
[2017-01-03] MEDS: Spironolactone TAB* 25 MG PO SCH (08:55)
[2017-01-03] MEDS: Ferrous Gluconate TAB* 324 MG TAB PO SCH (08:55)
[2017-01-03] MEDS: Nadolol TAB* 40 MG PO SCH (08:55)
[2017-01-03] MEDS: RiFAXimin* 550 MG TAB PO SCH (08:55)
[2017-01-03] MEDS: Folic Acid TAB* 1 MG PO SCH (08:55)
[2017-01-03] MEDS: Omeprazole CAP* 20 MG PO SCH (08:55)
[2017-01-03] MEDS: Multivitamins/Minerals TAB PO SCH (08:55)
[2017-01-03] MEDS ORDERED: Furosemide TAB* 40 MG PO SCH ×2 (09:00)
[2017-01-03] MEDS ORDERED: Influenza VAC *QUAD* 2017-18* 0.5 ML SYRINGE IM ONE (09:00)
[2017-01-03] MEDS: Simethicone TAB* 80 MG TAB.CHEW PO PRN (10:33)
--- NOTE | 2017-01-03 11:27 | DS ---
CC: Dr. Simpson; Dr. Pederson; Yani* DATE OF ADMISSION: 12/31/2016. DATE OF DISCHARGE: 01/03/2017. PRIMARY CARE PROVIDER: Dr. Simpson. CONSULTING AIDS NURSE: Dr. Pederson. DISCHARGING PROVIDER: NIKO Patterson. SUPERVISING PHYSICIAN: Dr. Pamela Mejia* (dictated by NIKO Patterson). PRIMARY DISCHARGE DIAGNOSES: 1. Hepatic encephalopathy, likely secondary to medication indiscretion. 2. 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 SECONDARY DISCHARGE DIAGNOSES: 1. 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 2. Chronic thrombocytopenia. 3. Insulin dependent diabetes. 4. History of variceal bleeding, status post TIPS 11/14/2016. DISCHARGE MEDICATIONS: 1. Lasix 80 mg p.o. daily. 2. NovoLog on a sliding scale with use of 5 to 10 units subcu at mealtime. 3. Lantus 40 units subcu daily. 4. Lactulose 30 ml p.o. twice daily. 5. Loperamide 2 mg p.o. daily. 6. Multivitamin one tablet p.o. daily. 7. Nadolol 40 mg p.o. daily. 8. Nitroglycerin 0.4 mg sublingual q.5 minutes prn chest pain. 9. Omeprazole 20 mg p.o. daily. 10. Zofran 4 mg p.o. q.4 hours as needed for nausea and vomiting. 11. Xifaxan 550 mg p.o. twice daily. 12. Simethicone 125 mg p.o. q.6 hours as needed for bloating. 13. Spironolactone 100 mg p.o. daily. 14. Detrol 2 mg p.o. at bedtime. Medication changes: 1. Resume Lactulose and Xifaxan. 2. Increase Lantus to 40 units. 3. Start Zofran prn. HOSPITAL IMAGING: CT of the brain shows no evidence of gross acute infarct, mass effect, or hemorrhage. HOSPITAL COURSE: This is a 71-year-old female with cirrhosis secondary to ROSA and known associated hepatic encephalopathy with a history of variceal bleeding , status post TIPS procedure in early November 2016 who presented to the emergency department with concerns for altered mental status. The patient discontinued her Lactulose and Xifaxan several days prior to her hospital admission for unclear reasons. At the time of initial evaluation, ammonia levels were elevated. The patient appeared to be confused. No evidence of severe ascites. Her total bilirubin was also noted to be well above baseline at 7 at the time of admission. She was also noted to be anemic with a hemoglobin of 8.3, the last measured at 9.0 approximately five days prior. The patient was subsequently admitted for hepatic encephalopathy. She was restarted on her prior home medications, including Lactulose and Xifaxan. Her mental status cleared back to baseline. She underwent consultation with Hematology due to the presence of her anemia and specific concerns for whether this represented a hemolytic anemia. On peripheral smear she did have schistocytes present. Her haptoglobin was low, total bili up over baseline and a negative direct Yamel. The patient had required multiple transfusions. Hematology felt that this is likely consistent with a hemolytic anemia, perhaps secondary to her recent TIPS procedure and suggested that this is generally a self-limited process and treatment would be transfusion as necessary. The patient was not symptomatic related to her anemia. Hemoglobin was 8.3 at the time of admission and 6.5 at the time of discharge. DISPOSITION AND FOLLOW-UP PLAN: The patient is being discharged to [facility]. She is generally in the independent living side with her at [facility]. Her home medications are listed above. She requires a CBC and a basic metabolic panel one week from discharge and then weekly CBC's to follow. Transfusion should be considered for a hemoglobin of less than 6 or if she develops symptoms of anemia, but is asymptomatic at this time with a hemoglobin of 6.5. She should follow-up with physician loc[facility] urgent care Dr. Pederson in approximately four weeks time and her primary care provider, Dr. Simpson, in the next few days. The patient should continue Lactulose and Xifaxan as described above. NIKO PATTERSON [id number]/[facility] #: [id number] [facility] HOSPITALMohamud
[2017-01-03 13:07] VITALS: BP 118/40
[2017-01-04] MEDS ORDERED: Influenza VAC *QUAD* 2017-18* 0.5 ML SYRINGE IM ONE (09:00)
== END 2017-01-03 14:15 | DRG 442 ==
LOC: ED 12:57 → MED 15:01 → OBSVTOIN 01-01 15:00 → INTOOBSV 01-02 10:11
PROVIDERS: ADMIT Internal Medicine; ATTEND Internal Medicine
DX: K72.90 Hepatic failure, unspecified without coma (principal); I85.10 Secondary esophageal varices without bleeding; K76.6 Portal hypertension; D59.4 Other nonautoimmune hemolytic anemias; E11.9 Type 2 diabetes mellitus without complications; D73.1 Hypersplenism; D69.59 Other secondary thrombocytopenia; E78.5 Hyperlipidemia, unspecified; K75.81 Nonalcoholic steatohepatitis (NASH); R11.2 Nausea with vomiting, unspecified; K74.60 Unspecified cirrhosis of liver; I35.0 Nonrheumatic aortic (valve) stenosis; Z90.49 Acquired absence of other specified parts of digestive tract; Z91.14 Patient's other noncompliance with medication regimen; Z88.8 Allergy status to other drugs, medicaments and biological substances; Z87.891 Personal history of nicotine dependence; Z79.4 Long term (current) use of insulin
CPT/HCPCS: 36415; 70450; 80048; 80053; 80076; 81003; 81015; 82140; 82247; 82248; 83010; 83605; 83615; 83690; 85025; 85045; 85060; 85610; 86140; 86880; 87086; 90686; A9270-GY; G0378; J1940; J2405; J2765

== ENCOUNTER 2017-01-13 10:38 | Inpatient (IN) | payer MEDICARE, OTHER ==
--- NOTE | 2017-01-13 12:23 | RAD ---
HISTORY: Weakness and confusion COMPARISONS: None VIEWS: 1: frontal portable view of the chest at 12:00 PM FINDINGS: LINES AND TUBES: None. CARDIOMEDIASTINAL SILHOUETTE: The cardiomediastinal silhouette is normal for portable technique. PLEURA: There is blunting of the right costophrenic angle LUNG PARENCHYMA: There is confluent alveolar opacification of the right lung base ABDOMEN: The upper abdomen is clear. There is no subphrenic gas. BONES AND SOFT TISSUES: No bone or soft tissue abnormalities are noted. IMPRESSION: RIGHT LOWER LUNG CONSOLIDATION WITH A SMALL RIGHT PLEURAL EFFUSION. RECOMMEND FOLLOW-UP UNTIL RESOLUTION TO EXCLUDE UNDERLYING PULMONARY PARENCHYMAL PATHOLOGY
[2017-01-13 12:25] LABS: Hematocrit 22 % (35-47); Hemoglobin 7.6 g/dl (12.0-16.0); Mean Corpuscular HGB Conc 35 g/dl (31-36); Mean Corpuscular Hemoglobin 36 pg (27-31); Mean Corpuscular Volume 102 fL (80-97); Mean Platelet Volume 9 um3 (7.4-10.4); Red Blood Count 2.12 10^6/ul (4.0-5.4); Red Cell Distribution Width 26 % (10.5-15)
[2017-01-13 12:29] LABS: Add Diff/Slide Review? Manual Diff Added; Comments Flag Yes
[2017-01-13 12:40] LABS: Albumin 2.3 g/dL (3.2-5.2); BUN/Creatinine Ratio 24.6 (8-20); Calcium 9.3 mg/dL (8.6-10.3); EGFR African American 56.2 (>60); EGFR Non-African American 43.7 (>60); Globulin 5.4 g/dL (2-4); Total Protein 7.7 g/dL (6.4-8.9)
[2017-01-13 12:42] LABS: Troponin I 0.03 ng/mL (<0.04)
[2017-01-13 12:43] LABS: Urine Bilirubin Negative (Negative); Urine Glucose Negative (Negative); Urine Nitrite Negative (Negative)
[2017-01-13 12:47] LABS: Eosinophils % 6 % (0-6); Neutrophil % 81 % (38-83)
[2017-01-13 12:48] LABS: Macrocytosis 1+
[2017-01-13 12:49] LABS: Add Path Review? YES
[2017-01-13] MEDS ORDERED: Ondansetron INJ* 2 MG/ML VIAL IV PRN (14:27)
[2017-01-13] MEDS ORDERED: Acetaminophen TAB* 325 MG PO PRN (14:27)
[2017-01-13] MEDS ORDERED: Dextrose 50% Syringe 50 ML* 25 GM/50 ML SYRINGE IV PUSH PRN (14:33)
[2017-01-13] MEDS ORDERED: Simethicone TAB* 80 MG TAB.CHEW PO PRN (14:34)
[2017-01-13] MEDS: Insulin LISPRO* 1 UNITS UNIT SUBCUT SCH (17:59)
[2017-01-13] MEDS: Oxybutynin TAB* 5 MG PO SCH (20:32)
[2017-01-13] MEDS: RiFAXimin* 550 MG TAB PO SCH (20:40)
[2017-01-13] MEDS: Insulin GLARGINE(*) 1 UNITS UNIT SUBCUT SCH (20:40)
--- NOTE | 2017-01-13 23:21 | HP ---
CC: Dr. Simpson * HISTORY AND PHYSICAL: DATE OF ADMISSION: 01/13/17 PRIMARY CARE PROVIDER: Dr. Simpson. ATTENDING PHYSICIAN WHILE IN THE HOSPITAL: Dimitry Mcdonough MD * (report dictated by Miesha Gonzalez NP) CHIEF COMPLAINT: 1. Altered mental status. 2. Weakness. HISTORY OF PRESENT ILLNESS: Ms. Mckee is a 71-year-old female patient who is just here for discharge on 01/03/17, was found to have hemolytic anemia. In addition to this, thought secondary to be related to her TIPS procedure, also found to have hepatic encephalopathy. She missed lactulose prior to this and was restarted and she did well and was discharged. The family states that she has been doing well at [facility], and she has been following closely with Dr. Simpson. They have been managing her diabetes quite closely secondary to ROSA and they have been monitoring her cirrhosis and keeping her on her lactulose and she has been taking it. Unfortunately though in the last couple of days, they have noticed that she has had progressive worsening weakness. Her family has noticed, the patient has noticed this and she has been a little bit more confused and had difficulty with finding words, which is typical when she has her hepatic encephalopathy. There have been no reports of fevers, chills. No coughing. No more vomiting. There is minimal abdominal discomfort. No diarrhea. She has had loose stools on the lactulose but they reduced the dose to 15 cc 4 times a day and she has been taking that. There have been no reports of chest pain again or coughing or any upper respiratory symptoms. They are concerned though because of the progressive worsening weakness. She denied any abdominal pain and no vomiting. She came in to the ED, was evaluated. There was concern for hepatic encephalopathy again. We were asked to evaluate for admission. PAST MEDICAL HISTORY: Significant for: 1. Cirrhosis. 2. ROSA. 3. Portal hypertension. 4. History of GI bleed. 5. Esophageal varices. 6. Diabetes. 7. Aortic stenosis. 8. Hyperlipidemia. 9. Hemolytic anemia. PAST SURGICAL HISTORY: 1. She has had a TIPS procedure. 2. . 3. Variceal banding. 4. Laparoscopic cholecystectomy. MEDICATIONS: The home meds according to the list provided include: 1. Lactulose 15 cc p.o. 4 times a day. 2. Detrol 2 mg p.o. b.i.d. 3. Aldactone 100 mg p.o. daily. 4. Simethicone 125 mg p.o. every 6 hours as needed. 5. Rifaximin 550 mg p.o. b.i.d. 6. Zofran 4 mg p.o. every 4 hours as needed. 7. Prilosec 20 mg p.o. daily. 8. Nitro 0.4 mg sublingual q.5 minutes p.r.n. chest pain. 9. Corgard 40 mg p.o. daily. 10. Multivitamin 1 tablet daily. 11. Imodium 2 tablets p.o. daily as needed. 12. Lantus 50 units subcu at bedtime. 13. Insulin aspart sliding scale. 14. Dulcolax suppository 10 mg p.r. as directed, as needed. 15. Tylenol 650 mg every 6 hours as needed. 16. Demadex 40 mg daily. 17. Nitro 0.4 mg sublingual q.5 minutes p.r.n. chest pain. 18. Milk of mag 30 cc p.o. take as directed, as needed. ALLERGIES: Allergies to medication included lisinopril and gemfibrozil. FAMILY HISTORY: Mother had a history of CVA. Father's history is reviewed, noncontributory. Specifically denied any member having any cirrhosis. SOCIAL HISTORY: She does not smoke. She does not drink. She resides in [facility]. Surrogate decision makers are her daughter and her . REVIEW OF SYSTEMS: There is no documented fever. There is no weight change. No double vision. No ear discharge. There was no rhinorrhea, no sore throat, no thyroid enlargement. She denied having any chest pain. There was no orthopnea. No nocturnal dyspnea. There was no abdominal pain. No nausea. No vomiting. No dysuria. No frequency. There was no seizure. No loss of consciousness. No pruritus. No skin ulcerations. Review of 14 systems completed, all others negative. PHYSICAL EXAMINATION GENERAL: At this time, Ms. Mckee is a 71-year-old female patient. She appears to be well nourished, well developed. She does not appear to be in acute distress. She is sitting on the ED stretcher. VITAL SIGNS: Blood pressure 107/41, pulse 57, respirations 18, O2 sat 98%, temperature 98.2. HEENT: Head: Atraumatic, normocephalic. Eyes: EOMs intact. Sclerae anicteric, not pale. Throat: Oral mucosa appears to be moist. No oropharyngeal erythema. NECK: Supple. HEART: Heart sounds S1, S2. Regular rate and rhythm. She does have a grade 2/ 3 aortic murmur. ABDOMEN: Soft, flat, nontender. Bowel sounds are present. She had no ascites. EXTREMITIES: Pulses are 2+. She has 2+ pitting edema bilaterally. NEUROLOGIC: She is awake. She is alert. She is oriented x3. Speech to me is clear, but it is delayed. She appears to be a little bit drowsy. She had no gross focal deficits. SKIN: Grossly intact. LABORATORY DATA/DIAGNOSTIC STUDIES: The labs today revealed a WBC of 5.0, RBC of 2.12, hemoglobin of 7.6, hematocrit of 22, platelet count of 56. She had a sodium of 131, potassium of 4, chloride of 97, bicarb 28, BUN 30, and creatinine 1.22, up from her baseline of 0.7. The glucose was 242, the lactate 1.9. Calcium 9.3. Total bili 8, AST 42, ALT 20, alk phos 100. Ammonia 78. Troponin 0.03. Albumin of 2.3. Urine was negative. There was a chest x-ray obtained today, which revealed right lower lobe consolidation with small right pleural effusion. Recommend followup until resolution to exclude underlying pulmonary parenchymal pathology. She had an EKG obtained today as well, which revealed sinus bradycardia, rate of 58, no ST elevations or T wave inversions. Old medical records were noted. ASSESSMENT AND PLAN: Ms. Mckee is a 71-year-old female patient with a complex medical history, coming in today with complaints of altered mental status and weakness. She will be admitted under observation status for: 1. Altered mental status. Again, I question if this is related to her hepatic encephalopathy. Again, her ammonia is 78. She certainly does appear to be drowsy on exam and sometimes lethargic, but does awake and follow commands appropriately. I think I am going to go ahead and increase her lactulose to 30 cc t.i.d., which will be essentially giving her an extra dose and I will be following her ammonia tomorrow. Her CT brain, she had one just a few weeks ago , so I am not going to repeat that for the time being and we will continue to follow. 2. Weakness. Again, this could be symptomatic anemia. H and H is slightly low. I am going to try to give her 1 unit of blood to see how she responds with this and we will continue to monitor. We will check her H and H. 3. Hepatic encephalopathy. Again, this may be a tip off, she was having a couple nosebleeds this week. It is a possibility she may have an underlying viral infection. I do note that her x-ray does show consolidation, but she has no respiratory symptoms, no white count, no fevers, so I am not inclined to give antibiotics. At this point, I am inclined to monitor her, check a flu swab and panculture and see if anything else presents itself. If she does spike a fever, then obviously we will start antibiotics. 4. History of cirrhosis with nonalcoholic steatohepatitis, portal hypertension , and esophageal varices. We will go ahead and continue her meds as prescribed. She appears to be stable and she has no active bleeding currently. 5. Diabetes. We will start her on lispro sliding scale. 6. Aortic stenosis. She can follow with Dr. Simpson. 7. Hemolytic anemia. Again, she may have some symptomatic anemia. She was scheduled for 2 units. I am going to give her one, her H and H is 7.6, and see how she responds to this. We will repeat her H and H tomorrow. If we need to, we can always give her a second unit. 8. DVT prophylaxis: Again because of the low platelets and the low H and H, I am going to hold off on heparin but I will give her SCDs for now. 9. Fluids, electrolytes, and nutrition: She can have a low-protein diet. 10. Her code status, she does wish to be a full code. 11. Acute renal failure. This is probably related to the fact that she was recently switched over to Demadex. I am going to cut this down to 20 mg, give her a unit of blood and repeat the chemistries tomorrow. TIME SPENT: The time spent on the admission was approximately 60 minutes, greater than half the time spent [id number] with the patient obtaining my history and physical, other half time spent going over the plan of care with the patient and implementing plan of care. I did discuss the plan of care with my attending, Dr. Mcdonough. He is in agreement. MIESHA GONZALEZ NP [id number]/[facility] #: [id number] [place]
[2017-01-14 07:07] LABS: Hematocrit 25 % (35-47); Hemoglobin 8.8 g/dl (12.0-16.0); Mean Corpuscular HGB Conc 36 g/dl (31-36); Mean Corpuscular Hemoglobin 36 pg (27-31); Mean Corpuscular Volume 100 fL (80-97); Mean Platelet Volume 8 um3 (7.4-10.4); Red Blood Count 2.46 10^6/ul (4.0-5.4); Red Cell Distribution Width 24 % (10.5-15); White Blood Count 5.8 10^3/ul (3.5-10.8)
[2017-01-14 07:15] LABS: Add Diff/Slide Review? Manual Diff Added; Comments Flag Yes
[2017-01-14 07:37] LABS: BUN/Creatinine Ratio 22.5 (8-20); Calcium 9.2 mg/dL (8.6-10.3); EGFR African American 57.3 (>60); EGFR Non-African American 44.5 (>60); Potassium 3.9 mmol/L (3.5-5.0)
[2017-01-14] MEDS: Omeprazole CAP* 20 MG PO SCH (08:44)
[2017-01-14] MEDS: Spironolactone TAB* 25 MG PO SCH (08:44)
[2017-01-14] MEDS: Multivitamins/Minerals TAB PO SCH (08:44)
[2017-01-14] MEDS: RiFAXimin* 550 MG TAB PO SCH ×2 (08:44→20:57)
[2017-01-14] MEDS: Torsemide TAB* 20 MG PO SCH (08:44)
[2017-01-14] MEDS: Oxybutynin TAB* 5 MG PO SCH ×2 (08:44→20:57)
[2017-01-14] MEDS: Insulin LISPRO* 1 UNITS UNIT SUBCUT SCH ×3 (08:45→17:41)
[2017-01-14] MEDS: Nadolol TAB* 40 MG PO SCH (09:03)
--- NOTE | 2017-01-14 14:36 | PN ---
Subjective Date of Service: 01/14/17 Interval History: Patient seen and examined at bedside. Denies fever, chills, shortness of breath , chest discomfort, diarrhea. Pt states that she had an episode of vomiting that occurred about 2 hours after taking the Lactulose. The episode of vomiting started with belching. Ms. Mckee is unsure if she continues to be confused or not, she feels that staff asking her if she is confused, makes her confused. Reports an episode of epistaxis today. Family History: Unchanged from Admission Social History: Unchanged from Admission Past Medical History: Unchanged from Admission Objective Active Medications: Acetaminophen (Tylenol Tab*) 650 mg PO Q4H PRN Reason: FEVER/PAIN Dextrose (D50w Syringe 50 Ml*) 12.5 gm IV PUSH .FOR FS < 60 - SS PRN Reason: FS < 60 Insulin Glargine (Lantus(*)) 50 units SUBCUT BEDTIME SERG Insulin Human Lispro (Humalog*) 0 units SUBCUT AC SERG Lactulose (Lactulose*) 30 ml PO TID SERG Multivitamins/Minerals (Theragran/Minerals Tab*) 1 tab PO DAILY SERG Nadolol (Corgard Tab*) 40 mg PO DAILY SERG Omeprazole (Prilosec Cap*) 20 mg PO DAILY@0730 SERG Ondansetron HCl (Zofran Inj*) 4 mg IV Q6H PRN Reason: NAUSEA Oxybutynin Chloride (Ditropan Tab*) 5 mg PO BID [facility] Reason: Protocol Rifaximin (Xifaxan*) 550 mg PO BID SERG Simethicone (Mylicon Tab*) 125 mg PO Q6H PRN Reason: gas Spironolactone (Aldactone Tab*) 100 mg PO DAILY SERG Torsemide (Demadex*) 20 mg PO DAILY [facility] Vital Signs 01/13/17 01/13/17 01/13/17 15:17 19:52 23:20 Temperature 97.4 F 97.6 F Pulse Rate 59 57 Respiratory 16 18 Rate Blood Pressure 114/31 112/29 118/42 (mmHg) O2 Sat by Pulse 100 100 Oximetry 01/13/17 01/14/17 01/14/17 23:26 03:23 08:19 Temperature 98.1 F 98.0 F 98.2 F Pulse Rate 58 60 61 Respiratory 16 16 16 Rate Blood Pressure 97/29 120/47 110/34 (mmHg) O2 Sat by Pulse 100 100 100 Oximetry 01/14/17 11:42 Temperature 98.1 F Pulse Rate 57 Respiratory Rate Blood Pressure 125/48 (mmHg) O2 Sat by Pulse 99 Oximetry Oxygen Devices in Use Now: None Appearance: NAD, sitting up on the side of the bed Ears/Nose/Mouth/Throat: Mucous Membranes Moist Respiratory: Symmetrical Chest Expansion and Respiratory Effort, Clear to Auscultation Cardiovascular: RRR, - - Grade 2/3 systolic murmur heard best at the right upper sternal border. Abdominal: NL Sounds; No Tenderness; No Distention, - - No fluid wave Extremities: - - Trace to 1+ bilateral LE edema. Skin: No Rash or Ulcers Neurological: Alert and Oriented x 3, NL Muscle Strength and Tone Lines/Tubes/Other Access: Clean, Dry and Intact Peripheral IV - site benign Result Diagrams: 01/14/17 07:00 01/14/17 07:00 Microbiology and Other Data: Microbiology 01/13/17 14:40 Influenza Types A,B Antigen (PILAR) - Final Nasal Specimen received for Influenza A/B Molecular testing Assess/Plan/Problems-Billing Assessment: Ms. Mckee is a 71 yo female with PNH significant for ROSA, portal HTN, GI bleed , DM, , HL, hemolytic anemia, esophageal varicies who presented to the emergency room with AMS and weakness. - Patient Problems (1) Altered mental status Code(s): R41.82 - ALTERED MENTAL STATUS, UNSPECIFIED SNOMED Code(s): 746293195 Comment: - Suspect this may be related to hepatic encephalopathy - No signs of infection (influenza negative, UA negative, chest xray shows consolidation - but no other findings to suggest PNA) (2) Weakness Code(s): R53.1 - WEAKNESS SNOMED Code(s): 01735298 Comment: - Suspect may be secondary to anemia, improved after 1 unit RBCs - PT eval (3) Anemia Current Visit: No Status: Acute Code(s): D64.9 - ANEMIA, UNSPECIFIED SNOMED Code(s): 742652331 Comment: Dr Pederson believes this is due to TIPS procedure and that this usually self resolve after several months. Started on Folic acid supplementation. Recheck CBC in morning and weekly as outpatient. Should follow up with Hematology/ Oncology within a month. Transfuse only for symtoms and Hemoglobin under 6. (4) Hepatic encephalopathy Code(s): K72.90 - HEPATIC FAILURE, UNSPECIFIED WITHOUT COMA SNOMED Code(s): 03501021 Comment: - Ammonia 73 - Continue lactulose at increased dose (5) Cirrhosis of liver not due to alcohol Comment: - Patient's disease stable in outpatient care. - No ascites present, low suspicion for SBP (afebrile and no leukocytosis). - Continue home nadalol, spironolactone, and torsemide. (6) Diabetes type 2, uncontrolled Code(s): E11.65 - TYPE 2 DIABETES MELLITUS WITH HYPERGLYCEMIA SNOMED Code(s): 84526874 Comment: - Glucose 200-400's - HgA1C pending - Continue Lispro SS (7) DVT prophylaxis Code(s): UII2142 - SNOMED Code(s): 102236371 Comment: - SCDs (8) Full code status Code(s): Z78.9 - OTHER SPECIFIED HEALTH STATUS SNOMED Code(s): 083925280 Status and Disposition: OBV to Inpatient. Discharge to home when medically stable.
[2017-01-14] MEDS: Insulin GLARGINE(*) 1 UNITS UNIT SUBCUT SCH (20:57)
[2017-01-15 06:19] LABS: Hematocrit 23 % (35-47); Hemoglobin 7.9 g/dl (12.0-16.0); Mean Corpuscular HGB Conc 35 g/dl (31-36); Mean Corpuscular Hemoglobin 35 pg (27-31); Mean Corpuscular Volume 100 fL (80-97); Mean Platelet Volume 8 um3 (7.4-10.4); Red Blood Count 2.25 10^6/ul (4.0-5.4); Red Cell Distribution Width 24 % (10.5-15); White Blood Count 5.5 10^3/ul (3.5-10.8)
[2017-01-15 06:20] LABS: Add Diff/Slide Review? Manual Diff Added; Comments Flag Yes
[2017-01-15 06:29] LABS: BUN/Creatinine Ratio 23.4 (8-20); EGFR African American 65.4 (>60); EGFR Non-African American 50.8 (>60); Potassium 3.8 mmol/L (3.5-5.0)
[2017-01-15 07:00] LABS: Eosinophils % 3 % (0-6); Immature Granulocytes 2 % (0-9); Metamyelocytes % 1 % (0-2); Myelocytes % 1 % (0-1); Neutrophil % 74 % (38-83)
[2017-01-15 07:01] LABS: Macrocytosis 2+; Microcytosis 1+
[2017-01-15] MEDS: Torsemide TAB* 20 MG PO SCH (08:45)
[2017-01-15] MEDS: Multivitamins/Minerals TAB PO SCH (08:45)
[2017-01-15] MEDS: Oxybutynin TAB* 5 MG PO SCH ×2 (08:45→21:34)
[2017-01-15] MEDS: RiFAXimin* 550 MG TAB PO SCH ×2 (08:45→21:45)
[2017-01-15] MEDS: Nadolol TAB* 40 MG PO SCH (08:45)
[2017-01-15] MEDS: Omeprazole CAP* 20 MG PO SCH (08:45)
[2017-01-15] MEDS: Insulin LISPRO* 1 UNITS UNIT SUBCUT SCH ×4 (08:45→21:38)
[2017-01-15] MEDS: Spironolactone TAB* 25 MG PO SCH (08:46)
--- NOTE | 2017-01-15 13:59 | PN ---
Subjective Date of Service: 01/15/17 Interval History: Patient seen and examined at bedside. Denies fever, chills, shortness of breath , chest discomfort, N/V/D. Pt states that she is tolerating her lactulose today. Fells like her confusion is clearing, but is more tired today. Pt is more drowsy today, but is alert and oriented. Pt has only moved her bowels once today and 3 times total yesterday. Confirmed with Yani that pt was taking lactulose 15 ml AC and HS and Rifaximin 550 mg PO BID. Family History: Unchanged from Admission Social History: Unchanged from Admission Past Medical History: Unchanged from Admission Objective Active Medications: Acetaminophen (Tylenol Tab*) 650 mg PO Q4H PRN Reason: FEVER/PAIN Dextrose (D50w Syringe 50 Ml*) 12.5 gm IV PUSH .FOR FS < 60 - SS PRN Reason: FS < 60 Insulin Glargine (Lantus(*)) 50 units SUBCUT BEDTIME SERG Insulin Human Lispro (Humalog*) 0 units SUBCUT AC SERG Lactulose (Lactulose*) 30 ml PO TID [facility] Multivitamins/Minerals (Theragran/Minerals Tab*) 1 tab PO DAILY SERG Nadolol (Corgard Tab*) 40 mg PO DAILY SERG Omeprazole (Prilosec Cap*) 20 mg PO DAILY@0730 SERG Ondansetron HCl (Zofran Inj*) 4 mg IV Q6H PRN Reason: NAUSEA Oxybutynin Chloride (Ditropan Tab*) 5 mg PO BID [facility] Reason: Protocol Rifaximin (Xifaxan*) 550 mg PO BID SERG Simethicone (Mylicon Tab*) 125 mg PO Q6H PRN Reason: gas Spironolactone (Aldactone Tab*) 100 mg PO DAILY SERG Torsemide (Demadex*) 20 mg PO DAILY [facility] Vital Signs 01/14/17 01/14/17 01/15/17 21:51 23:40 03:16 Temperature 98.5 F Pulse Rate 55 57 Respiratory 19 16 18 Rate Blood Pressure 107/34 113/30 (mmHg) O2 Sat by Pulse 98 97 Oximetry 01/15/17 07:24 Temperature Pulse Rate 58 Respiratory 16 Rate Blood Pressure 112/37 (mmHg) O2 Sat by Pulse 94 Oximetry Oxygen Devices in Use Now: None Appearance: NAD, laying in bed Ears/Nose/Mouth/Throat: Mucous Membranes Moist Respiratory: Symmetrical Chest Expansion and Respiratory Effort, Clear to Auscultation Cardiovascular: NL Sounds; No Murmurs; No JVD, RRR Abdominal: NL Sounds; No Tenderness; No Distention, - - Small fluid wave noted Extremities: - - trace to 1+ bilateral LE edema Neurological: Alert and Oriented x 3, NL Muscle Strength and Tone Lines/Tubes/Other Access: Clean, Dry and Intact Peripheral IV - site benign Nutrition: Taking PO's Result Diagrams: 01/15/17 06:07 01/15/17 06:07 Microbiology and Other Data: Microbiology 01/13/17 14:40 Influenza Types A,B Antigen (PILAR) - Final Nasal Specimen received for Influenza A/B Molecular testing Assess/Plan/Problems-Billing Assessment: Ms. Mckee is a 71 yo female with PNH significant for ROSA, portal HTN, GI bleed , DM, , HLD, hemolytic anemia, esophageal varicies who presented to the emergency room with AMS and weakness. - Patient Problems (1) Altered mental status Code(s): R41.82 - ALTERED MENTAL STATUS, UNSPECIFIED SNOMED Code(s): 657420456 Comment: - Suspect this may be related to hepatic encephalopathy - No signs of infection (influenza negative, UA negative, chest xray shows consolidation - but no other findings to suggest PNA) - Will increase lactulose (2) Weakness Code(s): R53.1 - WEAKNESS SNOMED Code(s): 70205013 Comment: - Suspect may be secondary to anemia, improved after 1 unit RBCs - PT eval - No needs identified (3) Thrombocytopenia Code(s): D69.6 - THROMBOCYTOPENIA, UNSPECIFIED SNOMED Code(s): 762279072 Comment: - Suspect secondary to liver disease (4) Anemia Code(s): D64.9 - ANEMIA, UNSPECIFIED SNOMED Code(s): 661799915 Comment: - Macrocytic anemia - Dr Pederson believes this is due to TIPS procedure and that this usually self resolve after several months. - Should follow up with Hematology/Oncology within a month. - Transfuse only for symtoms and Hemoglobin under 6. (5) Hepatic encephalopathy Code(s): K72.90 - HEPATIC FAILURE, UNSPECIFIED WITHOUT COMA SNOMED Code(s): 50393173 Comment: - Ammonia 82 - Continue lactulose (will increased dose today) and Rifaximin (6) Cirrhosis of liver not due to alcohol Comment: - Patient's disease stable in outpatient care. - Small amount of ascites present, low suspicion for SBP (afebrile and no leukocytosis). - Continue home nadalol, spironolactone, and torsemide. (7) Diabetes type 2, uncontrolled Code(s): E11.65 - TYPE 2 DIABETES MELLITUS WITH HYPERGLYCEMIA SNOMED Code(s): 15596787 Comment: - Glucose 200-400's - HgA1C 5.9 - Continue Lispro SS and Lantus (8) DVT prophylaxis Code(s): WUJ2161 - SNOMED Code(s): 419707323 Comment: - SCDs (9) Full code status Code(s): Z78.9 - OTHER SPECIFIED HEALTH STATUS SNOMED Code(s): 640381731 Status and Disposition: Inpatient. Discharge to home when medically stable.
[2017-01-15] MEDS: Insulin GLARGINE(*) 1 UNITS UNIT SUBCUT SCH (21:37)
[2017-01-16 06:36] LABS: BUN/Creatinine Ratio 27.6 (8-20); Calcium 9.1 mg/dL (8.6-10.3); EGFR African American 72.4 (>60); EGFR Non-African American 56.3 (>60)
[2017-01-16 06:53] LABS: Hematocrit 22 % (35-47); Hemoglobin 7.5 g/dl (12.0-16.0); Mean Corpuscular HGB Conc 35 g/dl (31-36); Mean Corpuscular Hemoglobin 35 pg (27-31); Mean Corpuscular Volume 101 fL (80-97); Mean Platelet Volume 8 um3 (7.4-10.4); Red Blood Count 2.14 10^6/ul (4.0-5.4); Red Cell Distribution Width 24 % (10.5-15); White Blood Count 7.6 10^3/ul (3.5-10.8)
[2017-01-16 06:56] LABS: Add Diff/Slide Review? Manual Diff Added; Comments Flag Yes
[2017-01-16 07:39] LABS: Eosinophils % 4 % (0-6); Immature Granulocytes 1 % (0-9); Myelocytes % 1 % (0-1); Neutrophil % 84 % (38-83)
[2017-01-16 07:40] LABS: Add Path Review? YES; Macrocytosis 1+
[2017-01-16] MEDS: Insulin LISPRO* 1 UNITS UNIT SUBCUT SCH ×2 (08:17→12:23)
[2017-01-16] MEDS: Multivitamins/Minerals TAB PO SCH (09:17)
[2017-01-16] MEDS: Torsemide TAB* 20 MG PO SCH (09:17)
[2017-01-16] MEDS: Omeprazole CAP* 20 MG PO SCH (09:17)
[2017-01-16] MEDS: Oxybutynin TAB* 5 MG PO SCH (09:17)
[2017-01-16] MEDS: Spironolactone TAB* 25 MG PO SCH (09:18)
[2017-01-16] MEDS: RiFAXimin* 550 MG TAB PO SCH (09:18)
[2017-01-16] MEDS: Nadolol TAB* 40 MG PO SCH (09:22)
[2017-01-16 09:31] VITALS: BP 100/34
--- NOTE | 2017-01-16 12:52 | DCNOTE ---
Subjective Date of Service: 01/16/17 Interval History: Patient seen and examined at bedside. Patient states she feels stronger than when she came in. She states she is having 6-8 BM/day. She denies SOB/pain. Family History: Unchanged from Admission Social History: Unchanged from Admission Past Medical History: Unchanged from Admission Objective Active Medications: Acetaminophen (Tylenol Tab*) 650 mg PO Q4H PRN Insulin Glargine (Lantus(*)) 50 units SUBCUT BEDTIME SERG Insulin Human Lispro (Humalog*) 0 units SUBCUT ACHS SERG Lactulose (Lactulose*) 30 ml PO Q6H SERG Multivitamins/Minerals (Theragran/Minerals Tab*) 1 tab PO DAILY SERG Nadolol (Corgard Tab*) 40 mg PO DAILY SERG Omeprazole (Prilosec Cap*) 20 mg PO DAILY@0730 SERG Ondansetron HCl (Zofran Inj*) 4 mg IV Q6H PRN Oxybutynin Chloride (Ditropan Tab*) 5 mg PO BID SERG Rifaximin (Xifaxan*) 550 mg PO BID SERG Simethicone (Mylicon Tab*) 125 mg PO Q6H PRN Spironolactone (Aldactone Tab*) 100 mg PO DAILY SERG Torsemide (Demadex*) 20 mg PO DAILY SERG 01/16/17 01/16/17 03:50 07:55 Temperature 97.7 F Pulse Rate 54 Respiratory 18 Rate Blood Pressure 100/34 (mmHg) O2 Sat by Pulse 98 98 Oximetry Oxygen Devices in Use Now: None Appearance: sitting up in bed, NAD Eyes: No Scleral Icterus, PERRLA Ears/Nose/Mouth/Throat: NL Teeth, Lips, Gums Neck: NL Appearance and Movements; NL JVP Respiratory: Symmetrical Chest Expansion and Respiratory Effort, Clear to Auscultation Cardiovascular: NL Sounds; No Murmurs; No JVD Abdominal: NL Sounds; No Tenderness; No Distention Extremities: - - 2+ edema Skin: No Rash or Ulcers Neurological: Alert and Oriented x 3, NL Muscle Strength and Tone Lines/Tubes/Other Access: Clean, Dry and Intact Peripheral IV Nutrition: Taking PO's Result Diagrams: 01/16/17 05:45 01/16/17 05:45 Assess/Plan/Problems-Billing Ms. Mckee is a 71 yo female with PNH significant for ROSA, portal HTN, GI bleed , DM, , HLD, hemolytic anemia, esophageal varicies who presented to the emergency room with AMS and weakness. - Patient Problems (1) Hepatic encephalopathy (2) Thrombocytopenia (3) Weakness (4) Anemia (5) Cirrhosis of liver not due to alcohol (6) Diabetes type 2, controlled (7) DVT prophylaxis (8) Full code status Status and Disposition: Stable to be discharged to [facility] today.
[2017-01-16 12:59] LABS: Albumin 2.1 g/dL (3.2-5.2); Direct Bilirubin 2.2 mg/dL (0.03-0.18); Globulin 4.8 g/dL (2-4); Indirect Bilirubin 3.9 mg/dL (0.3-1.0); Total Bilirubin 6.1 mg/dL (0.2-1.0); Total Protein 6.9 g/dL (6.4-8.9)
--- NOTE | 2017-01-16 14:09 | DS ---
CC: Dr. Simpson* DATE OF ADMISSION: 01/13/2017. DATE OF DISCHARGE: 01/16/2017. PRIMARY CARE PHYSICIAN: Dr. Simpson. ATTENDING PHYSICIAN: Dr. Jonny Em* (report dictated by Janine Sanchez NP). PRIMARY DIAGNOSES: 1. Hepatic encephalopathy. 2. Weakness secondary to hemolytic anemia. SECONDARY DIAGNOSES: 1. Cirrhosis secondary to nonalcoholic fatty liver disease. 2. Portal hypertension, status post TIPS. 3. Esophageal varices. 4. Hyperlipidemia. 5. Type 2 diabetes. STUDIES WHILE IN THE HOSPITAL: Chest x-ray, 01/13/2017: Right lower lung consolidation with a small right pleural effusion. Recommend follow-up until resolution to exclude underlying pulmonary parenchymal pathology. MEDICATIONS AT THE TIME OF DISCHARGE: Changed medications: 1. Lactulose 30 ml oral 4 times daily. 2. Demadex decrease to 20 mg oral daily. The following medications are all medications the patient came in on: 1. Multivitamin one tablet oral daily. 2. Aldactone 100 mg p.o. daily. 3. Simethicone 125 mg oral every 6 hours as needed. 4. Prilosec 20 mg oral daily. 5. NovoLog 5 to 10 units subcu 3 times daily. 6. Detrol 2 mg oral twice daily. 7. Nitro 0.4 sublingual every 5 minutes as needed. 8. Imodium 2 mg oral daily as needed. 9. Dulcolax 10 mg rectal as needed. 10. Tylenol 650 mg oral every 6 hours as needed. 11. Rifaximin 550 mg oral twice daily. 12. Nadolol 40 mg oral daily. 13. Milk of Magnesia 30 ml oral daily as needed for constipation. 14. Zofran 4 mg oral every 4 hours as needed. 15. Lantus 50 units subcu at bedtime. HISTORY OF PRESENT ILLNESS AND HOSPITAL COURSE: Ms. Mckee is a 71-year-old female who has a history of nonalcoholic fatty liver disease, who recently had a TIPS procedure and was admitted to our institution late in December for hemolytic anemia. She was discharged on January 03 to [facility]. The patient has been followed quite closely by Dr. Simpson. She was brought to the emergency room for progressive weakness as well as confusion. In the emergency room, she had a negative CAT scan of her brain. Her ammonia was elevated to 78, hence Lactulose was increased. It was felt that the altered mental status was secondary to the elevated ammonia level and on the day of discharge her ammonia level was back down into the 40s. In addition, her hemoglobin and hematocrit was slightly low. She was transfused a unit of blood. Most likely this is secondary to hemolytic anemia after her TIPS procedure. Recommendations from Hematology were to transfuse only for a hemoglobin less than 6. Other sources of infection were ruled out, although her x-ray did show consolidation. She did not have any respiratory symptoms or white count, so she was not given antibiotics. Flu swab was negative. On admission, her creatinine was slightly elevated and her Torsemide had been increased a few days prior. Torsemide was decreased to 20 mg and her creatinine normalized, came down from 1.2 to 0.9. Ammonia on admission was 78 and 49 on the day of discharge. Because of the titration of her Lactulose, her ammonia should be monitored frequently. Recommendations are for a complete metabolic panel and ammonia level on Saturday, January 21. She was transfused for her hemoglobin of 7.6. On the day of discharge, her hemoglobin remained stable at 7.5. Rifaximin was continued during her hospitalization. For her cirrhosis and history of esophageal varices, Nadolol and Spironolactone were continued. For her diabetes, Lantus was continued at home dose and the patient had a Lispro sliding scale to cover for elevated sugars. On 01/16/2017, vitals were as follows: Temperature 97.7, heart rate 54, respiratory rate 18, blood pressure 100/34, oxygen saturation 98 percent. At this point the patient is stable for discharge. DISCHARGE PLAN: The patient is discharge on a low sodium, consistent carb diet. The patient is activity as tolerated. The patient should be seen by Dr. Simpson within the next four to seven days. The patient should have follow-up lab work, including ammonia and CMP on 01/21/2017 with results called to Dr. Simpson. The patient should return to the hospital if she experiences any worsening confusion or weakness. I have reviewed all the instructions with the patient and she is agreeable with her discharge today. This is a summarized report of a complex medical history and hospital stay. For more details, please see the entire medical record. Time for this discharge was 60 minutes and over 35 minutes were spent with the patient discussing medications at discharge and follow-up instructions. CONDITION ON DISCHARGE: Stable. Reviewed by JANINE SANCHEZ NP 01/16/2017 [id number]/CPS #: [id number] MTDD
--- NOTE | 2017-01-18 13:12 | ED ---
Cynthia Livingston Edward, scribed for Uri Reeder MD on 01/13/17 at 1202 . Altered Mental Status - HPI Summary HPI Summary: 71 y/o female presents to the ED c/o acute on chronic weakness and AMS this morning, worsening in the past few days. The symptoms have been ongoing for 2 months. The symptoms are not aggravated or alleviated by anything. Associated sx : fatigue, mild confusion, JERRY last week that resolved with Tylenol, unsteadiness on feet, intermittent N/V/D, chills, pedal edema s/p TIPS procedure. One week ago the daughter reports that the patient was severely confused and disoriented. Denies CP. Pt lives at [facility]. PMHx anemia. Sx TIPS. Pt has a transfusion scheduled for tomorrow at [facility]. - History Of Current Complaint Chief Complaint: EDAltMentalStatus Stated Complaint: WEAKNESS & CONFUSION Hx Obtained From: Patient Hx Last Menstrual Period: n/a Timing: Lasting Weeks - Worsening in the past few days Character: Confusion, Lethargy Aggravating Factor(s): Nothing Alleviating Factor(s): Nothing Associated Signs And Symptoms: Positive: Nausea, Vomiting, Headache - One week ago, Weakness - Allergies/Home Medications Allergies/Adverse Reactions: Allergies Allergy/AdvReac Type Severity Reaction Status Date / Time Gemfibrozil Allergy Mild Unknown Verified 01/13/17 11:04 Reaction Details Lisinopril Allergy Mild Rash Verified 01/13/17 11:04 Home Medications: Home Medications Acetaminophen TAB* [Tylenol TAB*] 650 mg PO Q6HR PRN 01/13/17 [History Confirmed 01/13/17] Bisacodyl SUPP* [Dulcolax Supp*] 10 mg GA SEE INSTRUCTIONS PRN 01/13/17 [ History Confirmed 01/13/17] Insulin GLARGINE(*) [Lantus(*)] 50 units SUBCUT BEDTIME 01/13/17 [History Confirmed 01/13/17] Lactulose* 15 ml PO BID 01/13/17 [History Confirmed 01/13/17] Magnesium Hydroxide LIQ* [Milk of Magnesia LIQ*] 30 ml PO SEE INSTRUCTIONS PRN 01/13/17 [History Confirmed 01/13/17] Nadolol TAB* [Corgard TAB*] 40 mg PO DAILY 01/13/17 [History Confirmed 01/13/17] Nitroglycerin TAB 0.4 MG* 0.4 mg SL Q5M PRN 01/13/17 [History Confirmed 01/13/17 ] Ondansetron HCl [Zofran 4 MG TAB] 4 mg PO Q4H PRN 01/13/17 [History Confirmed ] RiFAXimin* [Xifaxan*] 550 mg PO BID 01/13/17 [History Confirmed 01/13/17] Torsemide TAB* [Demadex*] 40 mg PO DAILY 01/13/17 [History Confirmed 01/13/17] PMH/Surg Hx/FS Hx/Imm Hx Previously Healthy: No Endocrine/Hematology History: Reports: Hx Diabetes Cardiovascular History: Reports: Hx Hypertension GI History: Reports: Other GI Disorders - history of GI bleed, and esophageal bleed. fatty liver disease Sensory History: Reports: Hx Contacts or Glasses, Hx Hearing Aid, Hx Hearing Problem Denies: Hx Legally Blind, Hx Deafness Opthamlomology History: Reports: Hx Contacts or Glasses Denies: Hx Legally Blind - Surgical History Surgery Procedure, Year, and Place: TIPS Infectious Disease History: No Infectious Disease History: Denies: Traveled Outside the [place] in Last 30 Days - Family History Known Family History: Positive: Other - cancer, perforated bowel, alzheimers - Social History Alcohol Use: None Alcohol Amount: former- rare Hx Substance Use: No Substance Use Type: Reports: None Hx Tobacco Use: Yes Smoking Status (MU): Former Smoker Review of Systems Positive: Chills, Fatigue. Negative: Fever Negative: Erythema Negative: Sore Throat Negative: Chest Pain Negative: Shortness Of Breath, Cough Positive: Vomiting, Diarrhea, Nausea. Negative: Abdominal Pain Negative: dysuria, hematuria Positive: Edema - Bilateral pedal edema. Negative: Myalgia Negative: Rash Neurological: Other - Confusion, unsteady on feet Positive: Headache, Weakness All Other Systems Reviewed And Are Negative: Yes Physical Exam - Summary Physical Exam Summary: Constitutional: Well-developed, Well-nourished, Alert. (-) Distressed Skin: Warm, Dry, Jaundiced HENT: Normocephalic; Atraumatic Eyes: Conjunctiva normal. Dry oral mucosa Neck: Musculoskeletal ROM normal neck. (-) JVD, (-) Stridor, (-) Tracheal deviation Cardio: Rhythm regular, rate normal, Heart sounds normal; Intact distal pulses; The pedal pulses are 2+ and symmetric. Radial pulses are 2+ and symmetric. (-) Murmur Pulmonary/Chest wall: Effort normal. (-) Respiratory distress, (-) Wheezes, (-) Rales Abd: Soft, (-) Tenderness, (-) Distension, (-) Guarding, (-) Rebound Musculoskeletal: (-) Edema Lymph: (-) Cervical adenopathy Neuro: Alert, Oriented x3. Slow responses Psych: Mood and affect Normal Triage Information Reviewed: Yes Vital Signs On Initial Exam: Initial Vitals Temp Pulse Resp BP Pulse Ox 98.2 F 54 16 120/38 100 01/13/17 11:01 01/13/17 11:01 01/13/17 11:01 01/13/17 11:01 01/13/17 11:01 Vital Signs Reviewed: Yes - [place] Coma Scale Coma Scale Total: 15 Diagnostics - Vital Signs Vital Signs Temp Pulse Resp BP Pulse Ox 01/13/17 11:03 55 99 01/13/17 11:01 98.2 F 54 16 120/38 100 - Laboratory Result Diagrams: 01/13/17 12:15 01/13/17 12:15 Lab Statement: Any lab studies that have been ordered have been reviewed, and results considered in the medical decision making process. - Radiology CXR Xray Interpretation: Positive (See Comments) - RIGHT LOWER LUNG CONSOLIDATION WITH A SMALL RIGHT PLEURAL EFFUSION. RECOMMEND FOLLOW-UP UNTIL RESOLUTION TO EXCLUDE UNDERLYING PULMONARY PARENCHYMAL PATHOLOGY Radiology Interpretation Completed By: Radiologist - EKG 1 EKG Interpretation: 12:17 - Sinus Bradychardia @ 58 BPM. NO STEMI EKG Comparison: No Significant Change - 11/08/16 Altered Mental Statu Course/Dx - Course Assessment/Plan: 71 y/o female presents to the ED c/o acute on chronic weakness and AMS this morning, worsening in the past few days. The symptoms have been ongoing for 2 months. The symptoms are not aggravated or alleviated by anything. Associated sx: fatigue, mild confusion, JERRY last week that resolved with Tylenol, unsteadiness on feet, intermittent N/V/D, chills, pedal edema s/p TIPS procedure. One week ago the daughter reports that the patient was severely confused and disoriented. Denies CP. Pt lives at [facility]. PMHx anemia. Sx TIPS. Pt has a transfusion scheduled for tomorrow at [facility]. CXR SHOWS RIGHT LOWER LUNG CONSOLIDATION WITH A SMALL RIGHT PLEURAL EFFUSION. RECOMMEND FOLLOW-UP UNTIL RESOLUTION TO EXCLUDE UNDERLYING PULMONARY PARENCHYMAL PATHOLOGY. EKG @ 12 :17 - Sinus Bradychardia @ 58 BPM. NO STEMI. No change from 11/08/16. Pt was accepted for admission by Fabrice Gonzalez at 13:[address] [facility]. - Diagnoses Discharge Diagnoses: Hepatic encephalopathy, Chronic anemia - Provider Notifications Discussed Care Of Patient With: Fabrice Gonzalez Time Discussed With Above Provider: 13:05 Instructed by Provider To: Admit As Inpatient Discharge - Discharge Plan Condition: Stable Disposition: ADMITTED TO [facility] Referrals: Chris Simpson MD [Primary Care Provider] - The documentation as recorded by the Cynthia pickering Edward accurately reflects the service I personally performed and the decisions made by Lilli giordano Jerry, MD.
== END 2017-01-16 15:15 | DRG 442 ==
LOC: ED 10:38 → MED 14:24 → OBSVTOIN 01-14 20:20 → MED 01-15 12:58
PROVIDERS: ADMIT Internal Medicine; ATTEND Hospitalist
PROC: 30233N1 Transfusion of Nonautologous Red Blood Cells into Peripheral Vein, Percutaneous Approach (ICD-10-PCS; principal; 2017-01-13)
DX: K72.90 Hepatic failure, unspecified without coma (principal); D58.9 Hereditary hemolytic anemia, unspecified; N17.9 Acute kidney failure, unspecified; J90 Pleural effusion, not elsewhere classified; I85.00 Esophageal varices without bleeding; R18.8 Other ascites; E11.65 Type 2 diabetes mellitus with hyperglycemia; K76.6 Portal hypertension; K74.60 Unspecified cirrhosis of liver; D69.6 Thrombocytopenia, unspecified; K75.81 Nonalcoholic steatohepatitis (NASH); I35.0 Nonrheumatic aortic (valve) stenosis; Z90.49 Acquired absence of other specified parts of digestive tract; Z88.8 Allergy status to other drugs, medicaments and biological substances; Z82.3 Family history of stroke; R53.1 Weakness; R04.0 Epistaxis; K76.0 Fatty (change of) liver, not elsewhere classified; E78.5 Hyperlipidemia, unspecified; Z79.4 Long term (current) use of insulin
CPT/HCPCS: 36415; 71010; 80048; 80053; 80076; 81003; 82140; 82947; 83036; 83605; 84145; 84484; 85025; 85060; 85610; 86850; 86900; 86901; 86922; 87040; 87502; 93005; A9270-GY; G0378; J2405; P9040

== ENCOUNTER 2017-01-26 22:22 | Inpatient (IN) | payer MEDICARE, OTHER ==
[2017-01-26] MEDS ORDERED: NS 0.9% 1000 ML* 2,000 ML IV ONE (22:32)
[2017-01-26] MEDS ORDERED: Lactulose 300 ML for PR* 10 GM/15 ML BTL PR ONE (23:00)
[2017-01-27] MEDS ORDERED: Dextrose 50% Syringe 50 ML* 25 GM/50 ML SYRINGE IV PUSH PRN (01:42)
[2017-01-27] MEDS ORDERED: Ondansetron TAB* 4 MG PO PRN (01:43)
[2017-01-27] MEDS ORDERED: NS 0.9% 1000 ML* 1,000 ML IV SCH ×2 (01:45→14:00)
[2017-01-27] MEDS: Pantoprazole IV* 40 MG IV SCH (03:30)
[2017-01-27 03:36] LABS: ALT 22 U/L (7-52); AST 43 U/L (13-39); Albumin 2.3 g/dL (3.2-5.2); Alkaline Phosphatase 95 U/L (34-104); Anion Gap 5 mmol/L (2-11); BUN/Creatinine Ratio 31.1 (8-20); Blood Urea Nitrogen 41 mg/dL (6-24); C Reactive Protein 24.83 mg/L (< 5.00); CO2 Carbon Dioxide 28 mmol/L (22-32); Calcium 9.4 mg/dL (8.6-10.3); Chloride 97 mmol/L (101-111); Creatine Kinase 13 U/L (10-223); EGFR African American 51.3 (>60); EGFR Non-African American 39.9 (>60); Globulin 5.2 g/dL (2-4); Glucose 107 mg/dL (70-100); Lipase < 10 U/L (11.0-82.0); Magnesium 2.2 mg/dL (1.9-2.7); Potassium 4.2 mmol/L (3.5-5.0); Sodium 130 mmol/L (133-145); Total Protein 7.5 g/dL (6.4-8.9)
[2017-01-27 03:39] LABS: Troponin I 0.01 ng/mL (<0.04)
[2017-01-27 03:44] LABS: Add Diff/Slide Review? Slide Review Added; Comments Flag Yes; Hematocrit 20 % (35-47); Hemoglobin 7.1 g/dl (12.0-16.0); Mean Corpuscular HGB Conc 36 g/dl (31-36); Mean Corpuscular Hemoglobin 37 pg (27-31); Mean Corpuscular Volume 104 fL (80-97); Mean Platelet Volume 8 um3 (7.4-10.4); Red Blood Count 1.92 10^6/ul (4.0-5.4); Red Cell Distribution Width 23 % (10.5-15); White Blood Count 7.9 10^3/ul (3.5-10.8)
[2017-01-27] MEDS: Insulin LISPRO* 1 UNITS UNIT SUBCUT SCH ×4 (05:37→23:28)
--- NOTE | 2017-01-27 06:11 | ED ---
Myron Livingston Rebecca, scribed for Jai Pathak MD on 01/26/17 at 2229 . Altered Mental Status - HPI Summary HPI Summary: Pt is a 71 y/o F BIBA from [facility] due to concerns of AMS. Per nurse's triage, she presents with AMS characterized as confusion. Nurse additionally notes elevated ammonia levels, increased jaundice, stool incontinence and vomiting. PMHx cirrhosis. All Hx obtained from nurse and medical records. Level 5 caveat due to AMS. - History Of Current Complaint Chief Complaint: EDAltMentalStatus Stated Complaint: AMS Time Seen by Provider: 01/26/17 22:24 Hx Obtained From: Medical Records, Other: - Nurse Hx From Patient Unobtainable Due To: Altered Mental Status Hx Last Menstrual Period: n/a Onset/Duration: Still Present Character: Confusion Associated Signs And Symptoms: Positive: Vomiting - Allergies/Home Medications Allergies/Adverse Reactions: Allergies Allergy/AdvReac Type Severity Reaction Status Date / Time Gemfibrozil Allergy Mild Unknown Verified 01/27/17 01:03 Reaction Details Lisinopril Allergy Mild Rash Verified 01/27/17 01:03 PMH/Surg Hx/FS Hx/Imm Hx Endocrine/Hematology History: Reports: Hx Diabetes, Hx Anemia Cardiovascular History: Reports: Hx Hypercholesterolemia, Hx Hypertension GI History: Reports: Hx Cirrhosis, Other GI Disorders - history of GI bleed, and esophageal bleed. fatty liver disease Sensory History: Reports: Hx Contacts or Glasses, Hx Hearing Aid, Hx Hearing Problem Denies: Hx Legally Blind, Hx Deafness Opthamlomology History: Reports: Hx Contacts or Glasses Denies: Hx Legally Blind - Surgical History Surgery Procedure, Year, and Place: TIPS Infectious Disease History: No Infectious Disease History: Denies: Traveled Outside the [place] in Last 30 Days - Family History Known Family History: Positive: Other - cancer, perforated bowel, alzheimers - Social History Alcohol Use: None Alcohol Amount: former- rare Hx Substance Use: No Substance Use Type: Reports: None Hx Tobacco Use: Yes Smoking Status (MU): Former Smoker Review of Systems - ROS Summary Review of Systems Summary: Level 5 caveat due to AMS Positive: Other - Elevated ammonia levels Positive: Vomiting Positive: incontinence - stool Positive: Other - Increased jaundice Neurological: Other - AMS - confusion All Other Systems Reviewed And Are Negative: No Physical Exam - Summary Physical Exam Summary: General: jaundice Skin: warm, jaundice Head: normal Eyes: Pupils are 4 mm and reactive to light Respiratory: CTA, breath sounds present Cardiovascular: RRR Abdomen: soft, nontender Bowel: hypoactive GCS: 8 Triage Information Reviewed: Yes Vital Signs On Initial Exam: Initial Vitals Temp Pulse Resp BP Pulse Ox 98.1 F 65 12 138/41 97 01/26/17 22:22 01/26/17 22:22 01/26/17 22:22 01/26/17 22:22 01/26/17 22:22 Vital Signs Reviewed: Yes Completion Of Physical Exam Limited Due To: Altered Mental Status, Level 5 - Redford Coma Scale Best Eye Response: 3 - To Speech Best Motor Response: 4 - Withdraws Best Verbal Response: 1 - None Glascow Coma Scale Comments: 8 Diagnostics - Vital Signs Vital Signs Temp Pulse Resp BP Pulse Ox 01/26/17 22:22 98.1 F 65 12 138/41 97 - Laboratory Lab Results: Lab Results 01/26/17 01/26/17 01/26/17 Range/Units 23:00 23:00 23:00 WBC 7.9 (3.5-10.8) 10^3/ul RBC 1.92 L (4.0-5.4) 10^6/ul Hgb 7.1 L (12.0-16.0) g/dl Hct 20 L (35-47) % MCV 104 H (80-97) fL MCH 37 H (27-31) pg MCHC 36 (31-36) g/dl RDW 23 H (10.5-15) % Plt Count 64 L (150-450) 10^3/ul MPV 8 (7.4-10.4) um3 Neut % (Auto) 81.4 (38-83) % Lymph % (Auto) 5.3 L (25-47) % [place] % (Auto) 9.9 H (1-9) % Eos % (Auto) 3.1 (0-6) % Baso % (Auto) 0.3 (0-2) % Absolute Neuts (auto) 6.4 (1.5-7.7) 10^3/ul Absolute Lymphs (auto) 0.4 L (1.0-4.8) 10^3/ul Absolute Monos (auto) 0.8 (0-0.8) 10^3/ul Absolute Eos (auto) 0.2 (0-0.6) 10^3/ul Absolute Basos (auto) 0 (0-0.2) 10^3/ul Absolute Nucleated RBC 0.01 10^3/ul Nucleated RBC % 0.1 INR (Anticoag Therapy) (0.89-1.11) APTT (26.0-36.3) seconds Sodium 130 L (133-145) mmol/L Potassium 4.2 (3.5-5.0) mmol/L Chloride 97 L (101-111) mmol/L Carbon Dioxide 28 (22-32) mmol/L Anion Gap 5 (2-11) mmol/L BUN 41 H (6-24) mg/dL Creatinine 1.32 H (0.51-0.95) mg/dL Est GFR ( Amer) 51.3 (>60) Est GFR (Non-Af Amer) 39.9 (>60) BUN/Creatinine Ratio 31.1 H (8-20) Glucose 107 H (70-100) mg/dL Calcium 9.4 (8.6-10.3) mg/dL Magnesium 2.2 (1.9-2.7) mg/dL Total Bilirubin 5.30 H (0.2-1.0) mg/dL AST 43 H (13-39) U/L ALT 22 (7-52) U/L Alkaline Phosphatase 95 (34-104) U/L Total Creatine Kinase 13 (10-223) U/L CK-MB (CK-2) 1.3 (0.6-6.3) ng/mL Troponin I 0.01 (<0.04) ng/mL C-Reactive Protein 24.83 H (< 5.00) mg/L Total Protein 7.5 (6.4-8.9) g/dL Albumin 2.3 L (3.2-5.2) g/dL Globulin 5.2 H (2-4) g/dL Albumin/Globulin Ratio 0.4 L (1-3) Lipase < 10 L (11.0-82.0) U/L TSH 3.39 (0.34-5.60) mcIU/mL 01/26/17 Range/Units 23:00 WBC (3.5-10.8) 10^3/ul RBC (4.0-5.4) 10^6/ul Hgb (12.0-16.0) g/dl Hct (35-47) % MCV (80-97) fL MCH (27-31) pg MCHC (31-36) g/dl RDW (10.5-15) % Plt Count (150-450) 10^3/ul MPV (7.4-10.4) um3 Neut % (Auto) (38-83) % Lymph % (Auto) (25-47) % [place] % (Auto) (1-9) % Eos % (Auto) (0-6) % Baso % (Auto) (0-2) % Absolute Neuts (auto) (1.5-7.7) 10^3/ul Absolute Lymphs (auto) (1.0-4.8) 10^3/ul Absolute Monos (auto) (0-0.8) 10^3/ul Absolute Eos (auto) (0-0.6) 10^3/ul Absolute Basos (auto) (0-0.2) 10^3/ul Absolute Nucleated RBC 10^3/ul Nucleated RBC % INR (Anticoag Therapy) 1.12 H (0.89-1.11) APTT 33.2 (26.0-36.3) seconds Sodium (133-145) mmol/L Potassium (3.5-5.0) mmol/L Chloride (101-111) mmol/L Carbon Dioxide (22-32) mmol/L Anion Gap (2-11) mmol/L BUN (6-24) mg/dL Creatinine (0.51-0.95) mg/dL Est GFR ( Amer) (>60) Est GFR (Non-Af Amer) (>60) BUN/Creatinine Ratio (8-20) Glucose (70-100) mg/dL Calcium (8.6-10.3) mg/dL Magnesium (1.9-2.7) mg/dL Total Bilirubin (0.2-1.0) mg/dL AST (13-39) U/L ALT (7-52) U/L Alkaline Phosphatase (34-104) U/L Total Creatine Kinase (10-223) U/L CK-MB (CK-2) (0.6-6.3) ng/mL Troponin I (<0.04) ng/mL C-Reactive Protein (< 5.00) mg/L Total Protein (6.4-8.9) g/dL Albumin (3.2-5.2) g/dL Globulin (2-4) g/dL Albumin/Globulin Ratio (1-3) Lipase (11.0-82.0) U/L TSH (0.34-5.60) mcIU/mL Result Diagrams: 01/26/17 23:00 01/26/17 23:00 Lab Statement: Any lab studies that have been ordered have been reviewed, and results considered in the medical decision making process. - Radiology CXR Xray Interpretation: Positive (See Comments) - Blunting of the costophrenic angle, cephalization of the vasculature Radiology Interpretation Completed By: ED Physician - EKG 2246 Cardiac Rate: Bradycardia - 56 b[m EKG Rhythm: Sinus Bradycardia ST Segment: Normal Ectopy: PACs Altered Mental Statu Course/Dx - Course Assessment/Plan: Allergies noted. Elevated BP noted. LACTULOSE GIVEN THROUGH THE NG TUBE. ADMIT HOSPITALIST TO ICU. - Diagnoses Discharge Diagnoses: Hepatic encephalopathy, Anemia - Provider Notifications Discussed Care Of Patient With: Kasandra Meyer Time Discussed With Above Provider: 22:40 Instructed by Provider To: Other - Acepts pt for admission - Critical Care Time Critical Care Time: 30-74 min Discharge - Discharge Plan Condition: Guarded Disposition: ADMITTED TO [facility] The documentation as recorded by the Myron pickering Rebecca accurately reflects the service I personally performed and the decisions made by me, Jai Pathak MD.
--- NOTE | 2017-01-27 07:05 | RAD ---
INDICATION: Altered mental status. COMPARISON: Comparison is made with a prior study from January 13, 2017. TECHNIQUE: A portable view of the chest was obtained. FINDINGS: The heart is mildly enlarged. There is diffuse prominence of interstitial markings. There is a patchy infiltrate at the right lung base and a small right pleural effusion which appear improved from the prior study. IMPRESSION: FINDINGS SUGGESTIVE OF CONGESTIVE HEART FAILURE WITH POSSIBLE SUPERIMPOSED PNEUMONIA AT THE RIGHT LUNG BASE WHICH APPEARS IMPROVED FROM THE PRIOR STUDY.
--- NOTE | 2017-01-27 07:11 | HP ---
CC: Dr. Hoover; Dr. Simpson; Dr. Pederson HISTORY AND PHYSICAL: DATE OF ADMISSION: 01/27/17 PRIMARY CARE PROVIDER: Dr. Simpson GENERAL DOC: Dr. Hoover CHIEF COMPLAINT: Lethargy. HISTORY OF PRESENT ILLNESS: Mrs. Mckee is a 71-year-old female with a history of nonalcoholic liver cirrhosis, status post TIPS procedure in November 2016 who was noted to be lethargic for 2 days and p resented to the hospital today barely responsive. The patient was noted to have an ammonia level of 170 today drawn from the inpatient lab. An NG tube was placed in the ED and the patient received th e first dose of lactulose. From the discussion that I had with the patient's daughter, who is also the patient's healthcare proxy, it was noted that the patient had been "constipated" for the past se veral days. The family and the patient saw Dr. Hoover 4 days ago. The patient noticed that Dr. Hoover or dered MiraLAX on a p.r.n. basis. Nevertheless, the patient continues to have no stools despite bein g on lactulose [address] Hoover also recommended today the patient to be evaluated for a live r transplant and started a referral process to [facility]. The patient is going to be admitted to intensive care unit with a diagnosis of hepatic encephalopath y. PAST MEDICAL HISTORY: 1. Nonalcoholic liver disease and cirrhosis due to that. 2. History of portal hypertension. 3. History of esophageal varices bleed. 4. Diabetes. 5. Aortic stenosis. 6. Hyperlipidemia. 7. History of recently diagnosed hemolytic anemia. 8. Status post TIPS procedure in November 2016 at [place], [place]. 9. History of . 10. History of variceal bonding. 11. History of laparoscopic cholecystectomy. MEDICATIONS: At home include: 1. Acetaminophen on a p.r.n. basis. 2. Insulin as per sliding scale. 3. Insulin glargine 50 units at bedtime. 4. Lactulose 30 mL 4 times a day. 5. Imodium on a p.r.n. basis. 6. Milk of magnesia on a p.r.n. basis. 7. Multivitamin daily. 8. Nitroglycerin sublingually 0.4 mg on a p.r.n. basis. 9. Omeprazole 20 mg daily. 10. Simethicone 125 mg every 6 hours p.r.n. 11. Aldactone 100 mg daily. 12. Detrol 2 mg b.i.d. 13. Torsemide 20 mg daily. 14. Dulcolax suppository on a p.r.n. basis. 15. Nadolol 40 mg daily. 16. Zofran on a p.r.n. basis. 17. Rifaximin 550 mg b.i.d. ALLERGIES: Include GEMFIBROZIL and LISINOPRIL. FAMILY HISTORY: Mother has history of stroke. SOCIAL HISTORY: The patient is to a retired neurologist. Her healthcare proxy is her daugh young. She currently lives at [facility]. She is ambulating with a walker and a t baseline she, as per her daughter, is lucid. There is no history of alcohol, tobacco or drug use. REVIEW OF SYSTEMS: Unobtainable from the patient who is currently nonverbal with an NG tube. Per t he patient's daughter, the patient was getting less frequent loose bowel movements after lactulose f or the past [address] Hoover put the patient on laxatives, but it did not really help. The pat ient denied abdominal pain. Her weight had been stable. She had not had any fevers. All the remaining 12 systems were attempted to be reviewed with the daughter and were otherwise nega tive. PHYSICAL EXAMINATION GENERAL: The patient is a pleasant 71-year-old female who is lying in bed, nonverbal, able to turn herself in bed spontaneously. The patient is not following commands. VITAL SIGNS: Blood pressure 102/80, heart rate of 59 and regular, respiratory rate 22, oxygen satur ation 100% on room air, temperature of 98.1. HEENT: Head atraumatic, normocephalic. Eyes: Pupils are equal and reactive to light. Sclerae are anicteric. Oropharynx is clear. Mucosa dry. NECK: Supple. No JVD, no bruit bilaterally. RESPIRATORY: Clear to auscultation bilaterally. CARDIOVASCULAR: Regular rate and rhythm. No murmur. ABDOMEN: Soft, nontender. Bowel sounds are present in all 4 quadrants. EXTREMITIES: There is no edema. Pulses +2 bilaterally. There is no clubbing or cyanosis. NEURO EVALUATION: The patient is currently nonverbal, but she is able to move herself in bed and th ere is no focal weakness. She does have asterixis on evaluation of bilateral feet. SKIN: Jaundice noted. DIAGNOSTIC STUDIES/LAB DATA: Laboratory data was obtained on 01/26/17 at 1800. It showed sodium o f 129, potassium of 5.2, chloride 93, carbon dioxide 30, BUN 43, creatinine 1.35, glucose of 122. T otal bilirubin of 5.9, AST of 45, ALT of 23. Alkaline phosphatase is 107. Ammonia of 170. Albumin of 2.5, globulin of 5.3. TSH was 3.39. White blood cell count of 9.0, hemoglobin of 8.0, hematocrit of 23, MCV of 103, and platelets of 76. The patient's portable chest x-ray shows some increased interstitial markings in bilateral lung base s. The patient's EKG shows normal sinus rhythm with PACs with a heart rate of 157 beats per minute. ASSESSMENT AND PLAN: 1. Acute hepatic encephalopathy in a patient with known history of liver cirrhosis. The patient cu rrently appears dehydrated. I do not know if that was the cause of the patient's having fewer bowel movements. It does not appear that there were any other symptoms that would indicate to precipitat e the patient's hepatic encephalopathy. The patient's hemoglobin had been stable. Her abdomen is n ontender. She is afebrile. It does not appear that the patient has an ongoing infection. She is n ontoxic appearing. It also does not appear that she has a GI bleed. Especially, if she had GI blee d, she most likely would have frequent stools since blood is a cathartic. At this point, the patient is going to be admitted to intensive care unit for frequent monitoring. The lactulose is going to be placed every 4 hours via NG. Likely, the patient will require Gastroent erology consult in the morning. 2. In regards to the patient's anemia, the patient has a history of hemolytic anemia and was transf used a week and a half ago. The patient's hemoglobin at this point is at the patient's baseline. 3. In regards to the patient's thrombocytopenia, the patient's platelets are also at the patient's baseline. 4. Acute kidney injury, likely from dehydration. We will institute intravenous fluids and stop the patient's diuretics and check creatinine level in the morning. 5. In regards to the patient's diabetes, the patient is going to be placed on insulin sliding scale . 6. At this time, the patient's code status is full and that was discussed with the patient's daught er present in the room who is the patient's healthcare proxy. 7. For DVT prophylaxis, the patient is going to be placed on sequential compression devices due to severe thrombocytopenia. TIME SPENT: Approximately 65 minutes was spent on admission of this patient. [id number]/[facility] #: [id number]
[2017-01-27] MEDS ORDERED: Bisacodyl SUPP* 10 MG SUPP PR SCH (09:00)
[2017-01-27] MEDS: Nadolol TAB* 40 MG PO SCH (10:56)
[2017-01-27] MEDS: RiFAXimin* 550 MG TAB SCH ×2 (14:01→21:34)
--- NOTE | 2017-01-27 16:44 | PN ---
Hospitalist Progress Note Pt seen and examined. Oriented x self only circa 930 but x4 by 1520. Having BMs with NGT (did pull out this AM, then replaced) and lactulose. GI evaluated. Abd US ordered but pending til tomorrow given staff and radiologist expertise. continue lactulose, rifaxamin. Daily BMP, CBC, LFTs. Eventual [facility] liver transplant evaluation. New MOLST form filled out (family wants trial intubation). Dimitry Mcdonough MD
--- NOTE | 2017-01-27 17:43 | CONS ---
GASTROENTEROLOGY CONSULTATION: DATE OF CONSULT: 01/27/17 PRIMARY CARE PROVIDER: Dr. Simpson. HOSPITAL PROVIDER: Dr. Kasandra Meyer. CAMPUS SECURITY OFFICER: Dr. Hoover. REASON FOR CONSULT: Hepatic encephalomyopathy. HISTORY OF PRESENT ILLNESS: Ms. Mckee is a 71-year-old female with a past medical history of nonalcoholic liver cirrhosis, status post TIPS in November of 2016, complicated by hemolytic anemia and hepatic encephalopathy. She has a history of portal hypertension with bleeding esophageal varices s/p banding. She presented to [facility] from inpatient rehab due to worsening lethargy over the last 2 days and decreased responsiveness. When she presented to the emergency room, an NG tube was placed due to an elevated ammonia level of 170. According to the patient's daughter, who is her healthcare proxy, the patient had been constipated over the last few days. She was given MiraLAX for treatment of her constipation while on lactulose 4 times a day. She was unable to have bowel movements and remained constipated. Her lethargy and confusion worsened prompting them to bring her to the emergency room. She is currently under the care of Dr. Hoover, telescope maintenance, and a referral process has been initiated for a possible liver transplant in [place]. PAST MEDICAL HISTORY: 1. Non-alcoholic liver disease with cirrhosis 2. Portal hypertension 3. Bleeding esophageal varices with variceal banding 4. Aortic stenosis 5. S/p TIPS complicated by hemolytic anemia and hepatic encephalopathy 6. Hyperlipidemia 7. Diabetes. PAST SURGICAL HISTORY: 1. TIPS placement in November of 2006 in [place], [place]. 2. C- section 3. Laparoscopic cholecystectomy 4. Variceal banding via endoscopy. HOME MEDICATIONS: 1. Acetaminophen as needed. 2. Insulin. 3. Lactulose 30 mL 4 times daily. 4. Imodium p.r.n. 5. Milk of magnesia p.r.n. 6. Multivitamin daily. 7. Nitroglycerin p.r.n. 8. Omeprazole 20 mg daily. 9. Simethicone 125 mg every 6 hours p.r.n. 10. Aldactone 100 mg daily. 11. Detrol. 12. Torsemide 20 mg daily. 13. Dulcolax suppository p.r.n. 14. Nadolol 40 mg daily. 15. Zofran p.r.n. 16. Rifaximin 550 mg b.i.d. ALLERGIES: To GEMFIBROZIL and LISINOPRIL. FAMILY HISTORY: Reviewed and noncontributory. SOCIAL HISTORY: She currently lives at [facility]. She is to a retired neurologist. Her healthcare proxy is her daughter. No previous history of tobacco, alcohol, or recreational drug use. REVIEW OF SYSTEMS: Unable to be obtained due to the patient's encephalopathy. Per the patient's daughter, she was constipated, denied abdominal pain. Her weight has been stable. No recent fevers or chills, nausea, vomiting, hematemesis, dysphagia, or rectal bleeding. PHYSICAL EXAM: Temperature 98.2, heart rate 60, respirations 16, is 97% on room air, blood pressure is 90/24. Generally, the patient is nonverbal, lying in bed with an NG tube in place. She is not following commands but oriented to self only. She does respond to verbal stimuli. HEENT: Normocephalic and atraumatic. Anicteric sclerae bilaterally. Dry mucous membranes. Neck is supple. No JVD or bruits bilaterally. Respiratory: Clear to auscultation bilaterally. Cardiovascular Exam: Regular rate and rhythm. Abdomen: Soft, nontender, and nondistended. Positive bowel sounds in 4 quadrants. No rebound , guarding, or rigidity. No hepatosplenomegaly is appreciated. Extremities: No clubbing, cyanosis, or edema. Bilateral SCDs are present. Neuro: The patient is currently unable to respond to questions appropriately however, she is able to move around in the bed via all 4 extremities. LABORATORY DATA: WBC 7.9, hemoglobin 7.2, hematocrit 20, MCV 104, platelet count 64. INR 1.12, PTT 33.2. Sodium 130, potassium 4.2, chloride 97, CO2 28, anion gap 5, BUN 41, creatinine 1.32, lactic acid 1.6, calcium 9.4, magnesium 2.2. Total bilirubin 5.30, AST 43, ALT 22, alkaline phosphatase 95. Ammonia 121. Albumin 2.3, lipase less than 10. TSH 3.39. ASSESSMENT AND PLAN: Ms. Mckee is a 71-year-old female with a history of nonalcoholic liver cirrhosis, status post recent TIPS in November of 2016, who presented to [facility] with hepatic encephalopathy. Her liver disease is complicated by portal hypertension; bleeding esophageal varices with variceal banding; hemolytic anemia; hepatic encephalopathy. Her ammonia level on admission was 170. She is currently receiving lactulose and Rifaximin and is now having multiple bowel movements. Her vital signs appear to be stable. There is no recent history of gastrointestinal bleeding that may have contributed to precipitating her hepatic encephalopathy. 1. Nonalcoholic liver cirrhosis, status post recent TIPS in November of 2016. We will obtain an abdominal ultrasound with Doppler to evaluate for TIPS patency. The patient's hemolytic anemia and hepatic encephalopathy may be complications from recent TIPS placement. Would continue lactulose and Rifaximin to treat her hepatic encephalopathy. Once the patient has multiple bowel movements, may titrate the lactulose to maintain 3 to 4 bowel movements daily and continue Rifaximin BID. Of note, her INR is stable at 1.1. 2. History of bleeding esophageal varices. There is no indication for gastrointestinal bleeding at this time. She is on nadolol therapy 40 mg daily. We will continue to monitor the patient's hemoglobin, which is currently at 7.1, although this is likely from the patient's recent diagnosis of hemolytic anemia. She follows with a fabric finisher as an outpatient. 3. Gastroesophageal reflux disease. She is on omeprazole therapy 20 mg daily. 4. Thrombocytopenia, is likely secondary to the patient's hemolytic anemia. INR is currently stable at 1.1. 5. Acute kidney injury, likely from hypovolemia. She is currently on IV fluids and patient's diuretics are on hold at this time, which include Aldactone 100 mg daily and torsemide 20 mg daily. Thank you, Dr. Meyer, for allowing us to participate in the care of your patient. We will continue to follow your patient very closely. If you should have any further questions or concerns, please do not hesitate to contact us. The above recommendations were discussed with Dr. Mcdonough and nursing staff. [id number]/[facility] #: [id number] [place]
[2017-01-28] MEDS: Pantoprazole IV* 40 MG IV SCH (01:37)
[2017-01-28 05:45] LABS: BUN/Creatinine Ratio 25.5 (8-20); Calcium 8.9 mg/dL (8.6-10.3); Direct Bilirubin 1.9 mg/dL (0.03-0.18); EGFR African American 75.9 (>60); Globulin 4.7 g/dL (2-4); Indirect Bilirubin 3.6 mg/dL (0.3-1.0); Potassium 3.9 mmol/L (3.5-5.0); Total Bilirubin 5.5 mg/dL (0.2-1.0); Total Protein 6.7 g/dL (6.4-8.9)
[2017-01-28] MEDS: Insulin LISPRO* 1 UNITS UNIT SUBCUT SCH ×3 (06:04→19:33)
[2017-01-28 06:07] LABS: Hematocrit 19 % (35-47); Hemoglobin 6.6 g/dl (12.0-16.0); Mean Corpuscular HGB Conc 35 g/dl (31-36); Mean Corpuscular Hemoglobin 37 pg (27-31); Mean Platelet Volume 8 um3 (7.4-10.4); Red Blood Count 1.77 10^6/ul (4.0-5.4); Red Cell Distribution Width 24 % (10.5-15); White Blood Count 9.2 10^3/ul (3.5-10.8)
[2017-01-28 06:11] LABS: Comments Flag Yes
[2017-01-28 06:12] LABS: Add Diff/Slide Review? Slide Review Added; Mean Corpuscular Volume 107 fL (80-97)
[2017-01-28] MEDS: RiFAXimin* 550 MG TAB SCH ×2 (09:53→19:38)
[2017-01-28] MEDS: Nadolol TAB* 40 MG PO SCH (09:53)
--- NOTE | 2017-01-28 15:03 | PN ---
Subjective Date of Service: 01/28/17 Interval History: Pt continued with orientation back to baseline. NGT was removed. Transferred to [address] [place] [address] from ICU. Abdominal US performed (read pending). Bowel movements. Ammonia down to 77. Objective Active Medications: Dextrose (D50w Syringe 50 Ml*) 12.5 gm IV PUSH .FOR FS < 60 - SS PRN PRN Reason: FS < 60 Insulin Human Lispro (Humalog*) 0 units SUBCUT Q6HR SERG PRN Reason: Protocol Last Admin: 01/28/17 13:25 Dose: 3 unit Lactulose (Lactulose*) 30 ml NG TUBE Q4H [facility] Last Admin: 01/28/17 09:53 Dose: 30 ml Nadolol (Corgard Tab*) 40 mg PO DAILY [facility] Last Admin: 01/28/17 09:53 Dose: 40 mg Ondansetron HCl (Zofran Tab*) 4 mg PO Q4H PRN PRN Reason: EPIGASTRIC PAIN Pantoprazole Sodium (Protonix Iv*) 40 mg IV Q24H [facility] Last Admin: 01/28/17 01:37 Dose: 40 mg Rifaximin (Xifaxan*) 550 mg .SEE ORDER BID [facility] Last Admin: 01/28/17 09:53 Dose: 550 mg Vital Signs 01/27/17 01/27/17 01/27/17 15:00 15:30 16:00 Temperature 98.0 F Pulse Rate 58 59 58 Respiratory 15 17 16 Rate Blood Pressure 105/44 117/47 121/47 (mmHg) O2 Sat by Pulse 98 98 98 Oximetry 01/27/17 01/27/17 01/27/17 16:05 16:30 17:00 Temperature Pulse Rate 57 58 55 Respiratory 17 16 14 Rate Blood Pressure 121/47 116/47 106/43 (mmHg) O2 Sat by Pulse 98 98 98 Oximetry 01/27/17 01/27/17 01/27/17 17:30 17:48 18:00 Temperature Pulse Rate 63 61 Respiratory 16 20 16 Rate Blood Pressure 114/49 102/36 (mmHg) O2 Sat by Pulse 97 96 Oximetry 01/27/17 01/27/17 01/27/17 18:30 19:00 19:30 Temperature Pulse Rate 62 60 63 Respiratory 18 17 17 Rate Blood Pressure 110/47 111/45 109/41 (mmHg) O2 Sat by Pulse 97 96 98 Oximetry 01/27/17 01/27/17 01/27/17 20:00 20:30 21:00 Temperature 97.7 F Pulse Rate 60 62 58 Respiratory 18 17 17 Rate Blood Pressure 107/45 114/48 114/44 (mmHg) O2 Sat by Pulse 98 99 98 Oximetry 01/27/17 01/27/17 01/27/17 22:00 22:30 23:00 Temperature Pulse Rate 66 62 63 Respiratory 16 19 16 Rate Blood Pressure 114/41 120/51 119/47 (mmHg) O2 Sat by Pulse 98 99 97 Oximetry 01/27/17 01/27/17 01/28/17 23:17 23:30 00:00 Temperature 97 F Pulse Rate 62 60 61 Respiratory 18 17 17 Rate Blood Pressure 124/55 119/48 (mmHg) O2 Sat by Pulse 97 98 97 Oximetry 01/28/17 01/28/17 01/28/17 00:30 01:00 01:30 Temperature Pulse Rate 62 59 59 Respiratory 14 27 16 Rate Blood Pressure 123/45 119/53 114/40 (mmHg) O2 Sat by Pulse 98 96 99 Oximetry 01/28/17 01/28/17 01/28/17 02:00 02:30 03:00 Temperature Pulse Rate 63 61 63 Respiratory 14 14 16 Rate Blood Pressure 119/48 114/43 105/44 (mmHg) O2 Sat by Pulse 96 96 97 Oximetry 01/28/17 01/28/17 01/28/17 03:30 04:00 04:30 Temperature Pulse Rate 60 61 63 Respiratory 19 15 15 Rate Blood Pressure 114/46 108/45 105/46 (mmHg) O2 Sat by Pulse 96 98 95 Oximetry 01/28/17 01/28/17 01/28/17 05:00 05:30 06:00 Temperature Pulse Rate 58 64 61 Respiratory 20 18 18 Rate Blood Pressure 107/39 110/48 112/48 (mmHg) O2 Sat by Pulse 98 97 99 Oximetry 01/28/17 01/28/17 01/28/17 06:30 07:00 07:30 Temperature Pulse Rate 60 60 63 Respiratory 17 16 17 Rate Blood Pressure 117/41 117/43 90/48 (mmHg) O2 Sat by Pulse 97 96 96 Oximetry 01/28/17 01/28/17 01/28/17 08:00 08:15 08:30 Temperature 99.4 F Pulse Rate 62 61 Respiratory 17 17 Rate Blood Pressure 109/46 (mmHg) O2 Sat by Pulse 97 91 Oximetry 01/28/17 01/28/17 01/28/17 09:00 10:00 11:00 Temperature Pulse Rate 63 58 60 Respiratory 21 19 17 Rate Blood Pressure 115/37 108/45 111/47 (mmHg) O2 Sat by Pulse 95 98 97 Oximetry 01/28/17 01/28/17 01/28/17 12:00 12:25 13:00 Temperature 99.0 F Pulse Rate Respiratory 19 16 Rate Blood Pressure 113/40 (mmHg) O2 Sat by Pulse Oximetry 01/28/17 01/28/17 01/28/17 14:00 14:01 14:31 Temperature 98.4 F 98.4 F Pulse Rate 56 56 Respiratory 20 20 20 Rate Blood Pressure 116/35 116/35 (mmHg) O2 Sat by Pulse 97 97 Oximetry Appearance: NAD, sleepy but easily arousable. Jaundice Eyes: - - scleral icterus Neck: NL Appearance and Movements; NL JVP, Trachea Midline Respiratory: Symmetrical Chest Expansion and Respiratory Effort, Clear to Auscultation Cardiovascular: NL Sounds; No Murmurs; No JVD, RRR Abdominal: - - slight tenderness to palpation RLQ. not distended. Extremities: No Edema Skin: No Rash or Ulcers, - - jaundice Neurological: Alert and Oriented x 3, NL Sensation Nutrition: Taking PO's Result Diagrams: 01/28/17 05:19 01/28/17 05:19 Additional Lab and Data: Laboratory Results - last 24 hr 01/26/17 01/27/17 01/27/17 23:00 17:08 23:24 WBC RBC Hgb Hct MCV MCH MCHC RDW Plt Count MPV Neut % (Auto) Lymph % (Auto) [place] % (Auto) Eos % (Auto) Baso % (Auto) Absolute Neuts (auto) Absolute Lymphs (auto) Absolute Monos (auto) Absolute Eos (auto) Absolute Basos (auto) Absolute Nucleated RBC Nucleated RBC % Sodium Potassium Chloride Carbon Dioxide Anion Gap BUN Creatinine Est GFR ( Amer) Est GFR (Non-Af Amer) BUN/Creatinine Ratio Glucose POC Glucose (mg/dL) 134 H 135 H Calcium Total Bilirubin Direct Bilirubin Indirect Bilirubin AST ALT Alkaline Phosphatase Ammonia B-Natriuretic Peptide 625 H Total Protein Albumin Globulin Albumin/Globulin Ratio 01/28/17 01/28/17 01/28/17 05:19 05:19 05:19 WBC 9.2 RBC 1.77 L Hgb 6.6 L Hct 19 L MCV 107 H MCH 37 H MCHC 35 RDW 24 H Plt Count 50 L MPV 8 Neut % (Auto) 92.8 H Lymph % (Auto) 1.4 L [place] % (Auto) 1.8 Eos % (Auto) 3.2 Baso % (Auto) 0.8 Absolute Neuts (auto) 8.5 H Absolute Lymphs (auto) 0.1 L Absolute Monos (auto) 0.2 Absolute Eos (auto) 0.3 Absolute Basos (auto) 0.1 Absolute Nucleated RBC 0.01 Nucleated RBC % 0.1 Sodium 133 Potassium 3.9 Chloride 107 Carbon Dioxide 22 Anion Gap 4 BUN 24 Creatinine 0.94 Est GFR ( Amer) 75.9 Est GFR (Non-Af Amer) 59.0 BUN/Creatinine Ratio 25.5 H Glucose 109 H POC Glucose (mg/dL) Calcium 8.9 Total Bilirubin 5.50 H Direct Bilirubin 1.90 H Indirect Bilirubin 3.6 H AST 43 H ALT 24 Alkaline Phosphatase 89 Ammonia 77 H B-Natriuretic Peptide Total Protein 6.7 Albumin 2.0 L Globulin 4.7 H Albumin/Globulin Ratio 0.4 L 01/28/17 12:22 WBC RBC Hgb Hct MCV MCH MCHC RDW Plt Count MPV Neut % (Auto) Lymph % (Auto) [place] % (Auto) Eos % (Auto) Baso % (Auto) Absolute Neuts (auto) Absolute Lymphs (auto) Absolute Monos (auto) Absolute Eos (auto) Absolute Basos (auto) Absolute Nucleated RBC Nucleated RBC % Sodium Potassium Chloride Carbon Dioxide Anion Gap BUN Creatinine Est GFR ( Amer) Est GFR (Non-Af Amer) BUN/Creatinine Ratio Glucose POC Glucose (mg/dL) 251 H Calcium Total Bilirubin Direct Bilirubin Indirect Bilirubin AST ALT Alkaline Phosphatase Ammonia B-Natriuretic Peptide Total Protein Albumin Globulin Albumin/Globulin Ratio Microbiology and Other Data: Microbiology 01/26/17 23:18 Blood Venous Aerobic Blood Culture - Preliminary No Growth Day 1 01/26/17 23:18 Blood Venous Anaerobic Blood Culture - Preliminary No Growth Day 1 01/26/17 23:21 Blood Venous Aerobic Blood Culture - Preliminary No Growth Day 1 01/26/17 23:21 Blood Venous Anaerobic Blood Culture - Preliminary No Growth Day 1 01/27/17 03:20 Nasal Nasal Screen MRSA (PCR)(PILAR) - Final Mrsa Negative Assess/Plan/Problems-Billing Assessment: 71 year old female PMH non-alcoholic cirrhosis, hepatic encephalopathy s/p recent TIPS p/w constipation, hepatic encephalopathy. Improved after lactulose per NGT. Transferred out of ICU. [facility] liver transplant evaluation. - Patient Problems (1) Hepatic encephalopathy Current Visit: No Status: Acute Code(s): K72.90 - HEPATIC FAILURE, UNSPECIFIED WITHOUT COMA SNOMED Code(s): 95165111 Comment: - Ammonia improved 77 from 121 from 170 and encephalopathy resolving - Continue lactulose and Rifaximin - f/u abdominal US to evaluate TIPS patency - planned liver transplant eval at [facility] - appreciate GI recs (2) Altered mental status Current Visit: No Status: Acute Code(s): R41.82 - ALTERED MENTAL STATUS, UNSPECIFIED SNOMED Code(s): 802913922 Comment: likely 2/2 hepatic encephalopathy (plan as above) - BCx NGTD - incontinent of urine, eventual UA reflex cultre as able. - no significant ascites on exam (3) Cirrhosis of liver not due to alcohol Current Visit: No Status: Chronic Comment: - No significant ascites present currently - Continue home nadalol - consider restart home spironolactone and torsemide on 01/29, BPs slowly improving - Tbili 5.5, Na 133, Cocoa Butter Filter Operator 0.94, INR 1.12. MELD 19 (4) Thrombocytopenia Current Visit: No Status: Acute Code(s): D69.6 - THROMBOCYTOPENIA, UNSPECIFIED SNOMED Code(s): 404660159 Comment: longstanding, suspect 2/2 secondary liver disease and enlarged spleen. (5) Anemia Current Visit: No Status: Chronic Code(s): D64.9 - ANEMIA, UNSPECIFIED SNOMED Code(s): 837596842 Comment: - Macrocytic anemia requiring multiple transfusions. 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 - rare schistocytes seen 12/31, none since. Hapto low at time. Will recheck - Type and screen in AM. Hgb to 6.6 from 7.1 from 8.0 (6) Diabetes type 2, controlled Current Visit: No Status: Chronic Code(s): E11.9 - TYPE 2 DIABETES MELLITUS WITHOUT COMPLICATIONS SNOMED Code(s): 25422689 Comment: home dose of Lantus was 50mg. Just on SSI given poor po intake while encephalopathic. A1C only 5.9% on 01/14 but unreliable given so many blood transfusions. Status and Disposition: medicine inpatient. Potential d/c 01/29 back to [facility]. Attending: Dimitry Mcdonough
--- NOTE | 2017-01-28 16:24 | RAD ---
INDICATION: Right lower quadrant pain. COMPARISON: None TECHNIQUE: Real time ultrasound images of the liver, vasculature of the liver including the patient's transjugular portosystemic shunt were acquired in pineda scale and Doppler color flow. FINDINGS: Sonographic imaging reveals a right hepatic to right portal vein TIPS graft. Appropriate hepatopedal flow is recorded in the main portal vein and appropriate hepatofugal flow is recorded in the hepatic veins and IVC. Although flow is recorded in the stent graft shunt, the flow appears to be hepatofugal in the right portal vein. Adjacent to the shunt there is an intrahepatic fluid collection measuring approximately 2.8 x 2.3 x 1.8 cm. IMPRESSION: 1. Although ultrasound indicates hepatofugal flow in the right portal vein, the right hepatic to right portal vein TIPS stent graft appears to be patent. 2. There is a fluid collection adjacent to the stent measuring 2.8 cm in greatest dimension. [address] of the abdomen may be helpful to further define the TIPS and discern a potential leak causing the adjacent fluid collection described above.
[2017-01-29] MEDS: Pantoprazole IV* 40 MG IV SCH (00:23)
[2017-01-29] MEDS: Insulin LISPRO* 1 UNITS UNIT SUBCUT SCH ×3 (00:23→13:24)
[2017-01-29] MEDS ORDERED: Insulin GLARGINE(*) 1 UNITS UNIT SUBCUT SCH (08:00)
[2017-01-29] MEDS: Nadolol TAB* 40 MG PO SCH (08:37)
[2017-01-29] MEDS: RiFAXimin* 550 MG TAB SCH (08:37)
[2017-01-29 09:16] LABS: Hematocrit 20 % (35-47); Mean Corpuscular HGB Conc 35 g/dl (31-36); Mean Corpuscular Hemoglobin 38 pg (27-31); Mean Platelet Volume 8 um3 (7.4-10.4); Red Blood Count 1.83 10^6/ul (4.0-5.4); Red Cell Distribution Width 23 % (10.5-15); White Blood Count 7.7 10^3/ul (3.5-10.8)
[2017-01-29 09:27] LABS: Albumin 2.1 g/dL (3.2-5.2); BUN/Creatinine Ratio 28.1 (8-20); Calcium 9.3 mg/dL (8.6-10.3); Direct Bilirubin 1.8 mg/dL (0.03-0.18); EGFR African American 80.9 (>60); EGFR Non-African American 62.9 (>60); Globulin 4.9 g/dL (2-4); Indirect Bilirubin 3.4 mg/dL (0.3-1.0); Potassium 4.2 mmol/L (3.5-5.0); Total Bilirubin 5.2 mg/dL (0.2-1.0)
[2017-01-29 09:36] LABS: Comments Flag Yes
[2017-01-29 09:37] LABS: Mean Corpuscular Volume 107 fL (80-97)
[2017-01-29 09:38] LABS: Hemoglobin 6.9 g/dl (12.0-16.0)
--- NOTE | 2017-01-29 13:22 | DS ---
CC: Dr. Simpson; Dr. Radha Hoover, Rug Dyer Helper; Dr. David Pederson * DATE OF ADMISSION: 01/27/2017. DATE OF DISCHARGE: 01/29/2017. ADMITTING PROVIDER: Dr. Kasandra Meyer. ATTENDING PHYSICIAN: Dr. Dimitry Mcdonough. CHIEF COMPLAINT: Altered mental status, lethargy, constipation. PRINCIPAL DIAGNOSIS: Hepatic encephalopathy. 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 HISTORY OF PRESENT ILLNESS AND HOSPITAL COURSE: Ms. Mckee is a 71-year-old female with a past medical history as above who presented with two days of lethargy, progressed up to being barely responsive at her [facility] facility, [facility]. The patient was found to have an ammonia level of 170. The patient's daughter stated that she was constipated for the past several days and saw Dr. Radha Hoover four days prior to admission, was ordered MiraLax prn. Nevertheless, the patient continued to have no stools despite being on Lactulose four times a day. Dr. Hoover recommended on the date of admission that the patient be evaluated for a liver transplant and has started the referral process to [facility]. The patient was admitted to the Intensive Care Unit. An NG tube was placed and the patient received Lactulose q.4 hours. She started to have bowel movements over night that first day of admission. She was initially not following commands, nonverbal, but by that morning was able to say her name. By that afternoon of hospital day number one , she was oriented times four, but still drowsy. She has pulled her NG tube out , but it had been replaced and confirmed placement with Dr. Mary Salas of GI , who had also ordered an ultrasound of the abdomen which confirmed patency of the TIPS. The patient's ammonia levels rapidly improved from 170 as an outpatient to 121 and then 77 on the day prior to discharge. The patient has been suffering from anemia for several months ever since the TIPS, thought by Dr. Pederson to be nonimmune hemolytic anemia, not steroid responsive secondary to the TIPS procedure itself. Of note, the patient was noted to have rare schistocytes on one peripheral smear on previous admission back in I believe December 31 and undetectable haptoglobin levels. Her initial hemoglobin here was 7.1, on discharge it is 6.9. Her total bilirubin was in the mid 5s throughout admission. Her creatinine 0.89 on discharge. Her MELD score was 19 the day prior to admission. She is suffering from long-standing thrombocytopenia. The platelet were stable in the 50 to 60 range. No evidence of bleeding. The patient was initially resuscitated with 2 liters of fluid in the ED and then another half liter that first day of hospitalization. She did not have any significant ascites on exam. Her mental status continued to rapidly improve with the continued Lactulose and soft bowel movements. The NG tube was removed hospital day number two. She was tolerating a diet and back to her baseline mentation. The patient will need to have close monitoring of her bowel movements with recommended Lactulose administration every four to six hours initially, but titrated to approximately three soft bowel movements every day. This is critically important and if she is not having bowel movements, she needs to get more Lactulose and additional suppositories if necessary if constipation is suspected. Imodium has been held. Otherwise, no other changes in her medications. She will continue her Rifaximin 550 mg b.i.d. DISCHARGE MEDICATIONS: 1. Nadolol 40 mg p.o. daily. 2. Lactulose 30 cc p.o. q.4 to 6 hours, but titrated for 3 to 4 soft bowel movements a day. 3. Rifaximin 550 mg p.o. b.i.d. 4. Dulcolax suppository prn constipation. 5. Lantus 50 units at bedtime. 6. Milk of Magnesia prn constipation. 7. Multivitamin one tab p.o. daily. 8. Nitroglycerin 0.4 mg sublingual q.5 minutes prn chest pain. 9. Prilosec 20 mg p.o. daily. 10. Simethicone 125 mg p.o. q.6 hours. 11. Spironolactone 100 mg p.o. daily. 12. Tolterodine 2 mg p.o. b.i.d. 13. Torsemide 20 mg p.o. daily. DIET: Carbohydrate consistent, heart-healthy with no more than 80 gm of protein a day. ACTIVITY: No restriction. FOLLOW-UP: Follow-up with Dr. Simpson at [facility], Dr. Radha Hoover of for further transplant work-up in relation to [facility], and as needed with Dr. Pederson. Of note, repeat haptoglobin was drawn and pending. It is noted that on review of multiple peripheral smears drawn between December and January, only one had a rare schistocyte seen. The patient has been getting intermittent blood transfusions requiring 12 units of PRBC's and 6 units of platelets as of Dr. Pederson's last December note. Discharge exam included no ascites of note and no peripheral edema. Time spent on this discharge was 38 minutes. [id number]/[facility] #: [id number] [place]
[2017-01-29 13:34] VITALS: BP 101/27
== END 2017-01-29 14:00 | DRG 442 ==
LOC: ED 22:22 → ICU 01-27 01:18 → MED 01-28 13:50
PROVIDERS: ADMIT Internal Medicine; ATTEND Internal Medicine
DX: K72.00 Acute and subacute hepatic failure without coma (principal); K76.6 Portal hypertension; N17.9 Acute kidney failure, unspecified; D69.6 Thrombocytopenia, unspecified; D59.4 Other nonautoimmune hemolytic anemias; E86.0 Dehydration; E11.9 Type 2 diabetes mellitus without complications; K74.60 Unspecified cirrhosis of liver; I35.0 Nonrheumatic aortic (valve) stenosis; E78.5 Hyperlipidemia, unspecified; Z79.4 Long term (current) use of insulin; Z79.1 Long term (current) use of non-steroidal anti-inflammatories (NSAID); Z79.899 Other long term (current) drug therapy; Z88.8 Allergy status to other drugs, medicaments and biological substances; Z82.3 Family history of stroke; K21.9 Gastro-esophageal reflux disease without esophagitis
CPT/HCPCS: 36415; 71010; 76705; 80048; 80053; 80076; 82140; 82550; 82553; 83010; 83605; 83690; 83735; 83880; 84443; 84484; 85025; 85610; 85730; 86140; 86850; 86900; 86901; 87040; 87641; 93005; A9270-GY

== ENCOUNTER 2017-03-16 22:06 | Inpatient (IN) | payer MEDICARE, OTHER ==
[2017-03-17 00:53] LABS: Comments Flag Yes; Hematocrit 25 % (35-47); Hemoglobin 8.6 g/dl (12.0-16.0); Mean Corpuscular HGB Conc 35 g/dl (31-36); Mean Corpuscular Hemoglobin 33 pg (27-31); Mean Corpuscular Volume 96 fL (80-97); Mean Platelet Volume 8 um3 (7.4-10.4); Red Blood Count 2.58 10^6/ul (4.0-5.4); Red Cell Distribution Width 25 % (10.5-15); White Blood Count 12.5 10^3/ul (3.5-10.8)
[2017-03-17 00:54] LABS: Add Diff/Slide Review? Slide Review Added
[2017-03-17 01:04] LABS: Albumin 2.5 g/dL (3.2-5.2); BUN/Creatinine Ratio 48.2 (8-20); Calcium 10.5 mg/dL (8.6-10.3); EGFR African American 85.3 (>60); EGFR Non-African American 66.3 (>60); Globulin 5.1 g/dL (2-4); Potassium 4.8 mmol/L (3.5-5.0); Total Bilirubin 3.2 mg/dL (0.2-1.0); Total Protein 7.6 g/dL (6.4-8.9)
[2017-03-17] MEDS ORDERED: Al Hydrox/Mg Hydrox/Simet LIQ* 30 ML UDC PO PRN (02:39)
[2017-03-17] MEDS ORDERED: Simethicone TAB* 80 MG TAB.CHEW PO PRN (02:43)
[2017-03-17] MEDS ORDERED: Dextrose 50% Syringe 50 ML* 25 GM/50 ML SYRINGE IV PUSH PRN (02:46)
[2017-03-17] MEDS: NS 0.9% 1000 ML* 1,000 ML IV SCH ×2 (03:41→14:19)
[2017-03-17] MEDS: oxyCODONE TAB* 5 MG TAB PO PRN ×4 (03:57→21:45)
[2017-03-17 04:51] LABS: Hematocrit 21 % (35-47); Hemoglobin 7.2 g/dl (12.0-16.0); Mean Corpuscular HGB Conc 35 g/dl (31-36); Mean Corpuscular Hemoglobin 33 pg (27-31); Mean Corpuscular Volume 96 fL (80-97); Mean Platelet Volume 7 um3 (7.4-10.4); Red Blood Count 2.17 10^6/ul (4.0-5.4); Red Cell Distribution Width 24 % (10.5-15); White Blood Count 10.7 10^3/ul (3.5-10.8)
[2017-03-17 04:53] LABS: Comments Flag Yes
[2017-03-17 05:20] LABS: Urine Bilirubin Negative (Negative); Urine Glucose Negative (Negative); Urine Nitrite Negative (Negative)
[2017-03-17] MEDS: Oxybutynin TAB* 5 MG PO SCH ×2 (08:39→21:30)
[2017-03-17] MEDS: RiFAXimin* 550 MG TAB PO SCH ×2 (08:40→21:30)
[2017-03-17] MEDS: Omeprazole CAP* 20 MG PO SCH (08:40)
[2017-03-17] MEDS: Polyethylene Glycol 3350* 17 GM PACKET PO SCH ×3 (08:41→15:12)
[2017-03-17] MEDS: Insulin LISPRO* 1 UNITS UNIT SUBCUT SCH ×4 (08:42→20:08)
[2017-03-17] MEDS: Lactulose* 15 ML UDC PO SCH ×5 (08:59→21:30)
--- NOTE | 2017-03-17 08:59 | RAD ---
INDICATION: Fall COMPARISON: Most recent comparison chest x-rays January 26, 2017 TECHNIQUE: Single AP view of the chest was obtained. FINDINGS: The heart and mediastinum exhibit normal size and contour. The lungs are grossly clear. There is no evidence of a large pleural effusion. Visualized bones are normal for the patient's age. IMPRESSION: No radiographic evidence for acute cardiopulmonary abnormality on this single AP view chest x-ray.
--- NOTE | 2017-03-17 09:00 | RAD ---
INDICATION: Fall TECHNIQUE: An AP view of the pelvis was obtained. FINDINGS: The bones are in normal alignment. No fracture is seen. Joint spaces appear maintained. IMPRESSION: NO EVIDENCE FOR FRACTURE. IF THE PATIENT'S SYMPTOMS PERSIST RECOMMEND FOLLOW-UP IMAGING.
--- NOTE | 2017-03-17 09:07 | PN ---
Progress Note - Progress Note Date of Service: 03/17/17 Note: Patient is [address] y[address] reveals rt P/O SAH. Repeat CT today Monitor VS and Neurochecks PLT transfusion pending. Please keep PLT above 75K SZ prophylaxix for 7 days. Full consult dictated :[id number] Adia Tubbs MD
--- NOTE | 2017-03-17 09:16 | PN ---
Subjective Date of Service: 03/17/17 Interval History: HOSPITALIST PROGRESS NOTE Patient seen and examined at bedside. She feels a little better this AM, major complaint is buttocks pain. No headache , change in vision, nausea or vomiting. Family History: Unchanged from Admission Social History: Unchanged from Admission Past Medical History: Unchanged from Admission Objective Active Medications: Al Hydrox/Mg Hydrox/Simethicone (Maalox Plus*) 30 ml PO Q6H PRN PRN Reason: INDIGESTION Dextrose (D50w Syringe 50 Ml*) 12.5 gm IV PUSH .FOR FS < 60 - SS PRN PRN Reason: FS < 60 Sodium Chloride (Ns 0.9% 1000 Ml*) 1,000 mls @ 100 mls/hr IV PER RATE COUNT INCLUDES THE [facility] Last Admin: 03/17/17 03:41 Dose: 100 mls/hr Levetiracetam (Keppra Iv Premix*) 500 mg in 100 mls @ 400 mls/hr IV Q12H COUNT INCLUDES THE [facility] Insulin Glargine (Lantus(*)) 20 units SUBCUT Q24H SERG Insulin Human Lispro (Humalog*) 0 units SUBCUT AC SERG PRN Reason: Protocol Last Admin: 03/17/17 08:42 Dose: Not Given Lactulose (Lactulose*) 15 ml PO 0900,1200,1500,1800 COUNT INCLUDES THE [facility] Last Admin: 03/17/17 08:59 Dose: 15 ml Lactulose (Lactulose*) 15 ml PO BEDTIME COUNT INCLUDES THE [facility] Omeprazole (Prilosec Cap*) 20 mg PO DAILY@0730 COUNT INCLUDES THE [facility] Last Admin: 03/17/17 08:40 Dose: 20 mg Ondansetron HCl (Zofran Inj*) 4 mg IV Q4H PRN PRN Reason: NAUSEA/VOMITING Oxybutynin Chloride (Ditropan Tab*) 5 mg PO BID COUNT INCLUDES THE [facility] PRN Reason: Protocol Last Admin: 03/17/17 08:39 Dose: 5 mg Oxycodone HCl (Roxycodone Tab*) 2.5 mg PO Q4H PRN PRN Reason: PAIN Last Admin: 03/17/17 08:35 Dose: 2.5 mg Polyethylene Glycol/Electrolytes (Miralax*) 17 gm PO DAILY COUNT INCLUDES THE [facility] Last Admin: 03/17/17 08:50 Dose: Not Given Rifaximin (Xifaxan*) 550 mg PO BID COUNT INCLUDES THE [facility] Last Admin: 03/17/17 08:40 Dose: 550 mg Simethicone (Mylicon Tab*) 125 mg PO Q6H PRN PRN Reason: gas Vital Signs 03/17/17 03/17/17 03/17/17 07:00 07:01 07:22 Temperature 99.4 F Pulse Rate 75 76 Respiratory 18 23 Rate Blood Pressure 95/38 (mmHg) O2 Sat by Pulse 98 99 Oximetry Oxygen Devices in Use Now: None Appearance: Elderly lady lying in bed in NAD. Eyes: No Scleral Icterus Ears/Nose/Mouth/Throat: Mucous Membranes Moist Neck: Trachea Midline Respiratory: Symmetrical Chest Expansion and Respiratory Effort, Clear to Auscultation Cardiovascular: RRR - Normal S1 and S2 Abdominal: NL Sounds; No Tenderness; No Distention Neurological: Alert and Oriented x 3, NL Muscle Strength and Tone Result Diagrams: 03/17/17 12:10 03/16/17 00:20 Assess/Plan/Problems-Billing Assessment: Mrs. Mckee is a 71yo F with PMH of ROSA, liver cirrhosis, portal HTN, s/p TIPS, esophageal varices, UGI bleed, type 2 DM, HLD, hepatic encephalopathy, who presented to ED after sustaining a mechanical fall, found to have a SAH. - Patient Problems (1) Subarachnoid hemorrhage Comment: - Repeat CT brain shows SAH is stable. - Neurosurgery input appreciated - recommended conservative treatment, seizure prophylaxis, keep platelets >75K, and SBP 120-140. - Continue to monitor in ICU with neurochecks. (2) Thrombocytopenia Comment: - Secondary to liver cirrhosis. - S/p 1 platelet unit with platelets of 37k after transfusion. - D/w Hematology - recommended transfusing another unit, but platelets of 75k are not realistic unfortunately, due to her liver disease/hypersplenism. A more realistic goal would platelets around 50k. (3) Diabetes type 2, controlled Comment: - Controlled. - Advance diet. - Continue Lantus and Lispro SS. (4) Cirrhosis of liver not due to alcohol Comment: - Continue Lactulose and Rifaximin. (5) Coccyx pain Comment: - Xray was negative for fracture. - Continue pain management. - If severe pain persists, will pursue CT. (6) DVT prophylaxis Comment: - Pharmacological prophylaxis contraindicated in the setting of SAH. - SCDs. (7) Full code status Status and Disposition: Inpatient. Continue to monitor in ICU.
[2017-03-17] MEDS: levETIRAcetam 500 MG IVPREMIX* 500 MG/100 ML BAG IV SCH ×2 (10:20→21:30)
--- NOTE | 2017-03-17 10:21 | RAD ---
indication: Trauma. COMPARISON: CT of the brain dated December 31, [address] scan of the brain and c-spine was performed without intravenous contrast enhancement. Contiguous axial sections were obtained from the lung apices through the vertex. BRAIN: There is subarachnoid hemorrhage involving the right parietal-occipital lobes (axial image 19 of 32). There is currently no large subdural hematoma causing mass effect or herniation. The ventricles, cisterns and sulci are within normal limits. No significant focal abnormality or mass effect is seen. The pineda-white differentiation is adequately maintained. No significant bony abnormality is present. The mastoid air cells are appropriately aerated. The visualized paranasal sinuses are clear. C-SPINE: On the sagittal view images the normal cervical lordosis is preserved. The facet joints and vertebral bodies are appropriately aligned. There is no definite fracture or dislocation. Multilevel degenerative changes include mild loss of intervertebral disc height at the mid-level and lower cervical spine. There is no hyperdense material in the cervical canal to indicate hemorrhage. The visualized musculature and soft tissues are normal. There is no gross lymphadenopathy visualized. The visualized portion of the lung apices are clear. IMPRESSION: 1. Involving the right parietal-occipital lobe there is area of subarachnoid hemorrhage without significant mass effect or herniation. 2. Mild degenerative changes of the cervical spine without acute fracture or dislocation.
--- NOTE | 2017-03-17 10:40 | HP ---
CC: Chris Simpson MD HISTORY AND PHYSICAL: DATE OF ADMISSION: 03/17/17 TIME OF EVALUATION: 0200 PRIMARY CARE PHYSICIAN: Chris Simpson MD CHIEF COMPLAINT: Fall. HISTORY OF PRESENT ILLNESS: This is a 71-year-old female with a past medical history of nonalcoholic liver disease and cirrhosis and portal hypertension and thrombocytopenia who presented to the emergency room from [facility] after having a mechanical fall. The patient states she was wheeling a walker into the shower and got caught on the shower chair and she fell and she hit her tailbone and the back of her head. She denies any loss of consciousness. No nausea or vomiting. She states she has a mild headache and her mouth keeps bleeding. She denies any chest pain or shortness of breath. No abdominal pain. She does have some urinary urgency. No changes in her usual state of health. Otherwise, remaining review of systems negative in the emergency room. The patient had labs and imaging, she was found to have a small subarachnoid hemorrhage and a small possible subdural hemorrhage. Neurosurgery was contacted. They recommended admission for observation and hospitalist service was notified for admission and evaluation. In the emergency room, the patient got one dose of lactulose. PAST MEDICAL HISTORY: 1. Nonalcoholic liver disease and cirrhosis. 2. History of portal hypertension. 3. History of esophageal varices bleed. 4. Diabetes. 5. Aortic sclerosis. 6. Hyperlipidemia. 7. History of hemolytic anemia. 8. History of TIPS on 12/09/16 in [place]. 9. Admission in January 2017 for hepatic encephalopathy. MEDICATIONS: 1. Rifaximin 550 mg p.o. b.i.d. 2. Nitro sublingual as necessary. 3. Multivitamin. 4. Simethicone 125 mg chew every 6 hours as needed. 5. Omeprazole 20 mg daily. 6. Tylenol 650 mg every 6 hours as needed. 7. Tylenol suppositories 650 mg every 6 hours as needed. 8. Iron by mouth daily. 9. Detrol 2 mg b.i.d. 10. Zofran 4 mg every 4 hours as needed for nausea. 11. Lactulose 15 mL 5 times a day. 12. Spironolactone 100 mg p.o. daily. 13. Torsemide 20 mg daily. 14. MiraLAX daily and as needed. 15. Lantus 40 units at bedtime. 16. NovoLog sliding scale. ALLERGIES: GEMFIBROZIL, LISINOPRIL. FAMILY HISTORY: Mother, history of stroke. SOCIAL HISTORY: The patient lives at [facility] of [facility]. She is to a retired neurologist. Her healthcare proxy is her daughter Jossy and her . No history of smoking, alcohol or illicit drug use. Code status is a full code. REVIEW OF SYSTEMS: A 14-point review of systems are reviewed and as mentioned in the HPI, otherwise negative. PHYSICAL EXAMINATION GENERAL: In no acute distress. VITAL SIGNS: Temp 98.3, pulse rate 76, respiratory rate 16, oxygen saturation 99% on room air, blood pressure 109/24. HEENT: Head: Normocephalic. She does have a small hematoma in the posterior skull with no active bleeding. Pupils are equal, reactive and anicteric. Oropharynx: She has bloody secretions with no obvious source of bleeding within her mouth. NECK: Supple. No lymphadenopathy. RESPIRATORY: Diminished breath sounds. No wheezing, rhonchi, or rales. CARDIAC: Regular rate and rhythm. Systolic murmur heard most prominent at the right sternal base. ABDOMEN: Positive bowel sounds. Soft, nontender, nondistended. EXTREMITIES: No clubbing, cyanosis, or edema. +1 DPs. NEUROLOGIC: Alert and oriented x3. No focal neurologic deficits. LABORATORY DATA: White count 12.5, hemoglobin 8.6, hematocrit 25, platelets 48 ,000. INR is 1.13. Sodium 127, potassium 4.8, chloride 94, bicarb 41, creatinine 0.85, glucose 170, calcium 10.5, total bili of 3.21, AST is 50, ammonia is 56, albumin is 2.5. RADIOGRAPHIC DATA: Head CT positive for acute right parietal occipital subarachnoid hemorrhage, there may be a very small associated subdural component as well. No significant mass effect. There is no shift or herniation. ASSESSMENT: This is a 71-year-old female with a past medical history of liver disease secondary to nonalcoholic steatohepatitis who presents to the emergency room after having a mechanical fall, was found to have a subarachnoid hemorrhage and possible subdural hemorrhage. Mechanical fall. Assessment: The patient with subarachnoid hemorrhage and possible subdural hemorrhage. I spoke with Dr. Tubbs, Neurosurgery, did agree with giving platelets to the goal of platelets greater than 75,000. We will admit her to the ICU for close monitoring and neuro checks q.[address]. [address] her on gentle IV fluids, keep her n.p.o. with ice chips, follow up with Neurosurgery in the morning. We will hold her torsemide and spironolactone for now. CHRONIC MEDICAL PROBLEMS: 1. Diabetes. We will lower her Lantus to [address] her on lispro sliding scale. 2. History of nonalcoholic steatohepatitis with liver cirrhosis and encephalopathy. Assessment: Per daughter per the ER staff, she is at her baseline. She is alert and oriented x3. Plan: We will resume her rifaximin and her lactulose as scheduled. 3. Urinary urgency. We will continue her Detrol. We will follow up with a UA with the slight elevation in her white count. 4. Gastroesophageal reflux disease. Resume her omeprazole. 5. FEN: As mentioned, we will keep her n.p.o. for now with ice chips with gentle IV fluids. 6. Coccyx pain. Follow up on official read of her pelvis x-ray, no obvious deformity seen and pain control. 7. DVT prophylaxis: The patient scores moderate risk. We will place her on SCDs in the setting of a bleed. 8. Code status: Full code. TIME SPENT: Greater than 60 minutes was spent doing the history and physical, more than half the time spent in direct patient contact. [id number]/JAMIE #: [id number] COLEEN
--- NOTE | 2017-03-17 11:05 | CONS ---
CONSULTATION REPORT: DATE OF CONSULT: 03/17/17 HISTORY OF PRESENT ILLNESS: The patient is a very pleasant 71-year-old female who is a [facility] resident and has a history of renal failure and diabetes mellitus type 2. She was brought to the emergency room by her daughter after she was reported to have sustained a fall in the shower. While she was in the emergency room, the patient had received a scan that revealed a small right temporoparietal traumatic subarachnoid hemorrhage without mass effect with suspicion of a small subdural component. The patient had some complaints of pain in the coccyx area and was admitted to ICU by the hospitalist team. The patient was found to have thrombocytopenia with platelet count of 48,000 and is scheduled to receive platelets this morning. The patient denies any loss of consciousness during the accident. She denies any neck or back pain. She reports she does have some pain in the tailbone area. She denies any seizures. Denies any headaches, vision or speech problems. She denies any weakness, numbness or tingling in the extremities. She denies any urinary or GI incontinence. PAST MEDICAL HISTORY: The patient has a history of renal failure and diabetes, GI bleed, liver disease, history of migraines. PAST SURGICAL HISTORY: TIPS. ALLERGIES: GEMFIBROZIL and LISINOPRIL. FAMILY HISTORY: Cancer, perforated bowel, Alzheimer's. SOCIAL HISTORY: Was a former smoker. Alcohol negative. Recreational drug use negative. PHYSICAL EXAMINATION: The patient is not in acute distress. She has no tenderness to palpation of the cervical, thoracic or lumbar spine. She has a mild tenderness in the area of the coccyx. She has full range of motion of the cervical spine. She is awake, alert, oriented x3. Her pupils are equal and reactive. Cranial nerves II through XII are grossly intact. Motor 4-5/5 in all extremities. No pronator drift. Sensory is grossly intact to light touch. Deep tendon reflexes +1 bilaterally. No clonus. No Babinski. Momin's negative. Straight leg test is negative in the sitting position. Pedal pulses present bilaterally. DIAGNOSTIC STUDIES: The patient had a CT scan of the brain revealing a small amount of right parietooccipital subarachnoid hemorrhage in the sulci area without mass effect with a questionable component of subdural hematoma. The patient also got a CT scan of the cervical spine that revealed degenerative disease without evidence of fracture or subluxation. The patient also had a pelvic x-ray, which by report is negative for fracture. ASSESSMENT: The patient is a very pleasant 71-year-old female with history of liver failure, diabetes, who is a [facility] resident that was reported to have sustained a fall in the shower and her CT scan findings consistent with traumatic right parietooccipital subarachnoid hemorrhage. PLAN: The patient at this point is doing quite well. She is neurologically stable. There is no mass effect on the CT scan and we think that conservative treatment will be to her best benefit. We would recommend seizure prophylaxis for 7 days. The patient is scheduled to receive platelets. We would recommend platelet count target of above 75,[address] of the head today. Monitor vital signs and neuro checks in the ICU. Maintain euvolemia and systolic blood pressure 120 to 140 if possible. Thank you for allowing us to participate in the care of this patient. Please do not hesitate to contact our office in case you have any further questions or concerns regarding the care of this patient. Adia Tubbs MD [id number]/[facility] #: [id number] [facility] MEDICAL CENTERMohamud
--- NOTE | 2017-03-17 12:16 | RAD ---
INDICATION: Follow-up subarachnoid hemorrhage COMPARISON: Most recent CT of the brain is dated March 16, 2017 TECHNIQUE: Contiguous axial sections of the brain were obtained from the skull base to the vertex without contrast. FINDINGS: Evaluation is slightly limited by patient motion artifact. Again seen is hyperdensity interdigitating the sulci at the right parietal and occipital lobes. The appearance is not significantly changed from the most recent CT of the brain acquired March 16, 2017. There is no herniation or midline shift. IMPRESSION: Stable appearance of right parietal occipital subarachnoid hemorrhage.
[2017-03-17 12:20] LABS: Mean Platelet Volume 7 um3 (7.4-10.4)
[2017-03-17 12:32] LABS: Comments Flag Yes
[2017-03-17] MEDS ORDERED: Insulin GLARGINE(*) 1 UNITS UNIT SUBCUT SCH (21:00)
[2017-03-17 23:00] LABS: Mean Platelet Volume 7 um3 (7.4-10.4)
[2017-03-17 23:10] LABS: Comments Flag Yes
[2017-03-18 05:56] LABS: Hematocrit 20 % (35-47); Hemoglobin 6.8 g/dl (12.0-16.0); Mean Corpuscular HGB Conc 35 g/dl (31-36); Mean Corpuscular Hemoglobin 34 pg (27-31); Mean Corpuscular Volume 97 fL (80-97); Mean Platelet Volume 8 um3 (7.4-10.4); Red Blood Count 2.04 10^6/ul (4.0-5.4); White Blood Count 9.6 10^3/ul (3.5-10.8)
[2017-03-18 05:57] LABS: Comments Flag Yes
[2017-03-18 05:58] LABS: Add Diff/Slide Review? Slide Review Added; Red Cell Distribution Width 24 % (10.5-15)
[2017-03-18 06:11] LABS: Albumin 2.2 g/dL (3.2-5.2); BUN/Creatinine Ratio 43.8 (8-20); Calcium 10.3 mg/dL (8.6-10.3); EGFR African American 74.1 (>60); EGFR Non-African American 57.6 (>60); Globulin 4.5 g/dL (2-4); Potassium 4.8 mmol/L (3.5-5.0); Total Protein 6.7 g/dL (6.4-8.9)
[2017-03-18] MEDS: Omeprazole CAP* 20 MG PO SCH (08:24)
[2017-03-18] MEDS: Polyethylene Glycol 3350* 17 GM PACKET PO SCH (08:25)
[2017-03-18] MEDS: Oxybutynin TAB* 5 MG PO SCH ×2 (08:25→23:55)
[2017-03-18] MEDS: Lactulose* 15 ML UDC PO SCH ×5 (08:32→23:50)
[2017-03-18] MEDS: levETIRAcetam 500 MG IVPREMIX* 500 MG/100 ML BAG IV SCH ×2 (08:35→23:55)
[2017-03-18] MEDS: RiFAXimin* 550 MG TAB PO SCH ×2 (08:41→23:55)
--- NOTE | 2017-03-18 08:42 | PN ---
Subjective Date of Service: 03/18/17 Interval History: HOSPITALIST PROGRESS NOTE Patient seen and examined at bedside. She is tired today, but states her coccyx pain is less intense. Family History: Unchanged from Admission Social History: Unchanged from Admission Past Medical History: Unchanged from Admission Objective Active Medications: Al Hydrox/Mg Hydrox/Simethicone (Maalox Plus*) 30 ml PO Q6H PRN PRN Reason: INDIGESTION Dextrose (D50w Syringe 50 Ml*) 12.5 gm IV PUSH .FOR FS < 60 - SS PRN PRN Reason: FS < 60 Levetiracetam (Keppra Iv Premix*) 500 mg in 100 mls @ 400 mls/hr IV Q12H [facility] Last Admin: 03/18/17 08:35 Dose: 400 mls/hr Insulin Glargine (Lantus(*)) 15 units SUBCUT Q24H SERG Insulin Human Lispro (Humalog*) 0 units SUBCUT AC [facility] PRN Reason: Protocol Last Admin: 03/17/17 20:08 Dose: Not Given Lactulose (Lactulose*) 15 ml PO 0900,1200,1500,1800 [facility] Last Admin: 03/18/17 08:32 Dose: 15 ml Lactulose (Lactulose*) 15 ml PO BEDTIME [facility] Last Admin: 03/17/17 21:30 Dose: 15 ml Omeprazole (Prilosec Cap*) 20 mg PO DAILY@0730 [facility] Last Admin: 03/18/17 08:24 Dose: 20 mg Ondansetron HCl (Zofran Inj*) 4 mg IV Q4H PRN PRN Reason: NAUSEA/VOMITING Oxybutynin Chloride (Ditropan Tab*) 5 mg PO BID [facility] PRN Reason: Protocol Last Admin: 03/18/17 08:25 Dose: 5 mg Oxycodone HCl (Roxycodone Tab*) 2.5 mg PO Q4H PRN PRN Reason: PAIN Last Admin: 03/17/17 21:45 Dose: 2.5 mg Polyethylene Glycol/Electrolytes (Miralax*) 17 gm PO DAILY [facility] Last Admin: 03/18/17 08:25 Dose: 17 gm Rifaximin (Xifaxan*) 550 mg PO BID [facility] Last Admin: 03/18/17 08:41 Dose: 550 mg Simethicone (Mylicon Tab*) 125 mg PO Q6H PRN PRN Reason: gas Vital Signs 03/18/17 03/18/17 03/18/17 04:00 04:05 05:00 Temperature 99.7 F Pulse Rate 54 54 53 Respiratory 17 24 21 Rate Blood Pressure 99/12 103/34 97/40 (mmHg) O2 Sat by Pulse 96 100 95 Oximetry Oxygen Devices in Use Now: None Appearance: Pleasant elderly lady lying in bed in NAD. Eyes: No Scleral Icterus, PERRLA Ears/Nose/Mouth/Throat: Mucous Membranes Moist Neck: Trachea Midline Respiratory: Symmetrical Chest Expansion and Respiratory Effort, Clear to Auscultation Cardiovascular: RRR - Normal S1 and S2 Abdominal: NL Sounds; No Tenderness; No Distention Neurological: - - Arousable to voice, Ox3, GARG Result Diagrams: 03/18/17 05:45 03/18/17 05:45 Assess/Plan/Problems-Billing Assessment: Mrs. Mckee is a 71yo F with PMH of ROSA, liver cirrhosis, portal HTN, s/p TIPS, esophageal varices, UGI bleed, type 2 DM, HLD, hepatic encephalopathy, who presented to ED after sustaining a mechanical fall, found to have a SAH. - Patient Problems (1) Subarachnoid hemorrhage Comment: - Repeat CT brain shows SAH is stable. - Neurosurgery input appreciated. - Continue to monitor in ICU with neurochecks. (2) Thrombocytopenia Comment: - Secondary to liver cirrhosis. - S/p 2 platelet unit 03/17 with platelets of 36k after transfusion. - D/w Hematology - platelets of 75k may not be possible, due to her liver disease/hypersplenism. - INR is 1.2 and firbrinogen is WNL. (3) Diabetes type 2, controlled Comment: - Flucose was on the lower side this AM. - Decrease Lantus to 15 and continue Lispro SS. (4) Cirrhosis of liver not due to alcohol Comment: - Continue Lactulose and Rifaximin. - Ammonia is 34. (5) Coccyx pain Comment: - Xray was negative for fracture. - Pain is improved today - continue to monitor. (6) DVT prophylaxis Comment: - Pharmacological prophylaxis contraindicated in the setting of SAH. - SCDs. (7) Full code status Status and Disposition: Inpatient. Continue to monitor in ICU.
[2017-03-18] MEDS: oxyCODONE TAB* 5 MG TAB PO PRN ×3 (09:08→23:46)
--- NOTE | 2017-03-18 10:33 | PN ---
Progress Note - Progress Note Date of Service: 03/18/17 SOAP: Subjective: []No events ON. In ICU. No JERRY. Mild complains of pain in the coccyx area. Objective: []VSS, Afebrile AAOx3 NINFA, face symmetric, Rissa 4-5/5 no pronator drift. Sensory grossly intact to light touch. Assessment: []71 yof HD #2, liver failure, multiple medical problems, reported fall, CHI with rt P/O SAH Plan: []Monitor VS, Neurochecks. Repeat CT stable. Agree with consideration of CT of pelvis, to r/o coccyx/sacral fracture Keep PLT >75k if possible, Appreciate IM, Hematology input, goal of 75K might not be feasible . SZ prophylaxis for 7 days. Adia Tubbs MD
[2017-03-18] MEDS: Insulin LISPRO* 1 UNITS UNIT SUBCUT SCH ×6 (13:33→23:27)
[2017-03-18] MEDS: Ondansetron INJ* 2 MG/ML VIAL IV PRN (20:25)
[2017-03-18] MEDS ORDERED: Insulin GLARGINE(*) 1 UNITS UNIT SUBCUT SCH (21:00)
[2017-03-19 06:24] LABS: Hematocrit 23 % (35-47); Mean Corpuscular HGB Conc 35 g/dl (31-36); Mean Corpuscular Hemoglobin 34 pg (27-31); Mean Corpuscular Volume 96 fL (80-97); Mean Platelet Volume 9 um3 (7.4-10.4); Red Blood Count 2.39 10^6/ul (4.0-5.4); White Blood Count 10.1 10^3/ul (3.5-10.8)
[2017-03-19 06:25] LABS: Comments Flag Yes
[2017-03-19 06:26] LABS: Red Cell Distribution Width 22 % (10.5-15)
[2017-03-19 06:37] LABS: BUN/Creatinine Ratio 47.1 (8-20); Calcium 10.4 mg/dL (8.6-10.3); EGFR Non-African American 64.6 (>60)
[2017-03-19 06:44] LABS: Potassium 5.2 mmol/L (3.5-5.0)
[2017-03-19] MEDS: Insulin LISPRO* 1 UNITS UNIT SUBCUT SCH ×7 (07:50→21:08)
--- NOTE | 2017-03-19 08:07 | PN ---
Subjective Date of Service: 03/19/17 Interval History: HOSPITALIST PROGRESS NOTE Patient seen and examined at bedside. More lethargic today, but arousable with no neurodeficits. Family History: Unchanged from Admission Social History: Unchanged from Admission Past Medical History: Unchanged from Admission Objective Active Medications: Al Hydrox/Mg Hydrox/Simethicone (Maalox Plus*) 30 ml PO Q6H PRN PRN Reason: INDIGESTION Dextrose (D50w Syringe 50 Ml*) 12.5 gm IV PUSH .FOR FS < 60 - SS PRN PRN Reason: FS < 60 Levetiracetam (Keppra Iv Premix*) 500 mg in 100 mls @ 400 mls/hr IV Q12H [facility] Last Admin: 03/18/17 23:55 Dose: 400 mls/hr Insulin Glargine (Lantus(*)) 15 units SUBCUT Q24H [facility] Last Admin: 03/18/17 23:28 Dose: 15 units Insulin Human Lispro (Humalog*) 0 units SUBCUT AC [facility] PRN Reason: Protocol Last Admin: 03/18/17 19:29 Dose: 1 unit Insulin Human Lispro (Humalog*) 0 units SUBCUT ACHS [facility] PRN Reason: Protocol Last Admin: 03/19/17 07:50 Dose: Not Given Lactulose (Lactulose*) 15 ml PO 2100 [facility] Last Admin: 03/18/17 23:50 Dose: 15 ml Lactulose (Lactulose*) 30 ml PO 0900,1200,1500,1800 [facility] Omeprazole (Prilosec Cap*) 20 mg PO DAILY@0730 [facility] Last Admin: 03/18/17 08:24 Dose: 20 mg Ondansetron HCl (Zofran Inj*) 4 mg IV Q4H PRN PRN Reason: NAUSEA/VOMITING Last Admin: 03/18/17 20:25 Dose: 4 mg Oxybutynin Chloride (Ditropan Tab*) 5 mg PO BID [facility] PRN Reason: Protocol Last Admin: 03/18/17 23:55 Dose: 5 mg Oxycodone HCl (Roxycodone Tab*) 2.5 mg PO Q8H PRN PRN Reason: PAIN Polyethylene Glycol/Electrolytes (Miralax*) 17 gm PO DAILY [facility] Last Admin: 03/18/17 08:25 Dose: 17 gm Rifaximin (Xifaxan*) 550 mg PO BID [facility] Last Admin: 03/18/17 23:55 Dose: 550 mg Simethicone (Mylicon Tab*) 125 mg PO Q6H PRN PRN Reason: gas Vital Signs 03/19/17 03/19/17 03/19/17 03:01 03:59 04:00 Temperature 98.9 F Pulse Rate 64 64 Respiratory 15 14 Rate Blood Pressure 107/44 (mmHg) O2 Sat by Pulse 100 100 Oximetry Oxygen Devices in Use Now: Nasal Cannula Appearance: Elderly lady lying in bed in NAD. Eyes: No Scleral Icterus Ears/Nose/Mouth/Throat: Mucous Membranes Moist Neck: Trachea Midline Respiratory: Symmetrical Chest Expansion and Respiratory Effort, Clear to Auscultation Cardiovascular: RRR - Normal S1 and S2 Abdominal: NL Sounds; No Tenderness; No Distention Neurological: - - Lethargic, arousable to voice, Ox2 (self and place) Result Diagrams: 03/19/17 06:10 03/19/17 06:10 Assess/Plan/Problems-Billing Assessment: Mrs. Mckee is a 71yo F with PMH of ROSA, liver cirrhosis, portal HTN, s/p TIPS, esophageal varices, UGI bleed, type 2 DM, HLD, hepatic encephalopathy, who presented to ED after sustaining a mechanical fall, found to have a SAH. - Patient Problems (1) Subarachnoid hemorrhage Comment: - Repeat CT brain shows SAH is stable. - Neurosurgery input appreciated. - Continue to monitor in ICU with neurochecks. (2) Thrombocytopenia Comment: - Secondary to liver cirrhosis. - S/p 2 platelet unit 03/17 with platelets of 36k after transfusion. - D/w Hematology - platelets of 75k may not be possible, due to her liver disease/hypersplenism. - INR is 1.2 and firbrinogen is WNL. (3) Diabetes type 2, controlled Comment: - Glucose was on the lower side this AM. - Decrease Lantus to 10 and continue Lispro SS. (4) Cirrhosis of liver not due to alcohol Comment: - Encephalopathic today with Ammonia 72 - Increase Lactulose and Rifaximin. (5) Coccyx pain Comment: - Xray was negative for fracture. - Pain is improved today - continue to monitor. (6) DVT prophylaxis Comment: - Pharmacological prophylaxis contraindicated in the setting of SAH. - SCDs. (7) Full code status Status and Disposition: Inpatient. Continue to monitor in ICU.
[2017-03-19] MEDS: Lactulose* 15 ML UDC PO SCH ×5 (08:40→20:57)
[2017-03-19] MEDS: Omeprazole CAP* 20 MG PO SCH (08:40)
[2017-03-19] MEDS: levETIRAcetam 500 MG IVPREMIX* 500 MG/100 ML BAG IV SCH ×2 (08:40→20:58)
[2017-03-19] MEDS: Oxybutynin TAB* 5 MG PO SCH ×2 (08:40→20:57)
[2017-03-19] MEDS: Polyethylene Glycol 3350* 17 GM PACKET PO SCH (08:40)
[2017-03-19] MEDS: RiFAXimin* 550 MG TAB PO SCH ×2 (08:40→20:57)
--- NOTE | 2017-03-19 08:44 | RAD ---
HISTORY: Follow-up subarachnoid hemorrhage COMPARISONS: March 17, 2017, March 16, 2017 TECHNIQUE: Multiple contiguous axial CT scans were obtained of the head without intravenous contrast. FINDINGS: HEMORRHAGE/INFARCT: Again noted is a small amount of right parieto-occipital subarachnoid hemorrhage. This is similar to the previous examinations. Elsewhere, there is no hemorrhage or acute infarct. MASSES/SHIFT: There is no mass or shift. EXTRA-AXIAL SPACES: As noted above, there are stable small amount of right parietal occipital [hemorrhage. SULCI AND VENTRICLES: The sulci and ventricles are normal in size and position for the patient's stated age. CEREBRUM: There are no focal parenchymal abnormalities. BRAINSTEM: There are no focal parenchymal abnormalities. CEREBELLUM: There are no focal parenchymal abnormalities. VESSELS: The vessels are grossly normal. PARANASAL SINUSES: The paranasal sinuses are clear. ORBITS: The orbits are unremarkable. BONES AND SOFT TISSUE: No bone or soft tissue abnormalities are noted. OTHER: None IMPRESSION: STABLE RIGHT PARIETO-OCCIPITAL SUBARACHNOID HEMORRHAGE
[2017-03-19] MEDS ORDERED: Phytonadione Oral Solution* 5 MG/25 ML UDC PO ONE (11:13)
--- NOTE | 2017-03-19 16:09 | PN ---
Progress Note - Progress Note Date of Service: 03/19/17 SOAP: Subjective: []Patient seen earlier in the morning. No events ON. In ICU. No JERRY. Mild complains of pain in the coccyx area still present. Reported to be lethargic earlier in am. Repeat CT stable. Objective: []VSS, Afebrile AAOx3 NINFA, face symmetric, Rissa 4-5/5 no pronator drift. Sensory grossly intact to light touch. Assessment: []71 yof HD #3, liver failure, multiple medical problems, reported fall, CHI with rt P/O SAH Plan: []Monitor VS, Neurochecks. Keep PLT >75k if possible, Appreciate IM, Hematology input. SZ prophylaxis for 7 days. Adia Tubbs MD .
[2017-03-19] MEDS: oxyCODONE TAB* 5 MG TAB PO PRN (20:57)
[2017-03-19] MEDS: Insulin GLARGINE(*) 1 UNITS UNIT SUBCUT SCH (21:08)
[2017-03-20 05:12] LABS: Hematocrit 23 % (35-47); Hemoglobin 7.9 g/dl (12.0-16.0); Mean Corpuscular HGB Conc 35 g/dl (31-36); Mean Corpuscular Hemoglobin 34 pg (27-31); Mean Corpuscular Volume 96 fL (80-97); Mean Platelet Volume 9 um3 (7.4-10.4); Red Blood Count 2.34 10^6/ul (4.0-5.4); White Blood Count 8.2 10^3/ul (3.5-10.8)
[2017-03-20 05:14] LABS: Comments Flag Yes
[2017-03-20 05:15] LABS: Add Diff/Slide Review? Slide Review Added; Red Cell Distribution Width 22 % (10.5-15)
[2017-03-20 05:19] LABS: BUN/Creatinine Ratio 43.6 (8-20); Calcium 10.3 mg/dL (8.6-10.3); EGFR African American 94.2 (>60); EGFR Non-African American 73.2 (>60); Potassium 4.7 mmol/L (3.5-5.0)
[2017-03-20] MEDS: oxyCODONE TAB* 5 MG TAB PO PRN ×3 (06:51→21:31)
[2017-03-20] MEDS: Insulin LISPRO* 1 UNITS UNIT SUBCUT SCH ×7 (08:04→21:29)
[2017-03-20] MEDS: Lactulose* 15 ML UDC PO SCH ×5 (09:04→21:05)
[2017-03-20] MEDS: Polyethylene Glycol 3350* 17 GM PACKET PO SCH (09:04)
[2017-03-20] MEDS: Omeprazole CAP* 20 MG PO SCH (09:04)
[2017-03-20] MEDS: RiFAXimin* 550 MG TAB PO SCH ×2 (09:04→21:30)
[2017-03-20] MEDS: Oxybutynin TAB* 5 MG PO SCH ×2 (09:04→21:05)
[2017-03-20] MEDS: levETIRAcetam 500 MG IVPREMIX* 500 MG/100 ML BAG IV SCH ×2 (09:15→21:30)
--- NOTE | 2017-03-20 09:16 | PN ---
Progress Note - Progress Note Date of Service: 03/20/17 SOAP: Subjective: []No events ON. In ICU. No JERRY. Reported mild fluctuations in mental status earlier this am. Now baseline per nurse. Objective: []VSS, Afebrile AAOx2-3 NINFA, face symmetric, Rissa 4-5/5 no pronator drift. Sensory grossly intact to light touch. Assessment: []71 yof HD #4, liver failure, multiple medical problems, reported fall, CHI with rt P/O SAH Plan: [] Monitor VS, Neurochecks. Keep PLT >75k if possible, SZ prophylaxis for 7 days. Adia Tubbs MD
--- NOTE | 2017-03-20 14:05 | PN ---
Subjective Date of Service: 03/20/17 Interval History: HOSPITALIST PROGRESS NOTE Patient seen and examined at bedside. She is more awake today, offers no complaints at this time. Appetite is improving. Had a soft BM earlier today, no diarrhea. No further episodes of epistaxis. Family History: Unchanged from Admission Social History: Unchanged from Admission Past Medical History: Unchanged from Admission Objective Active Medications: Al Hydrox/Mg Hydrox/Simethicone (Maalox Plus*) 30 ml PO Q6H PRN PRN Reason: INDIGESTION Dextrose (D50w Syringe 50 Ml*) 12.5 gm IV PUSH .FOR FS < 60 - SS PRN PRN Reason: FS < 60 Levetiracetam (Keppra Iv Premix*) 500 mg in 100 mls @ 400 mls/hr IV Q12H [facility] Last Admin: 03/20/17 09:15 Dose: 400 mls/hr Insulin Glargine (Lantus(*)) 10 units SUBCUT Q24H [facility] Last Admin: 03/19/17 21:08 Dose: 10 units Insulin Human Lispro (Humalog*) 0 units SUBCUT AC [facility] PRN Reason: Protocol Last Admin: 03/20/17 13:23 Dose: Not Given Insulin Human Lispro (Humalog*) 0 units SUBCUT ACHS [facility] PRN Reason: Protocol Last Admin: 03/20/17 13:29 Dose: 2 unit Lactulose (Lactulose*) 15 ml PO 2100 [facility] Last Admin: 03/19/17 20:57 Dose: 15 ml Lactulose (Lactulose*) 30 ml PO 0900,1200,1500,1800 [facility] Last Admin: 03/20/17 13:29 Dose: 30 ml Omeprazole (Prilosec Cap*) 20 mg PO DAILY@0730 [facility] Last Admin: 03/20/17 09:04 Dose: 20 mg Ondansetron HCl (Zofran Inj*) 4 mg IV Q4H PRN PRN Reason: NAUSEA/VOMITING Last Admin: 03/18/17 20:25 Dose: 4 mg Oxybutynin Chloride (Ditropan Tab*) 5 mg PO BID [facility] PRN Reason: Protocol Last Admin: 03/20/17 09:04 Dose: 5 mg Oxycodone HCl (Roxycodone Tab*) 2.5 mg PO Q8H PRN PRN Reason: PAIN Last Admin: 03/20/17 13:52 Dose: 2.5 mg Polyethylene Glycol/Electrolytes (Miralax*) 17 gm PO DAILY [facility] Last Admin: 03/20/17 09:04 Dose: 17 gm Rifaximin (Xifaxan*) 550 mg PO BID [facility] Last Admin: 03/20/17 09:04 Dose: 550 mg Simethicone (Mylicon Tab*) 125 mg PO Q6H PRN PRN Reason: gas Vital Signs - 8 hr 03/20/17 03/20/17 12:42 13:52 Temperature 97.5 F Pulse Rate 61 Respiratory 16 16 Rate Blood Pressure 119/33 (mmHg) O2 Sat by Pulse 100 Oximetry Oxygen Devices in Use Now: Face Tent - 4 liters Appearance: Elderly lady sitting up in bed in NAD eating breakfast. Eyes: No Scleral Icterus Ears/Nose/Mouth/Throat: Mucous Membranes Moist Neck: Trachea Midline Respiratory: Symmetrical Chest Expansion and Respiratory Effort, Clear to Auscultation Cardiovascular: RRR - Normal S1 and S2 Abdominal: NL Sounds; No Tenderness; No Distention Neurological: - - Alert and awake, Ox2 (self and place), GARG Result Diagrams: 03/20/17 04:45 03/20/17 04:45 Assess/Plan/Problems-Billing Assessment: Mrs. Mckee is a 71yo F with PMH of ROSA, liver cirrhosis, portal HTN, s/p TIPS, esophageal varices, UGI bleed, type 2 DM, HLD, hepatic encephalopathy, who presented to ED after sustaining a mechanical fall, found to have a SAH. - Patient Problems (1) Subarachnoid hemorrhage Comment: - Repeat CT brain shows SAH is stable. - Neurosurgery input appreciated. - Transfer to Telemetry. - Continue Keppra prophylaxis #4. (2) Thrombocytopenia Comment: - Secondary to liver cirrhosis. - S/p 2 platelet unit 03/17 with platelets of 36k after transfusion. - D/w Hematology - platelets of 75k may not be possible, due to her liver disease/hypersplenism. - INR is 1.2 and firbrinogen is WNL. - Platelets are 43k today and epistaxis is resolved. (3) Diabetes type 2, controlled Comment: - Now that she's eating more, her glucose is trending up. - Increase Lantus to 15 and continue Lispro SS. (4) Cirrhosis of liver not due to alcohol Comment: - Encephalopathy improving and Ammonia down to 48. - Continue Lactulose and Rifaximin. (5) Coccyx pain Comment: - Xray was negative for fracture. - Pain is improved today - continue to monitor. (6) DVT prophylaxis Comment: - Pharmacological prophylaxis contraindicated in the setting of SAH and thrombocytopenia. - SCDs. (7) Full code status Status and Disposition: Inpatient. Transfer to /Telemetry.
[2017-03-20] MEDS: Insulin GLARGINE(*) 1 UNITS UNIT SUBCUT SCH (21:30)
[2017-03-21] MEDS: Acetaminophen TAB* 325 MG PO PRN ×2 (03:31→23:32)
[2017-03-21 06:10] LABS: Hematocrit 20 % (35-47); Hemoglobin 7.1 g/dl (12.0-16.0); Mean Corpuscular HGB Conc 35 g/dl (31-36); Mean Corpuscular Hemoglobin 34 pg (27-31); Mean Corpuscular Volume 96 fL (80-97); Mean Platelet Volume 8 um3 (7.4-10.4); Red Cell Distribution Width 22 % (10.5-15); White Blood Count 8.3 10^3/ul (3.5-10.8)
[2017-03-21 06:24] LABS: Comments Flag Yes
[2017-03-21 06:27] LABS: BUN/Creatinine Ratio 35.2 (8-20); Calcium 10.1 mg/dL (8.6-10.3); EGFR Non-African American 81.6 (>60); Potassium 4.6 mmol/L (3.5-5.0)
[2017-03-21] MEDS: Insulin LISPRO* 1 UNITS UNIT SUBCUT SCH ×7 (08:30→21:44)
[2017-03-21] MEDS: levETIRAcetam 500 MG IVPREMIX* 500 MG/100 ML BAG IV SCH ×2 (08:34→21:20)
[2017-03-21] MEDS: Lactulose* 15 ML UDC PO SCH ×4 (08:36→17:56)
[2017-03-21] MEDS: Omeprazole CAP* 20 MG PO SCH (08:38)
[2017-03-21] MEDS: RiFAXimin* 550 MG TAB PO SCH ×2 (08:38→21:17)
[2017-03-21] MEDS: Oxybutynin TAB* 5 MG PO SCH ×2 (08:38→21:17)
[2017-03-21] MEDS: Polyethylene Glycol 3350* 17 GM PACKET PO SCH (08:42)
--- NOTE | 2017-03-21 08:42 | PN ---
Subjective Date of Service: 03/21/17 Interval History: HOSPITALIST PROGRESS NOTE Patient seen and examined at bedside. She is a little bit more lethargic when compared to yesterday, but responds well when family is around. C/o coccyx pain. Family History: Unchanged from Admission Social History: Unchanged from Admission Past Medical History: Unchanged from Admission Objective Active Medications: Acetaminophen (Tylenol Tab*) 650 mg PO Q6H PRN PRN Reason: FEVER/PAIN Last Admin: 03/21/17 03:31 Dose: 650 mg Al Hydrox/Mg Hydrox/Simethicone (Maalox Plus*) 30 ml PO Q6H PRN PRN Reason: INDIGESTION Dextrose (D50w Syringe 50 Ml*) 12.5 gm IV PUSH .FOR FS < 60 - SS PRN PRN Reason: FS < 60 Levetiracetam (Keppra Iv Premix*) 500 mg in 100 mls @ 400 mls/hr IV Q12H [facility] Last Admin: 03/21/17 08:34 Dose: 400 mls/hr Insulin Glargine (Lantus(*)) 10 units SUBCUT Q24H [facility] Last Admin: 03/20/17 21:30 Dose: 10 units Insulin Human Lispro (Humalog*) 0 units SUBCUT AC [facility] PRN Reason: Protocol Last Admin: 03/20/17 18:04 Dose: Not Given Insulin Human Lispro (Humalog*) 0 units SUBCUT ACHS [facility] PRN Reason: Protocol Last Admin: 03/21/17 08:30 Dose: Not Given Lactulose (Lactulose*) 30 ml PO 0900,1200,1500,1800 [facility] Last Admin: 03/21/17 08:36 Dose: 30 ml Lactulose (Lactulose*) 30 ml PO 2100 [facility] Omeprazole (Prilosec Cap*) 20 mg PO DAILY@0730 [facility] Last Admin: 03/21/17 08:38 Dose: 20 mg Ondansetron HCl (Zofran Inj*) 4 mg IV Q4H PRN PRN Reason: NAUSEA/VOMITING Last Admin: 03/18/17 20:25 Dose: 4 mg Oxybutynin Chloride (Ditropan Tab*) 5 mg PO BID [facility] PRN Reason: Protocol Last Admin: 03/21/17 08:38 Dose: 5 mg Oxycodone HCl (Roxycodone Tab*) 2.5 mg PO Q8H PRN PRN Reason: PAIN Last Admin: 03/20/17 21:31 Dose: 2.5 mg Polyethylene Glycol/Electrolytes (Miralax*) 17 gm PO DAILY [facility] Last Admin: 03/20/17 09:04 Dose: 17 gm Rifaximin (Xifaxan*) 550 mg PO BID [facility] Last Admin: 03/21/17 08:38 Dose: 550 mg Simethicone (Mylicon Tab*) 125 mg PO Q6H PRN PRN Reason: gas Vital Signs - 8 hr 03/21/17 04:12 Temperature 97.3 F Pulse Rate 71 Respiratory 16 Rate Blood Pressure 130/32 (mmHg) O2 Sat by Pulse 100 Oximetry Oxygen Devices in Use Now: Face Tent - 4 liters Appearance: Elderly lady lying in bed in NAD. Ears/Nose/Mouth/Throat: Mucous Membranes Moist Neck: Trachea Midline Respiratory: Symmetrical Chest Expansion and Respiratory Effort, Clear to Auscultation Cardiovascular: RRR - Normal S1 and S2 Abdominal: NL Sounds; No Tenderness; No Distention Neurological: - - Lethargic, arousable to voice, follows commands Result Diagrams: 03/21/17 05:41 03/21/17 05:41 Assess/Plan/Problems-Billing Assessment: Mrs. Mckee is a 71yo F with PMH of ROSA, liver cirrhosis, portal HTN, s/p TIPS, esophageal varices, UGI bleed, type 2 DM, HLD, hepatic encephalopathy, who presented to ED after sustaining a mechanical fall, found to have a SAH. - Patient Problems (1) Subarachnoid hemorrhage Comment: - Repeat CT brain shows SAH is stable. - Neurosurgery input appreciated. - Transfer to Telemetry. - Continue Keppra prophylaxis #5/. (2) Thrombocytopenia Comment: - Secondary to liver cirrhosis. - S/p 2 platelet unit 03/17 with platelets of 36k after transfusion. - D/w Hematology - platelets of 75k may not be possible, due to her liver disease/hypersplenism. - INR is 1.17 and firbrinogen is WNL. - Platelets are 49k today and she had no further episodes of epistaxis. (3) Diabetes type 2, controlled Comment: - Controlled. - Continue Lantus and Lispro SS. (4) Cirrhosis of liver not due to alcohol Comment: - Encephalopathy is unchanged and Ammonia is up to 65. - Increase Lactulose and continue Rifaximin. (5) Coccyx pain Comment: - Xray was negative for fracture. - C/o more pain today. Family declines CT pelvis to look for fracture, but requests more pain meds. Will increase oxycodone to 5mg and monitor mental status. (6) DVT prophylaxis Comment: - Pharmacological prophylaxis contraindicated in the setting of SAH and thrombocytopenia. - SCDs. (7) Full code status Status and Disposition: Inpatient. Family interested in Palliative care conversations.
[2017-03-21] MEDS: oxyCODONE TAB* 5 MG TAB PO PRN ×2 (11:11→21:19)
[2017-03-21] MEDS: Ondansetron INJ* 2 MG/ML VIAL IV PRN (12:59)
--- NOTE | 2017-03-21 19:07 | PN ---
Progress Note - Progress Note Date of Service: 03/21/17 SOAP: Subjective: []No events ON. on regular floor. No JERRY. Objective: []VSS, Afebrile AAOx2-3 NINFA, face symmetric, Rissa 4-5/5 no pronator drift. Sensory grossly intact to light touch. Assessment: []71 yof HD #5, liver failure, multiple medical problems, reported fall, CHI with rt P/O SAH Plan: []Monitor VS, Neurochecks. Keep PLT >75k if possible, SZ prophylaxis for 7 days. Discussed with patient's who is a retired neurologist and patient's daughter. They understand patient's condition and the difficulty to intervene surgically if her condition deteriorates. They would also prefer to avoid surgical intervention, even in the event of a worsening of patient's condition and expansion of hematoma. Will be available as needed. Thank you for allowing us to participate in the carte of this patient. Please do not hesitate to contact our office in case you have any questions or concerns regarding this patient. Adia Tubbs MD
[2017-03-21] MEDS: Insulin GLARGINE(*) 1 UNITS UNIT SUBCUT SCH (21:45)
[2017-03-22 08:06] LABS: Comments Flag Yes; Hematocrit 23 % (35-47); Hemoglobin 8.1 g/dl (12.0-16.0); Mean Corpuscular HGB Conc 36 g/dl (31-36); Mean Corpuscular Hemoglobin 33 pg (27-31); Mean Corpuscular Volume 94 fL (80-97); Mean Platelet Volume 8 um3 (7.4-10.4); Red Blood Count 2.45 10^6/ul (4.0-5.4); Red Cell Distribution Width 22 % (10.5-15)
[2017-03-22] MEDS: Omeprazole CAP* 20 MG PO SCH (08:13)
[2017-03-22] MEDS: RiFAXimin* 550 MG TAB PO SCH ×2 (08:13→20:31)
[2017-03-22] MEDS: Polyethylene Glycol 3350* 17 GM PACKET PO SCH (08:13)
[2017-03-22] MEDS: Insulin LISPRO* 1 UNITS UNIT SUBCUT SCH ×7 (08:13→21:23)
[2017-03-22] MEDS: Oxybutynin TAB* 5 MG PO SCH ×2 (08:13→20:31)
[2017-03-22 08:17] LABS: Albumin 1.9 g/dL (3.2-5.2); BUN/Creatinine Ratio 32.9 (8-20); Calcium 10.3 mg/dL (8.6-10.3); EGFR African American 101.7 (>60); Globulin 4.2 g/dL (2-4); Potassium 4.6 mmol/L (3.5-5.0); Total Bilirubin 4.4 mg/dL (0.2-1.0); Total Protein 6.1 g/dL (6.4-8.9)
[2017-03-22] MEDS: levETIRAcetam 500 MG IVPREMIX* 500 MG/100 ML BAG IV SCH ×2 (09:23→21:24)
[2017-03-22] MEDS: Lactulose* 15 ML UDC PO SCH ×4 (09:24→19:14)
--- NOTE | 2017-03-22 09:49 | PN ---
Subjective Date of Service: 03/22/17 Interval History: HOSPITALIST PROGRESS NOTE Patient seen and examined at bedside. She is more lethargic today. Coccyx pain is still present. PO intake is minimal. Family History: Unchanged from Admission Social History: Unchanged from Admission Past Medical History: Unchanged from Admission Objective Active Medications: Acetaminophen (Tylenol Tab*) 650 mg PO Q6H PRN PRN Reason: FEVER/PAIN Last Admin: 03/21/17 23:32 Dose: 650 mg Al Hydrox/Mg Hydrox/Simethicone (Maalox Plus*) 30 ml PO Q6H PRN PRN Reason: INDIGESTION Dextrose (D50w Syringe 50 Ml*) 12.5 gm IV PUSH .FOR FS < 60 - SS PRN PRN Reason: FS < 60 Levetiracetam (Keppra Iv Premix*) 500 mg in 100 mls @ 400 mls/hr IV Q12H [facility] Last Admin: 03/22/17 09:23 Dose: 400 mls/hr Insulin Glargine (Lantus(*)) 10 units SUBCUT Q24H [facility] Last Admin: 03/21/17 21:45 Dose: 10 units Insulin Human Lispro (Humalog*) 0 units SUBCUT AC [facility] PRN Reason: Protocol Last Admin: 03/22/17 09:29 Dose: Not Given Insulin Human Lispro (Humalog*) 0 units SUBCUT ACHS [facility] PRN Reason: Protocol Last Admin: 03/22/17 08:13 Dose: 1 unit Lactulose (Lactulose*) 30 ml PO 0900,1200,1500,1800 [facility] Last Admin: 03/22/17 09:24 Dose: 30 ml Lactulose (Lactulose*) 30 ml PO 2100 [facility] Last Admin: 03/21/17 21:16 Dose: 30 ml Omeprazole (Prilosec Cap*) 20 mg PO DAILY@0730 [facility] Last Admin: 03/22/17 08:13 Dose: 20 mg Ondansetron HCl (Zofran Inj*) 4 mg IV Q4H PRN PRN Reason: NAUSEA/VOMITING Last Admin: 03/21/17 12:59 Dose: 4 mg Oxybutynin Chloride (Ditropan Tab*) 5 mg PO BID [facility] PRN Reason: Protocol Last Admin: 03/22/17 08:13 Dose: 5 mg Oxycodone HCl (Roxycodone Tab*) 5 mg PO Q8H PRN PRN Reason: PAIN Last Admin: 03/21/17 21:19 Dose: 5 mg Polyethylene Glycol/Electrolytes (Miralax*) 17 gm PO DAILY [facility] Last Admin: 03/22/17 08:13 Dose: 17 gm Rifaximin (Xifaxan*) 550 mg PO BID [facility] Last Admin: 03/22/17 08:13 Dose: 550 mg Simethicone (Mylicon Tab*) 125 mg PO Q6H PRN PRN Reason: gas Vital Signs - 8 hr 03/22/17 03/22/17 03:29 08:00 Temperature 98.5 F Pulse Rate 67 Respiratory 20 16 Rate Blood Pressure 124/32 (mmHg) O2 Sat by Pulse 90 Oximetry Oxygen Devices in Use Now: None Appearance: Elderly frail lady sitting up in bed in NAD. Eyes: - - mild jaundice Ears/Nose/Mouth/Throat: Mucous Membranes Moist Neck: Trachea Midline Respiratory: Symmetrical Chest Expansion and Respiratory Effort, Clear to Auscultation Cardiovascular: RRR - Normal S1 and S2 Abdominal: NL Sounds; No Tenderness; No Distention Neurological: - - Lethargic, arousable to voice, oriented to self and place, follows commands, GARG Result Diagrams: 03/22/17 07:52 03/22/17 07:52 Assess/Plan/Problems-Billing Assessment: Mrs. Mckee is a 71yo F with PMH of ROSA, liver cirrhosis, portal HTN, s/p TIPS, esophageal varices, UGI bleed, type 2 DM, HLD, hepatic encephalopathy, who presented to ED after sustaining a mechanical fall, found to have a SAH. - Patient Problems (1) Subarachnoid hemorrhage Comment: - Repeat CT brain shows SAH is stable. - Neurosurgery input appreciated. - Continue Keppra prophylaxis #6/7. (2) Thrombocytopenia Comment: - Secondary to liver cirrhosis. - S/p 2 platelet unit 03/17 with platelets of 36k after transfusion. - D/w Hematology - platelets of 75k may not be possible, due to her liver disease/hypersplenism. - INR is 1.17 and firbrinogen is WNL. - Platelets are 46k today and she had no further episodes of epistaxis. (3) Diabetes type 2, controlled Comment: - Controlled. - Continue Lantus and Lispro SS. (4) Cirrhosis of liver not due to alcohol Comment: - Ammonia is 66. - Will Increase Lactulose again and continue Rifaximin. (5) Coccyx pain Comment: - Xray was negative for fracture. - Suspect her increased lethargy today is due to oxycodone 5mg, but her pain is still intense. (6) DVT prophylaxis Comment: - Pharmacological prophylaxis contraindicated in the setting of SAH and thrombocytopenia. - SCDs. (7) Full code status Status and Disposition: Inpatient. Palliative care consult requested.
[2017-03-22] MEDS: oxyCODONE TAB* 5 MG TAB PO PRN ×2 (10:41→21:28)
--- NOTE | 2017-03-22 13:38 | CONS ---
CC: Chris Simpson MD; Pamela Mejia MD * PALLIATIVE CARE CONSULTATION: DATE OF CONSULT: 03/22/17. PRIMARY CARE PHYSICIAN: Chris Simpson MD REFERRING PHYSICIAN: Pamela Mejia MD REASON FOR CONSULTATION: Evaluation for hospice. HOSPITAL COURSE: This is a 71-year-old female with a past medical history of end- stage liver disease with history of esophageal varices and portal hypertension, who presented to the emergency room on 03/17/17 after having a mechanical fall. Workup was found to have a subarachnoid hemorrhage and a small subdural hematoma. Patient was admitted to the ICU. She had a neurosurgery evaluation. They recommended no intervention. They did recommend seizure prophylaxis for 7 days and to receive platelets, which she has been refractory to despite getting transfused several times. Neurologically, patient has showed no focal neurologic deficits; however, she has been having issues with pelvic pain, head pain and diffuse pain. She has also been lethargic the majority of her hospitalization. She is on a rather aggressive lactulose regimen. She was seen by Physical Therapy on 03/21/17 and they were unable to evaluate her. She was difficult to arouse. There was discussion with Dr. Mejia and her who is a retired neurologist and the daughter, Jossy, who is the healthcare proxy regarding palliative hospice care. On my encounter with the patient, she is very lethargic. She is able to wake up, but states she keeps getting confused about where she is between the hospital and [facility]. She is having a hard time answering questions appropriately. She states she has pain everywhere and the reason why she is here is because she broke her tailbone. Therefore, having difficulty discussing goals of care and a more specific review of systems. I did speak with the daughter, Jossy at length regarding the fact that she is eligible for hospice with a terminal diagnosis of end-stage liver disease and secondary diagnosis of subarachnoid hemorrhage. The daughter and the are very interested in hospice at [facility]. However, they would like their mother to be more alert and have capacity to make this decision for herself. PAST MEDICAL HISTORY: 1. Nonalcoholic liver disease and cirrhosis. 2. History of portal hypertension. 3. Esophageal varices bleed, status post banding. 4. Diabetes. 5. History of aortic sclerosis. 6. Hyperlipidemia. 7. History of hemolytic anemia. 8. History of TIPS in November 2016 at [place]. 9. This is her 4th admission in 2017. MEDICATIONS: 1. Tylenol 650 mg every 6 hours as needed. 2. Maalox 30 mL q.6 hours as needed. 3. Insulin 10 units at bedtime. 4. Lispro sliding scale. 5. Keppra 500 mg IV q.12. 6. Lactulose 30 mL at 2100 hours and 45 mL at 0900 hours, 1200 hours, 1500 hours, and 1800 hours. 7. Omeprazole 20 mg daily. 8. Zofran 4 mg IV q.4 hours as needed. 9. Oxybutynin 5 mg p.o. b.i.d. 10. Oxycodone 5 mg q.6 hours as needed. 11. MiraLAX 17 g daily. 12. Rifaximin 550 mg p.o. b.i.d. 13. Simethicone 125 mg p.o. q.6 hours as needed. ALLERGIES: GEMFIBROZIL, LISINOPRIL. FAMILY HISTORY: Mother from the stroke. SOCIAL HISTORY: Patient was living at [facility]. She is a retired critical care nurse. Her is a retired neurologist. No history of smoking, alcohol or illicit drug use. Her healthcare proxy is her daughter, Jossy; and secondary is her . Currently, her code status is full code. REVIEW OF SYSTEMS: Limited due to the patient's lethargy. PHYSICAL EXAM: Vitals: Temp 98.5, pulse rate 69, respiratory rate 20, oxygen saturation is 98% on room air, blood pressure 124/32. HEENT: Head is normocephalic. Pupils equal and reactive. Anicteric. Oropharynx: Mucous membranes are moist. Neck: Supple, no lymphadenopathy. Cardiac: Regular rate and rhythm with ectopic beats. 2/6 systolic murmur, most prominent at the right sternal base. Abdomen: Some mild distention, soft, nontender. Extremities: No clubbing, cyanosis or edema. +1 DP. Neurologic: Patient with spontaneous movements of her extremities. She is alert and oriented x1. Oriented to self only. LABORATORY DATA: White count 7, hemoglobin 8.1, hematocrit 23, platelets 46. INR is 1.23. Sodium 132, potassium 4.6, chloride 27, BUN 24, creatinine 0.73, albumin is 1.9. Total bilirubin is 4.4. RADIOGRAPHIC DATA: Head CT from 03/19/17, shows stable right parietal occipital subarachnoid hemorrhage. ASSESSMENT: This is a 71-year-old female with past medical history of end- stage liver disease status post esophageal variceal bleed and TIPS procedure, who presents to the emergency room with a mechanical fall, found to have a subarachnoid hemorrhage. Patient has remained quite lethargic, unable to participate in physical therapy. Her capacity seems to wax and wane. On my encounter, patient lacks capacity to make any medical decisions. I did speak with the daughter, Jossy who is a healthcare proxy, that she is eligible for hospice with a principal diagnosis of end-stage liver disease and secondary diagnosis of subarachnoid hemorrhage and malnutrition. The daughter and the are very interested in hospice. However, there are reluctant to commit because they want the patient to be able to participate in this conversation. They are willing to enroll her and discuss more about her code status if she becomes more lucid. They were not willing to change her code status at this time. The plan is to follow up this afternoon to speak with the patient and meet with our manager social, discuss more of the details of when enrolment can happen. It is possible that her lethargy is also contributed from the Keppra that she is on and it may improve when she is off the Keppra, so may consider more aggressive lactulose regimen. However, her p.o. intake is quite poor, so it may not make a difference. Thank you for this consultation and we will follow along with you. PATIENT TIME: Greater than 90 minutes spent doing the consultation, more than half the time was spent in direct patient contact. [id number]/[facility] #: [id number] [place]
--- NOTE | 2017-03-22 15:33 | ED ---
Shabbir Livingston Thomas, scribed for Marisol Carter MD on 03/17/17 at 0007 . Head Injury - HPI Summary HPI Summary: The pt is a 71 y/o female accompanied by her daughter and [facility] complaining of head pain, coccyx pain, and left hip pain. The patient had an accidental fall that occurred in the shower today at 20:00 in which she struck the back of her head. She is somewhat sleepy in the ED, which is normal for her. The patient has a Hx of liver failure and DM Type II. She has blood in her mouth and dried both in her nares that is somewhat normal for her. - History Of Current Complaint Chief Complaint: EDHeadInjury Stated Complaint: FALL Time Seen by Provider: 03/16/17 23:25 Hx Obtained From: Patient Hx Last Menstrual Period: n/a Onset/Duration: Started Hours Ago - fall today at 20:00, Still Present Onset of Pain: Immediate Severity Currently: Severe Pain Intensity: 8 Pain Scale Used: 0-10 Numeric Location of Head Injury: Occipital Location: Discrete At: - left hip, coccyx Aggravating Factor(s): Movement Associated Signs And Symptoms: Other: - Head pain, coccyx pain, left hip pain, bloody in mouth, blood in nares Anticoagulant Therapy: Other: - Hx of liver failure - Allergies/Home Medications Allergies/Adverse Reactions: Allergies Allergy/AdvReac Type Severity Reaction Status Date / Time Gemfibrozil Allergy Mild Unknown Verified 03/12/17 10:34 Reaction Details Lisinopril Allergy Mild Rash Verified 03/12/17 10:34 Home Medications: Home Medications Acetaminophen SUPP* [Tylenol Supp*] 650 mg NM Q6H PRN 03/17/17 [History Confirmed 03/17/17] Acetaminophen [Tylenol] 650 mg PO Q6H PRN 03/17/17 [History Confirmed 03/17/17] Fe Bisglycinate Chelate-Vit C- [Gentle Iron] 1 cap PO DAILY 03/17/17 [History Confirmed 03/17/17] Lactulose* 15 ml PO SEE INSTRUCTIONS 03/17/17 [History Confirmed 03/17/17] Polyethylene Glycol 3350* [Miralax*] 8.5 gm PO SEE INSTRUCTIONS 03/17/17 [ History Confirmed 03/17/17] PMH/Surg Hx/FS Hx/Imm Hx Previously Healthy: No Endocrine/Hematology History: Reports: Hx Diabetes, Hx Anemia Cardiovascular History: Reports: Hx Hypercholesterolemia, Hx Hypertension GI History: Reports: Hx Cirrhosis, Other GI Disorders - history of GI bleed, and esophageal bleed. fatty liver disease Sensory History: Reports: Hx Contacts or Glasses, Hx Hearing Aid, Hx Hearing Problem Denies: Hx Legally Blind, Hx Deafness Opthamlomology History: Reports: Hx Contacts or Glasses Denies: Hx Legally Blind Neurological History: Reports: Hx Migraine - In her 40s - Surgical History Surgery Procedure, Year, and Place: TIPS Hx Anesthesia Reactions: No - Immunization History Date of Influenza Vaccine: 01/2017 Infectious Disease History: No Infectious Disease History: Denies: Traveled Outside the [place] in Last 30 Days - Family History Known Family History: Positive: Other - cancer, perforated bowel, alzheimers - Social History Alcohol Use: None Alcohol Amount: former- rare Hx Substance Use: No Substance Use Type: Reports: None Hx Tobacco Use: Yes Smoking Status (MU): Former Smoker Review of Systems Negative: Fever, Chills Negative: Blurred Vision, Diplopia Positive: Other - Blood in mouth and nares. Negative: Sore Throat Negative: Chest Pain Negative: Shortness Of Breath, Cough Negative: Vomiting, Diarrhea, Nausea Negative: dysuria, hematuria Positive: Other - Coccyx pain, left hip pain Negative: Rash, Bruising Positive: Headache Negative: Anxious, Depressed All Other Systems Reviewed And Are Negative: No Physical Exam - Summary Physical Exam Summary: Appearance: Alert, conversive, nontoxic appearing Skin: Warm, dry. There is an abrasion to the left medial knee. There is an abrasion to the right infrascapular region. No mottling, no rashes. Head: There is a contusion to the medial right occiput. ENT: EOMI, PERRL. Dry mucous membranes. There is dried blood in the left naris and right naris. There is bloody mouth which is common for her. Neck: No masses on the neck, supple Respiratory: Clear to auscultation, breath sounds present, no rales, no rhonchi , no wheezes Cardiovascular: RRR, pulses are symmetrical in both lower and upper extremities Abdomen: Soft, non-tender Bowel Sounds: Present Musculoskeletal: No CVA tenderness, no obvious deformity, moving all extremities in a grossly normal manner Neurological: A&Ox3, CN II-XII Intact. She has great strength in the lower extremities equal on both sides. Psychiatric: Normal affect and mood Triage Information Reviewed: Yes Vital Signs On Initial Exam: Initial Vitals Temp Pulse Resp BP Pulse Ox 98.3 F 43 16 132/30 100 03/16/17 22:09 03/16/17 22:09 03/16/17 22:09 03/16/17 22:09 03/16/17 22:09 Vital Signs Reviewed: Yes - Wayne Coma Scale Coma Scale Total: 15 Diagnostics - Vital Signs Vital Signs Temp Pulse Resp BP Pulse Ox 03/16/17 23:30 88 123/25 99 03/16/17 23:00 75 116/26 99 03/16/17 22:30 122/30 03/16/17 22:27 85 100 03/16/17 22:18 78 98 03/16/17 22:17 120/33 03/16/17 22:09 98.3 F 43 16 132/30 100 - Laboratory Lab Results: Lab Results 03/16/17 03/16/17 03/17/17 Range/Units 00:20 00:20 00:20 WBC 12.5 H (3.5-10.8) 10^3/ul RBC 2.58 L (4.0-5.4) 10^6/ul Hgb 8.6 L (12.0-16.0) g/dl Hct 25 L (35-47) % MCV 96 (80-97) fL MCH 33 H (27-31) pg MCHC 35 (31-36) g/dl RDW 25 H (10.5-15) % Plt Count 48 L (150-450) 10^3/ul MPV 8 (7.4-10.4) um3 Neut % (Auto) 92.4 H (38-83) % Lymph % (Auto) 1.0 L (25-47) % [place] % (Auto) 0.4 L (1-9) % Eos % (Auto) 4.6 (0-6) % Baso % (Auto) 1.6 (0-2) % Absolute Neuts (auto) 11.6 H (1.5-7.7) 10^3/ul Absolute Lymphs (auto) 0.1 L (1.0-4.8) 10^3/ul Absolute Monos (auto) 0.1 (0-0.8) 10^3/ul Absolute Eos (auto) 0.6 (0-0.6) 10^3/ul Absolute Basos (auto) 0.2 (0-0.2) 10^3/ul Absolute Nucleated RBC 0.01 10^3/ul Nucleated RBC % 0.1 INR (Anticoag Therapy) (0.77-1.02) APTT (26.0-36.3) seconds Sodium 127 L (133-145) mmol/L Potassium 4.8 (3.5-5.0) mmol/L Chloride 94 L (101-111) mmol/L Carbon Dioxide 29 (22-32) mmol/L Anion Gap 4 (2-11) mmol/L BUN 41 H (6-24) mg/dL Creatinine 0.85 (0.51-0.95) mg/dL Est GFR ( Amer) 85.3 (>60) Est GFR (Non-Af Amer) 66.3 (>60) BUN/Creatinine Ratio 48.2 H (8-20) Glucose 170 H (70-100) mg/dL Calcium 10.5 H (8.6-10.3) mg/dL Total Bilirubin 3.20 H (0.2-1.0) mg/dL AST 50 H (13-39) U/L ALT 31 (7-52) U/L Alkaline Phosphatase 94 (34-104) U/L Ammonia 56 H (16-53) mol/L Total Protein 7.6 (6.4-8.9) g/dL Albumin 2.5 L (3.2-5.2) g/dL Globulin 5.1 H (2-4) g/dL Albumin/Globulin Ratio 0.5 L (1-3) Blood Type Antibody Screen Crossmatch 03/17/17 03/17/17 Range/Units 00:20 00:20 WBC (3.5-10.8) 10^3/ul RBC (4.0-5.4) 10^6/ul Hgb (12.0-16.0) g/dl Hct (35-47) % MCV (80-97) fL MCH (27-31) pg MCHC (31-36) g/dl RDW (10.5-15) % Plt Count (150-450) 10^3/ul MPV (7.4-10.4) um3 Neut % (Auto) (38-83) % Lymph % (Auto) (25-47) % [place] % (Auto) (1-9) % Eos % (Auto) (0-6) % Baso % (Auto) (0-2) % Absolute Neuts (auto) (1.5-7.7) 10^3/ul Absolute Lymphs (auto) (1.0-4.8) 10^3/ul Absolute Monos (auto) (0-0.8) 10^3/ul Absolute Eos (auto) (0-0.6) 10^3/ul Absolute Basos (auto) (0-0.2) 10^3/ul Absolute Nucleated RBC 10^3/ul Nucleated RBC % INR (Anticoag Therapy) 1.13 H (0.77-1.02) APTT 31.7 (26.0-36.3) seconds Sodium (133-145) mmol/L Potassium (3.5-5.0) mmol/L Chloride (101-111) mmol/L Carbon Dioxide (22-32) mmol/L Anion Gap (2-11) mmol/L BUN (6-24) mg/dL Creatinine (0.51-0.95) mg/dL Est GFR ( Amer) (>60) Est GFR (Non-Af Amer) (>60) BUN/Creatinine Ratio (8-20) Glucose (70-100) mg/dL Calcium (8.6-10.3) mg/dL Total Bilirubin (0.2-1.0) mg/dL AST (13-39) U/L ALT (7-52) U/L Alkaline Phosphatase (34-104) U/L Ammonia (16-53) mol/L Total Protein (6.4-8.9) g/dL Albumin (3.2-5.2) g/dL Globulin (2-4) g/dL Albumin/Globulin Ratio (1-3) Blood Type A Positive Antibody Screen Negative Crossmatch See Detail Result Diagrams: 03/22/17 07:52 03/22/17 07:52 Lab Statement: Any lab studies that have been ordered have been reviewed, and results considered in the medical decision making process. - Radiology CXR Xray Interpretation: Positive (See Comments) - There is a tiny pleural effusion on the right. There is a small triangle shadow to the right lower base that is not consistent with an infectious process. There is a very small dense lesion to the patient's proximal right humerus, however this extends beyond the bone so this is likely a shadow or an overlying object. Radiology Interpretation Completed By: ED Physician Pelvis XR Xray Interpretation: No Acute Changes - No fracture. Radiology Interpretation Completed By: Radiologist - CT CT C-Spine CT Interpretation: No Acute Changes - No acute fracture or malalignment. Minimal spondylosis. CT Interpretation Completed By: Radiologist CT Head CT Interpretation: Positive (See Comments) - Positive for acute right parieto- occipital subarachnoid hemorrhage. There may be a very small associated subural component as well. The blood does not exert any significant mass effect and there is no shift or herniation. No detectable infarct. Involutional changes. Osseous structures are intact. CT Interpretation Completed By: Radiologist Re-Evaluation - Re-Evaluation First Eval Re-Evaluation Time: 01:10 Change: Unchanged Comment: I informed the patient of the CT Head results. I asked her if she would like me to call her daughter, and the patient told me that she does not want me to call her daughter now. The daughter will be informed in the morning as per the patient's wishes. Head Injury Course/Dx Assessment/Plan: The pt is a 71 y/o female accompanied by her daughter and [facility] complaining of head pain after a fall that occurred in the shower. She is diagnosed with subarachnoid hemorrhage , subdural hematoma, fall, and liver failure. Dr. Tubbs, neurosurgery, will see the patient in the morning. The patient is admitted to medicine. - Diagnoses Provider Diagnoses: Subarachnoid hemorrhage, Subdural hematoma, Fall, Liver failure - Physician Notifications Discussed Care Of Patient With: Nicolasa Tubbs Time Discussed With Above Provider: 01:30 Instructed by Provider To: Other - Dr. Tubbs will see the patient in the morning. Dr. Mallory, hospitalist, will admit the patient. - Critical Care Time Critical Care Time: 30-74 min - multiple re-evaluations. discussions with neurosurg and hospitlist. time excludes any procedural time. Discharge - Discharge Plan Condition: Stable Disposition: ADMITTED TO [facility] Discharge Disposition Comment: By Dr. Mallory The documentation as recorded by the Shabbir pickering Thomas accurately reflects the service I personally performed and the decisions made by me, Marisol Carter MD.
[2017-03-22] MEDS: Acetaminophen TAB* 325 MG PO PRN (20:31)
[2017-03-22] MEDS: Insulin GLARGINE(*) 1 UNITS UNIT SUBCUT SCH (21:24)
[2017-03-23 06:50] LABS: Hematocrit 24 % (35-47); Hemoglobin 8.4 g/dl (12.0-16.0); Mean Corpuscular HGB Conc 35 g/dl (31-36); Mean Corpuscular Hemoglobin 33 pg (27-31); Mean Corpuscular Volume 94 fL (80-97); Mean Platelet Volume 8 um3 (7.4-10.4); Red Blood Count 2.56 10^6/ul (4.0-5.4); Red Cell Distribution Width 22 % (10.5-15); White Blood Count 7.1 10^3/ul (3.5-10.8)
[2017-03-23 06:56] LABS: Comments Flag Yes
[2017-03-23 07:03] LABS: BUN/Creatinine Ratio 30.1 (8-20); Calcium 10.5 mg/dL (8.6-10.3); EGFR African American 101.7 (>60); Globulin 4.3 g/dL (2-4); Potassium 4.4 mmol/L (3.5-5.0); Total Bilirubin 3.6 mg/dL (0.2-1.0); Total Protein 6.3 g/dL (6.4-8.9)
[2017-03-23] MEDS: Polyethylene Glycol 3350* 17 GM PACKET PO SCH (08:15)
[2017-03-23] MEDS: Lactulose* 15 ML UDC PO SCH ×5 (08:33→17:55)
[2017-03-23] MEDS: levETIRAcetam 500 MG IVPREMIX* 500 MG/100 ML BAG IV SCH ×2 (08:33→22:24)
[2017-03-23] MEDS: RiFAXimin* 550 MG TAB PO SCH ×2 (08:35→22:20)
[2017-03-23] MEDS: Omeprazole CAP* 20 MG PO SCH (08:35)
[2017-03-23] MEDS: Oxybutynin TAB* 5 MG PO SCH ×2 (08:35→22:19)
[2017-03-23] MEDS: Insulin LISPRO* 1 UNITS UNIT SUBCUT SCH ×7 (09:31→22:18)
--- NOTE | 2017-03-23 11:26 | PN ---
Subjective Date of Service: 03/23/17 Interval History: Patient reports pain in coccyx. She knows her name, but cannot explain why she' s in hospital. Poor PO intake. Having diarrhea from lactulose. When asked about her wishes, she says to keep her comfortable. When asked about dying she says she's not ready to . Family History: Unchanged from Admission Social History: Unchanged from Admission Past Medical History: Unchanged from Admission Objective Active Medications: Acetaminophen (Tylenol Tab*) 650 mg PO Q6H PRN PRN Reason: FEVER/PAIN Last Admin: 03/22/17 20:31 Dose: 650 mg Al Hydrox/Mg Hydrox/Simethicone (Maalox Plus*) 30 ml PO Q6H PRN PRN Reason: INDIGESTION Dextrose (D50w Syringe 50 Ml*) 12.5 gm IV PUSH .FOR FS < 60 - SS PRN PRN Reason: FS < 60 Levetiracetam (Keppra Iv Premix*) 500 mg in 100 mls @ 400 mls/hr IV Q12H [facility] Last Admin: 03/23/17 08:33 Dose: 400 mls/hr Insulin Glargine (Lantus(*)) 10 units SUBCUT Q24H [facility] Last Admin: 03/22/17 21:24 Dose: 10 units Insulin Human Lispro (Humalog*) 0 units SUBCUT AC [facility] PRN Reason: Protocol Last Admin: 03/23/17 09:31 Dose: 2 unit Insulin Human Lispro (Humalog*) 0 units SUBCUT ACHS [facility] PRN Reason: Protocol Last Admin: 03/23/17 09:31 Dose: 1 unit Lactulose (Lactulose*) 30 ml PO 2100 [facility] Last Admin: 03/22/17 20:31 Dose: 30 ml Lactulose (Lactulose*) 45 ml PO 0900,1200,1500,1800 [facility] Last Admin: 03/23/17 08:33 Dose: 45 ml Omeprazole (Prilosec Cap*) 20 mg PO DAILY@0730 [facility] Last Admin: 03/23/17 08:35 Dose: 20 mg Ondansetron HCl (Zofran Inj*) 4 mg IV Q4H PRN PRN Reason: NAUSEA/VOMITING Last Admin: 03/21/17 12:59 Dose: 4 mg Oxybutynin Chloride (Ditropan Tab*) 5 mg PO BID [facility] PRN Reason: Protocol Last Admin: 03/23/17 08:35 Dose: 5 mg Oxycodone HCl (Roxycodone Tab*) 5 mg PO Q8H PRN PRN Reason: PAIN Last Admin: 03/22/17 21:28 Dose: 5 mg Polyethylene Glycol/Electrolytes (Miralax*) 17 gm PO DAILY [facility] Last Admin: 03/23/17 08:15 Dose: Not Given Rifaximin (Xifaxan*) 550 mg PO BID [facility] Last Admin: 03/23/17 08:35 Dose: 550 mg Simethicone (Mylicon Tab*) 125 mg PO Q6H PRN PRN Reason: gas Vital Signs - 8 hr 03/23/17 03/23/17 03/23/17 03:50 03:56 07:53 Temperature 36.3 C 37.1 C Pulse Rate 137 71 Respiratory 20 18 Rate Blood Pressure 89/38 112/38 128/37 (mmHg) O2 Sat by Pulse 100 92 Oximetry Oxygen Devices in Use Now: None Appearance: awake, no respiratory distress Eyes: - - icteric Ears/Nose/Mouth/Throat: NL Teeth, Lips, Gums Neck: Trachea Midline Respiratory: Clear to Auscultation Cardiovascular: RRR Abdominal: - - distended, tender throughout, +BS, no masses Neurological: - - responding to questions w/ vague answers Lines/Tubes/Other Access: Clean, Dry and Intact Peripheral IV Result Diagrams: 03/23/17 06:42 03/23/17 06:42 Assess/Plan/Problems-Billing Assessment: Mrs. Mckee is a 71yo F with PMH of ROSA, liver cirrhosis, portal HTN, s/p TIPS, esophageal varices, UGI bleed, type 2 DM, HLD, hepatic encephalopathy, who presented to ED after sustaining a mechanical fall, found to have a SAH. - Patient Problems (1) Coccyx pain Current Visit: Yes Status: Acute Priority: Medium Code(s): M53.3 - SACROCOCCYGEAL DISORDERS, NOT ELSEWHERE CLASSIFIED SNOMED Code(s): 74094253 Comment: - will increase oxycodone to 10 due to continue pain (2) Subarachnoid hemorrhage Current Visit: Yes Status: Acute Priority: High Code(s): I60.9 - NONTRAUMATIC SUBARACHNOID HEMORRHAGE, UNSPECIFIED SNOMED Code(s): 883376293 Comment: - Repeat CT brain shows SAH is stable. - Neurosurgery input appreciated. - Continue Keppra prophylaxis #10/19, consider switch to PO tomorrow. (3) Cirrhosis of liver not due to alcohol Current Visit: Yes Status: Chronic Priority: High Comment: - Will continue Lactulose and continue Rifaximin. - Palliative care consult reviewed. Will discuss again w/ family when available. (4) Diabetes type 2, controlled Current Visit: Yes Status: Chronic Priority: Low Code(s): E11.9 - TYPE 2 DIABETES MELLITUS WITHOUT COMPLICATIONS SNOMED Code(s): 20634278 Comment: - Controlled. - Continue Lantus and Lispro SS. Status and Disposition: Inpatient due to severity of illness, unsafe at home, will need hospice or SNF
[2017-03-23] MEDS: oxyCODONE TAB* 5 MG TAB PO PRN (15:35)
[2017-03-23] MEDS: Morphine INJ* 2 MG/ML 1 ML SYRINGE (TWO MG - NEW SYRINGE VERSION) IV PRN (22:13)
[2017-03-23] MEDS: Insulin GLARGINE(*) 1 UNITS UNIT SUBCUT SCH (22:17)
[2017-03-24] MEDS: oxyCODONE TAB* 5 MG TAB PO PRN (02:27)
[2017-03-24] MEDS: Insulin LISPRO* 1 UNITS UNIT SUBCUT SCH ×7 (08:48→21:18)
[2017-03-24] MEDS: RiFAXimin* 550 MG TAB PO SCH ×2 (08:53→21:30)
[2017-03-24] MEDS: Omeprazole CAP* 20 MG PO SCH (08:53)
[2017-03-24] MEDS: Oxybutynin TAB* 5 MG PO SCH ×2 (08:53→21:27)
[2017-03-24] MEDS: Morphine INJ* 2 MG/ML 1 ML SYRINGE (TWO MG - NEW SYRINGE VERSION) IV PRN ×2 (08:54→23:55)
[2017-03-24] MEDS: Lactulose* 15 ML UDC PO SCH ×4 (09:01→18:18)
[2017-03-24] MEDS: Polyethylene Glycol 3350* 17 GM PACKET PO SCH (09:09)
[2017-03-24] MEDS: levETIRAcetam 500 MG IVPREMIX* 500 MG/100 ML BAG IV SCH (09:34)
--- NOTE | 2017-03-24 11:09 | PN ---
Subjective Date of Service: 03/24/17 Interval History: Patient reports pain in sacral area. Nursing reports red blanchable area there. She is sitting up on edge of bed today. She has poor appetite, had little breakfast. She reports she lives at [facility], PCP is Dr. Simpson. Family History: Unchanged from Admission Social History: Unchanged from Admission Past Medical History: Unchanged from Admission Objective Active Medications: Acetaminophen (Tylenol Tab*) 650 mg PO Q6H PRN PRN Reason: FEVER/PAIN Last Admin: 03/22/17 20:31 Dose: 650 mg Al Hydrox/Mg Hydrox/Simethicone (Maalox Plus*) 30 ml PO Q6H PRN PRN Reason: INDIGESTION Dextrose (D50w Syringe 50 Ml*) 12.5 gm IV PUSH .FOR FS < 60 - SS PRN PRN Reason: FS < 60 Insulin Glargine (Lantus(*)) 10 units SUBCUT Q24H [facility] Last Admin: 03/23/17 22:17 Dose: 10 units Insulin Human Lispro (Humalog*) 0 units SUBCUT AC [facility] PRN Reason: Protocol Last Admin: 03/24/17 08:48 Dose: Not Given Insulin Human Lispro (Humalog*) 0 units SUBCUT ACHS [facility] PRN Reason: Protocol Last Admin: 03/24/17 10:40 Dose: Not Given Lactulose (Lactulose*) 30 ml PO 2100 [facility] Last Admin: 03/23/17 22:19 Dose: 30 ml Lactulose (Lactulose*) 45 ml PO 0900,1200,1500,1800 [facility] Last Admin: 03/24/17 09:01 Dose: 45 ml Levetiracetam (Keppra Tab*) 500 mg IV BID [facility] Morphine Sulfate (Morphine Inj (Syringe)*) 1 mg IV Q3H PRN PRN Reason: PAIN Last Admin: 03/24/17 08:54 Dose: 1 mg Omeprazole (Prilosec Cap*) 20 mg PO DAILY@0730 [facility] Last Admin: 03/24/17 08:53 Dose: 20 mg Ondansetron HCl (Zofran Inj*) 4 mg IV Q4H PRN PRN Reason: NAUSEA/VOMITING Last Admin: 03/21/17 12:59 Dose: 4 mg Oxybutynin Chloride (Ditropan Tab*) 5 mg PO BID [facility] PRN Reason: Protocol Last Admin: 03/24/17 08:53 Dose: 5 mg Oxycodone HCl (Roxycodone Tab*) 5 mg PO Q8H PRN PRN Reason: PAIN Last Admin: 03/24/17 02:27 Dose: 5 mg Polyethylene Glycol/Electrolytes (Miralax*) 17 gm PO DAILY [facility] Last Admin: 03/24/17 09:09 Dose: Not Given Rifaximin (Xifaxan*) 550 mg PO BID [facility] Last Admin: 03/24/17 08:53 Dose: 550 mg Simethicone (Mylicon Tab*) 125 mg PO Q6H PRN PRN Reason: gas Vital Signs - 8 hr 03/24/17 03/24/17 03/24/17 03:31 06:34 07:49 Temperature 36.6 C 37.4 C Pulse Rate 73 77 Respiratory 20 16 14 Rate Blood Pressure 116/32 125/32 (mmHg) O2 Sat by Pulse 98 93 Oximetry Oxygen Devices in Use Now: OxyMask Appearance: awake and alert Eyes: - - bilat ptosis Ears/Nose/Mouth/Throat: Clear Oropharnyx Respiratory: Symmetrical Chest Expansion and Respiratory Effort, Clear to Auscultation Cardiovascular: NL Sounds; No Murmurs; No JVD, RRR Abdominal: - - soft, distended, no masses Extremities: No Edema Neurological: - - alert, oriented to place, person Lines/Tubes/Other Access: Clean, Dry and Intact Peripheral IV Result Diagrams: 03/23/17 06:42 03/23/17 06:42 Assess/Plan/Problems-Billing Assessment: Mrs. Mckee is a 71yo F with PMH of ROSA, liver cirrhosis, portal HTN, s/p TIPS, esophageal varices, UGI bleed, type 2 DM, HLD, hepatic encephalopathy, who presented to ED after sustaining a mechanical fall, found to have a SAH. - Patient Problems (1) Coccyx pain Current Visit: Yes Status: Acute Priority: Medium Code(s): M53.3 - SACROCOCCYGEAL DISORDERS, NOT ELSEWHERE CLASSIFIED SNOMED Code(s): 21172256 Comment: - will continue prn oxycodone 5 prn - responded well to prn morphine w/o increased delirium (2) Subarachnoid hemorrhage Current Visit: Yes Status: Acute Priority: High Code(s): I60.9 - NONTRAUMATIC SUBARACHNOID HEMORRHAGE, UNSPECIFIED SNOMED Code(s): 455454115 Comment: - Repeat CT brain shows SAH is stable. - clinically improving - switched to PO Keppra today, seizure prophylaxis. (3) Cirrhosis of liver not due to alcohol Current Visit: Yes Status: Chronic Priority: High Comment: - Will continue Lactulose and continue Rifaximin. - Palliative care consult reviewed. Will discuss again w/ family when available. (4) Diabetes type 2, controlled Current Visit: Yes Status: Chronic Priority: Low Code(s): E11.9 - TYPE 2 DIABETES MELLITUS WITHOUT COMPLICATIONS SNOMED Code(s): 56132079 Comment: - well-controlled. - Continue Lantus and Lispro SS. (5) DVT prophylaxis Current Visit: Yes Status: Acute Priority: Low Code(s): [id number] - SNOMED Code(s): 990774184 Comment: - Pharmacological prophylaxis contraindicated in the setting of SAH and thrombocytopenia. - SCDs. Status and Disposition: should go to [facility] ([facility]) in 2-3 days
[2017-03-24] MEDS: Ondansetron INJ* 2 MG/ML VIAL IV PRN (16:14)
[2017-03-24] MEDS ORDERED: levETIRAcetam TAB* 500 MG PO SCH (21:00)
[2017-03-24] MEDS: Insulin GLARGINE(*) 1 UNITS UNIT SUBCUT SCH (21:17)
[2017-03-25] MEDS: oxyCODONE TAB* 5 MG TAB PO PRN ×2 (01:39→13:59)
[2017-03-25 05:51] LABS: Hematocrit 22 % (35-47); Hemoglobin 7.8 g/dl (12.0-16.0); Mean Corpuscular HGB Conc 35 g/dl (31-36); Mean Corpuscular Hemoglobin 33 pg (27-31); Mean Corpuscular Volume 95 fL (80-97); Mean Platelet Volume 8 um3 (7.4-10.4); Red Blood Count 2.33 10^6/ul (4.0-5.4); Red Cell Distribution Width 22 % (10.5-15); White Blood Count 7.2 10^3/ul (3.5-10.8)
[2017-03-25 05:53] LABS: Comments Flag Yes
[2017-03-25 06:05] LABS: ALT 23 U/L (7-52); AST 36 U/L (13-39); Albumin 1.7 g/dL (3.2-5.2); Alkaline Phosphatase 118 U/L (34-104); Anion Gap 1 mmol/L (2-11); BUN/Creatinine Ratio 28.1 (8-20); Blood Urea Nitrogen 16 mg/dL (6-24); CO2 Carbon Dioxide 28 mmol/L (22-32); Calcium 9.3 mg/dL (8.6-10.3); Chloride 104 mmol/L (101-111); EGFR African American 135.2 (>60); EGFR Non-African American 105.2 (>60); Globulin 4.2 g/dL (2-4); Glucose 201 mg/dL (70-100); Potassium 4.1 mmol/L (3.5-5.0); Sodium 133 mmol/L (133-145); Total Protein 5.9 g/dL (6.4-8.9)
[2017-03-25 06:39] LABS: Iron 62 ug/dL (50-212); Total Iron Binding Capacity 123 mcg/dL (250-450); Transferrin 88 mg/dL (203-362)
[2017-03-25 07:11] LABS: Vitamin B12 > 1450 pg/mL (180-914)
[2017-03-25] MEDS: Polyethylene Glycol 3350* 17 GM PACKET PO SCH (09:22)
[2017-03-25] MEDS: Omeprazole CAP* 20 MG PO SCH (09:22)
[2017-03-25] MEDS: Lactulose* 15 ML UDC PO SCH ×4 (09:22→18:18)
[2017-03-25] MEDS: Oxybutynin TAB* 5 MG PO SCH ×2 (09:22→22:06)
[2017-03-25] MEDS: RiFAXimin* 550 MG TAB PO SCH ×2 (09:22→22:06)
[2017-03-25] MEDS: Insulin LISPRO* 1 UNITS UNIT SUBCUT SCH ×7 (10:00→22:05)
--- NOTE | 2017-03-25 10:59 | PN ---
Subjective Date of Service: 03/25/17 Interval History: HOSPITALIST PROGRESS NOTE Patient seen and examined at bedside. She is lethargic but arousable to voice, denies pain at this time. Family History: Unchanged from Admission Social History: Unchanged from Admission Past Medical History: Unchanged from Admission Objective Active Medications: Acetaminophen (Tylenol Tab*) 650 mg PO Q6H PRN PRN Reason: FEVER/PAIN Last Admin: 03/22/17 20:31 Dose: 650 mg Al Hydrox/Mg Hydrox/Simethicone (Maalox Plus*) 30 ml PO Q6H PRN PRN Reason: INDIGESTION Dextrose (D50w Syringe 50 Ml*) 12.5 gm IV PUSH .FOR FS < 60 - SS PRN PRN Reason: FS < 60 Insulin Glargine (Lantus(*)) 10 units SUBCUT Q24H [facility] Last Admin: 03/24/17 21:17 Dose: 10 units Insulin Human Lispro (Humalog*) 0 units SUBCUT AC [facility] PRN Reason: Protocol Last Admin: 03/25/17 10:00 Dose: Not Given Insulin Human Lispro (Humalog*) 0 units SUBCUT ACHS [facility] PRN Reason: Protocol Last Admin: 03/25/17 10:00 Dose: 1 unit Lactulose (Lactulose*) 30 ml PO 2100 [facility] Last Admin: 03/24/17 21:17 Dose: 30 ml Lactulose (Lactulose*) 45 ml PO 0900,1200,1500,1800 [facility] Last Admin: 03/25/17 09:22 Dose: 45 ml Morphine Sulfate (Morphine Inj (Syringe)*) 1 mg IV Q3H PRN PRN Reason: PAIN Last Admin: 03/24/17 23:55 Dose: 1 mg Omeprazole (Prilosec Cap*) 20 mg PO DAILY@0730 [facility] Last Admin: 03/25/17 09:22 Dose: 20 mg Ondansetron HCl (Zofran Inj*) 4 mg IV Q4H PRN PRN Reason: NAUSEA/VOMITING Last Admin: 03/24/17 16:14 Dose: 4 mg Oxybutynin Chloride (Ditropan Tab*) 5 mg PO BID [facility] PRN Reason: Protocol Last Admin: 03/25/17 09:22 Dose: 5 mg Oxycodone HCl (Roxycodone Tab*) 5 mg PO Q8H PRN PRN Reason: PAIN Last Admin: 03/25/17 01:39 Dose: 5 mg Polyethylene Glycol/Electrolytes (Miralax*) 17 gm PO DAILY [facility] Last Admin: 03/25/17 09:22 Dose: Not Given Rifaximin (Xifaxan*) 550 mg PO BID [facility] Last Admin: 03/25/17 09:22 Dose: 550 mg Simethicone (Mylicon Tab*) 125 mg PO Q6H PRN PRN Reason: gas Vital Signs - 8 hr 03/25/17 03/25/17 07:48 08:00 Temperature 97.8 F Pulse Rate 68 Respiratory 16 16 Rate Blood Pressure 118/35 (mmHg) O2 Sat by Pulse 96 Oximetry Oxygen Devices in Use Now: None Appearance: Elderly lady lying in bed in NAD. Ears/Nose/Mouth/Throat: Mucous Membranes Moist Neck: Trachea Midline Respiratory: Symmetrical Chest Expansion and Respiratory Effort, Clear to Auscultation Cardiovascular: RRR - Normal S1 and S2 Abdominal: NL Sounds; No Tenderness; No Distention Neurological: - - Lethargic, arousable to voice, oriented to self Result Diagrams: 03/25/17 05:36 03/25/17 05:36 Assess/Plan/Problems-Billing Assessment: Mrs. Mckee is a 71yo F with PMH of ROSA, liver cirrhosis, portal HTN, s/p TIPS, esophageal varices, UGI bleed, type 2 DM, HLD, hepatic encephalopathy, who presented to ED after sustaining a mechanical fall, found to have a SAH. - Patient Problems (1) Subarachnoid hemorrhage Comment: - Repeat CT brain shows SAH is stable. - Completed 7 days of Keppra for seizure prophylaxis - d/c it. (2) Thrombocytopenia Comment: - Secondary to liver cirrhosis. - Stable around 45-50K. (3) Diabetes type 2, controlled Comment: - Continue Lantus and Lispro SS. (4) Cirrhosis of liver not due to alcohol Comment: - Decrease Lactulose and continue Rifaximin. (5) Coccyx pain Comment: - Continue Morphine/Oxycodone as needed for pain. (6) DVT prophylaxis Comment: - Pharmacological prophylaxis contraindicated in the setting of SAH and thrombocytopenia. - SCDs. (7) DNR (do not resuscitate) Status and Disposition: Anticipate d/c in AM to [facility] with Hospice sign on.
[2017-03-25] MEDS: Insulin GLARGINE(*) 1 UNITS UNIT SUBCUT SCH (22:06)
[2017-03-26 09:01] VITALS: BP 125/22
[2017-03-26] MEDS: Polyethylene Glycol 3350* 17 GM PACKET PO SCH (09:14)
--- NOTE | 2017-03-26 09:23 | DS ---
CC: Dr. Chris Simpson; Dr. Nicol Mallory * DISCHARGE SUMMARY: DATE OF ADMISSION: 03/17/17 DATE OF DISCHARGE: 03/26/17 PRIMARY CARE PROVIDER: Dr. Chris Simpson HOSPICARE PHYSICIAN: Dr. Nicol Mallory DISCHARGE DIAGNOSES: 1. Status post fall with subarachnoid hemorrhage. 2. Hepatic encephalopathy. 3. Advanced liver disease with severe thrombocytopenia. 4. Coccygeal pain. SECONDARY DIAGNOSES: 1. Liver cirrhosis secondary to ROSA. 2. Portal hypertension. 3. Prior GI bleed secondary to esophageal varices. 4. Type 2 diabetes. 5. Aortic sclerosis. 6. Hyperlipidemia. 7. History of hemolytic anemia. 8. 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 9. Moderate protein-calorie malnutrition. MEDICATIONS AT THE TIME TRANSFER: 1. Acetaminophen suppository 650 mg per rectum q.6 hours p.r.n. pain or fever. 2. Acetaminophen 650 mg p.o. q.6 hours p.r.n. pain or fever. 3. Simethicone 125 mg p.o. q.6 hours p.r.n. gas. 4. Rifaximin 550 mg p.o. b.i.d. 5. Omeprazole 20 mg p.o. daily. 6. Dulcolax suppository 10 mg per rectum as needed for constipation. 7. Lactulose 30 mL p.o. at 0900, 1200, 1500, 1800, and 2100. 8. Lantus 10 units subcutaneously daily. 9. Maalox plus 30 mL p.o. q.6 hours p.r.n. indigestion. 10. Oxycodone 5 mg p.o. q.8 hours p.r.n. pain, maximum 15 mg daily. HOSPITAL COURSE: Ms. Mckee is a 71-year-old lady with a past medical history as stated above that presented to the emergency room after sustaining a mechanical fall at [facility]. She got her walker entangled with her shower chair and she fell backwards hitting her tailbone and the back of her head. For more details about her presentation, I refer you to her history and physical. Her initial CT of the brain showed right parietooccipital lobe subarachnoid hemorrhage without significant mass effect or herniation. Cervical spine CT showed mild degenerative changes of the cervical spine without acute fracture or dislocation. Pelvis x-ray showed no evidence for fracture. The patient was admitted to intensive care unit and monitored with neuro checks. She was seen in consultation by Neurosurgery (Dr. Tubbs) and he felt that the patient was doing quite well, neurologically stable with no mass effect on the CT scan, and his recommendation was for conservative treatment. He recommended seizure prophylaxis with Keppra for 7 days and he would like to keep her platelet count above 75,000. The patient became more lethargic, but her neuro checks were unchanged. She had serial CTs of the brain that showed no progression of her subarachnoid. On admission, the patient was found to have a platelet count of 48,000 and those trended down despite multiple transfusions. This case was discussed with Hematology (Dr. Palacio/Dr. Raphael) and both agreed that a goal of 75,000 platelets would not be attainable considering her liver disease and portal hypertension. The highest number we could achieve was 53,000. The patient was also anemic with a hemoglobin of 6.8 and she received a total of 2 PRBCs. Unfortunately, although her subarachnoid was stable, the patient developed hepatic encephalopathy and despite higher doses of lactulose and improvement of her ammonia, her mental status continues to fluctuate. Multiple conversations were had with the family and initially they were reluctant to make any end-of- life decisions as they had hope her mental status would improve and she would be able to participate in the conversations. The patient was seen in consultation by Palliative Care (Dr. Mallory) and she felt that during their encounter, the patient did not have capacity to make any medical decisions and that she would qualify for hospice with a principal diagnosis of end-stage liver disease and secondary diagnosis of subarachnoid hemorrhage and malnutrition. After multiple conversations with [facility], the patient's and daughter agreed that the best option for the patient would be to be discharged back to [facility] with hospice services and the plan is for her to return today to sign on with Hospice at 10:30 a.m. Of note is the fact that the patient had persistent pain in her coccyx area. Her x- ray was negative for fracture and I did offer a CT to look for a possible fracture, but the family declined. At this point, they are not interested in further workup, they are only interested in pain management and comfort, so her oxycodone was increased to 5 mg 3 times a day. PHYSICAL EXAMINATION: Vital Signs: Temperature 100.3, heart rate 76, respiratory rate 18, oxygen saturation 90% on room air, blood pressure 129/20. General: The patient is an elderly, frail lady, lying in bed, in no acute distress. CVS: S1, S2. Regular rate and rhythm. Chest: Breath sounds present bilaterally, decreased in bases. Abdomen: Soft. Bowel sounds present. Neuro: She is lethargic, arousable to voice, follows simple commands , oriented to self and place. DIET: Regular diet for comfort. ACTIVITIES: As tolerated. DISPOSITION: [facility] with hospice sign on today. STATUS WHILE IN THE HOSPITAL: Inpatient. Please keep in mind, this is a summarized version of this patient's prolonged and complex hospital stay. If you need more information, please feel free to call me at [phone] or please obtain the full medical records. TIME SPENT: Approximately 45 minutes was spent to complete the discharge. [id number]/CPS #: [id number]
[2017-03-26] MEDS: Oxybutynin TAB* 5 MG PO SCH (09:40)
[2017-03-26] MEDS: RiFAXimin* 550 MG TAB PO SCH (09:50)
[2017-03-26] MEDS: Lactulose* 15 ML UDC PO SCH (09:51)
[2017-03-26] MEDS: Omeprazole CAP* 20 MG PO SCH (09:51)
[2017-03-26] MEDS: Insulin LISPRO* 1 UNITS UNIT SUBCUT SCH ×2 (09:51→09:52)
== END 2017-03-26 10:00 | DRG 86 ==
LOC: ED 22:06 → ICU 03-17 02:39 → MEDTELE 03-20 12:19 → MED 03-23 23:45
PROVIDERS: ADMIT Pediatrics; ATTEND Internal Medicine
PROC: 30233R1 Transfusion of Nonautologous Platelets into Peripheral Vein, Percutaneous Approach (ICD-10-PCS; principal; 2017-03-17)
PROC: 30233N1 Transfusion of Nonautologous Red Blood Cells into Peripheral Vein, Percutaneous Approach (ICD-10-PCS; 2017-03-21)
DX: S06.6X0A Traumatic subarachnoid hemorrhage without loss of consciousness, initial encounter (principal); I85.10 Secondary esophageal varices without bleeding; E44.0 Moderate protein-calorie malnutrition; D69.59 Other secondary thrombocytopenia; D59.9 Acquired hemolytic anemia, unspecified; K76.6 Portal hypertension; E11.9 Type 2 diabetes mellitus without complications; E78.5 Hyperlipidemia, unspecified; I10 Essential (primary) hypertension; K75.81 Nonalcoholic steatohepatitis (NASH); K72.90 Hepatic failure, unspecified without coma; K74.60 Unspecified cirrhosis of liver; I35.8 Other nonrheumatic aortic valve disorders; S39.92XA Unspecified injury of lower back, initial encounter; M50.30 Other cervical disc degeneration, unspecified cervical region; G43.909 Migraine, unspecified, not intractable, without status migrainosus; D73.1 Hypersplenism; Z66 Do not resuscitate; H91.90 Unspecified hearing loss, unspecified ear; R40.2412 Glasgow coma scale score 13-15, at arrival to emergency department; K21.9 Gastro-esophageal reflux disease without esophagitis; R39.15 Urgency of urination; W17.89XA Other fall from one level to another, initial encounter; Y92.002 Bathroom of unspecified non-institutional (private) residence as the place of occurrence of the external cause; Z88.8 Allergy status to other drugs, medicaments and biological substances; Z68.23 Body mass index [BMI] 23.0-23.9, adult; Z79.4 Long term (current) use of insulin; Z87.891 Personal history of nicotine dependence; Z82.3 Family history of stroke; Z97.4 Presence of external hearing-aid
CPT/HCPCS: 36415; 70450; 71010; 72125; 72170; 80048; 80053; 81003; 82140; 82607; 83540; 83550; 85025; 85049; 85384; 85610; 85730; 86850; 86900; 86901; 86922; A9270-GY; J2270; J2405; P9035; P9040